=== PATIENT | male | born 1970 | race Caucasian/White ===

== ENCOUNTER 2016-09-09 19:06 | Emergency (ER) | payer MEDICARE, OTHER ==
[2016-09-09 19:24] VITALS: PULSE 84
[2016-09-09 20:18] VITALS: BP 147/76; RESP 16; TEMP 97.7
--- NOTE | 2016-09-09 20:39 | ED ---
General Adult HPI - General Chief complaint: Extremity Injury, Upper Stated complaint: Fall/lt elbow pain Time Seen by Provider: 09/09/16 20:11 Source: patient, RN notes reviewed Mode of arrival: EMS Limitations: no limitations - History of Present Illness Initial comments: This is a 46-year-old male presents with left elbow pain after a fall that happened today. Patient states he slipped on the ice and fell directly onto the left elbow. Patient denies any head injury, loss of consciousness, neck pain or back pain. Patient states the pain is worse with flexion and extension of the left arm. Patient denies any numbness/tingling or weakness to the left upper extremity. Patient denies any hand or wrist pain. Patient denies any recent fever, chills, shortness breath, chest pain, abdominal pain, nausea/ vomiting/diarrhea, back pain, hematuria, headache, or visual changes, or any other complaints. - Related Data Home Medications Medication Instructions Recorded Confirmed Cholecalciferol [Vitamin D3] 1,000 unit PO DAILY 09/09/16 09/09/16 Ranitidine HCl [Zantac] 150 mg PO HS 09/09/16 09/09/16 Previous Rx's Medication Instructions Recorded Mirtazapine [Remeron] 45 mg PO HS #60 tab 03/31/16 clonazePAM [KlonoPIN] 0.5 mg PO TID #20 tab 03/31/16 HYDROcodone/APAP 5-325MG [[place] 1 tab PO Q6HR #12 tab 09/09/16 5-325] Allergies Allergy/AdvReac Type Severity Reaction Status Date / Time diphenhydramine HCl AdvReac Hallucinati Verified 09/09/16 19:23 [From Benadryl] ons Review of Systems ROS Statement: Those systems with pertinent positive or pertinent negative responses have been documented in the HPI. ROS Other: All systems not noted in ROS Statement are negative. Past Medical History Past Medical History: GERD/Reflux, Seizure Disorder Additional Past Medical History / Comment(s): anxiety, mitral valve prolapse last seizure 1999 previous suicide attempts, anxiety and depression History of Any Multi-Drug Resistant Organisms: MRSA Date of last positivie culture/infection: 11/18/15 MDRO Source:: HEAD Past Surgical History: Orthopedic Surgery Additional Past Surgical History / Comment(s): left humerus ORIF, lanced lymph nodes Past Anesthesia/Blood Transfusion Reactions: No Reported Reaction Past Psychological History: ADD/ADHD, Anxiety, Depression, Panic Disorder Smoking Status: Current every day smoker Past Alcohol Use History: None Reported Additional Past Alcohol Use History / Comment(s): He smokes 1 ppd (rolls his own ). He uses marijuana regularly. He denies alcohol use. He does not drive. Past Drug Use History: None Reported - Past Family History Father Family Medical History: Cancer Additional Family Medical History / Comment(s): from Hodgkins lymphoma Mother Family Medical History: Cancer Additional Family Medical History / Comment(s): at age 57 from lung cancer. Sister(s) History Unknown: Yes Additional Family Medical History / Comment(s): One sister with no major medical problems. General Exam - General Exam Comments Initial Comments: General: The patient is awake and alert, in no distress, and does not appear acutely ill. Neck: The neck is supple, there is no tenderness or JVD. Cardiovascular: There is a regular rate and rhythm. No murmur, rub or gallop is appreciated. Respiratory: Lungs are clear to auscultation, respirations are non-labored, breath sounds are equal. No wheezes, stridor, rales, or rhonchi. Musculoskeletal: Patient is tender to palpation along the medial and lateral aspects of the left elbow and to the proximal left forearm and distal left humerus. There is mild swelling to the medial aspect of the left elbow. There is no tenderness to palpation of the left hand, wrist or shoulder. Limited range of motion of the left upper extremity due to pain and left elbow, but patient is able to abduct and flex and extend at the left shoulder joint and patient is able to flex and extend his left wrist. All range of motion to the left digits. Strength 5/5 and Sensation intact. Radial pulses 2+ bilaterally. Capillary refill is normal at less than 2 seconds. Neurological: A&O x 3. CN II-XII intact, There are no obvious motor or sensory deficits. Coordination appears grossly intact. Speech is normal. Skin: Skin is warm and dry and no rashes or lesions are noted. Psychiatric: Normal mood and affect. Limitations: no limitations Course Vital Signs 09/09/16 09/09/16 19:21 20:16 Temperature 98.3 F 97.7 F Pulse Rate 84 84 Respiratory 20 16 Rate Blood Pressure 126/72 147/76 O2 Sat by Pulse 98 100 Oximetry Medical Decision Making - Medical Decision Making This is a 46-year-old male who presents with left elbow pain 1 day. On physical exam Patient is tender to palpation along the medial and lateral aspects of the left elbow and to the proximal left forearm and distal left humerus. There is mild swelling to the medial aspect of the left elbow. There is no tenderness to palpation of the left hand, wrist or shoulder. Limited range of motion of the left upper extremity due to pain and left elbow, but patient is able to abduct and flex and extend at the left shoulder joint and patient is able to flex and extend his left wrist. All range of motion to the left digits. Strength 5/5 and Sensation intact. Radial pulses 2+ bilaterally. Capillary refill is normal at less than 2 seconds. Left elbow x-ray was done and reviewed showing: Small chip fracture of the coronoid process of the ulna. Old healed distal humerus fracture. Patient will be a prescription for [place]. Patient was given a sling in the EC today. A long arm posterior OCL splint to the left upper extremity was placed. Neurovascular was rechecked and is intact. Patient was instructed to stay non- weightbearing to the and upper extremity. Patient was instructed to rest, ice, elevate and splint on until follow-up with orthopedics. Discussed with patient to follow-up with orthopedics in the next 1-2 days. Please return to the EC if symptoms worsen or for any other concerns. Patient was receptive to this plan and patient will be discharged home. I discussed his case with attending physician Dr. Fatima who agrees the plan as stated above. Disposition Clinical Impression: Fracture of coronoid process of left ulna Disposition: HOME SELF-CARE Condition: Good Instructions: Elbow Fracture in Adults (ED) Additional Instructions: Please rest, ice, elevate, and use splint for support. Please stay nonweightbearing to the left upper extremity. Please use medication as prescribed Please follow up with orthopedics tomorrow or as soon as possible. Please return to the EC for any worsening symptoms or for any further concerns. Prescriptions: HYDROcodone/APAP 5-325MG [Wilton 5-325] 1 tab PO Q6HR #12 tab Referrals: None,Stated [Primary Care Provider] - 1-2 days Eric Huff DO [Doctor of Osteopathic Medicine] - 1-2 days Time of Disposition: 21:33
--- NOTE | 2016-09-09 20:51 | XR ---
EXAMINATION TYPE: XR elbow complete LT DATE OF EXAM: 09/09/2016 8:41 PM COMPARISON: NONE HISTORY: Pain and swelling TECHNIQUE: 4 views FINDINGS: There is no dislocation. There is evidence of a nondisplaced chip fracture of the coronoid process of the ulna. I see no evidence of a joint effusion. Joint spaces are fairly normal. Radial he ad is intact. There is some deformity of the distal humerus suggestive of old healed fracture. IMPRESSION: Small chip fracture of the coronoid process of the ulna. Old healed distal humerus fractu re.
[2016-09-09] MEDS ORDERED: IBUPROFEN 600 MG TAB PO STA (21:49)
== END 2016-09-09 21:56 | disposition home or self-care (01) ==
LOC: EC 19:06
DX: S42.132A Displaced fracture of coracoid process, left shoulder, initial encounter for closed fracture (principal); K21.9 Gastro-esophageal reflux disease without esophagitis; F41.0 Panic disorder [episodic paroxysmal anxiety]; F32.9 Major depressive disorder, single episode, unspecified; G40.909 Epilepsy, unspecified, not intractable, without status epilepticus; F17.200 Nicotine dependence, unspecified, uncomplicated; Z88.8 Allergy status to other drugs, medicaments and biological substances; Z79.899 Other long term (current) drug therapy; W00.0XXA Fall on same level due to ice and snow, initial encounter
CPT/HCPCS: 29105; 99283

== ENCOUNTER 2017-01-06 09:47 | Observation (INO) | payer MEDICARE, OTHER ==
[2017-01-06] MEDS ORDERED: SODIUM CHLORIDE 0.9% 1,000 ML IV ONE (10:10)
[2017-01-06] MEDS ORDERED: METOCLOPRAMIDE 5 MG/ML 2 ML VIAL IVP STA (10:10)
[2017-01-06] MEDS ORDERED: FAMOTIDINE 20 MG/2 ML VIAL IV STA (10:10)
--- NOTE | 2017-01-06 10:14 | ED ---
Nausea/Vomiting/Diarrhea HPI - General Chief complaint: Nausea/Vomiting/Diarrhea Stated complaint: Abd Pain Time Seen by Provider: 01/06/17 09:57 Source: patient, EMS Mode of arrival: EMS Limitations: no limitations - History of Present Illness Initial comments: This is a 46-year-old male with a history of GERD and platelet history presents emergency department for epigastric abdominal pain, nausea, and vomiting. He states that he has a history of heartburn and sometimes it progresses into this. He states he has not been able to keep anything down for the last couple of days. He denies any diarrhea or dark or bloody stools. He denies any chest pain or shortness of breath. No lightheadedness or syncope. He states that nothing seems to make the discomfort better or worse. He is consistently vomiting. He does not have a history of gallstones. Denies alcohol abuse. He does state that he smokes marijuana daily. No other complaints. - Related Data Home Medications Medication Instructions Recorded Confirmed Ranitidine HCl [Zantac] 150 mg PO HS 09/09/16 01/06/17 ARIPiprazole [Abilify] 2 mg PO DAILY 01/06/17 01/06/17 DULoxetine HCL [Cymbalta] 30 mg PO DAILY 01/06/17 01/06/17 DULoxetine HCL [Cymbalta] 60 mg PO DAILY 01/06/17 01/06/17 Previous Rx's Medication Instructions Recorded Mirtazapine [Remeron] 45 mg PO HS #60 tab 03/31/16 clonazePAM [KlonoPIN] 0.5 mg PO TID #20 tab 03/31/16 Allergies Allergy/AdvReac Type Severity Reaction Status Date / Time diphenhydramine HCl AdvReac Hallucinati Verified 01/06/17 10:01 [From Benadryl] ons Review of Systems ROS Statement: Those systems with pertinent positive or pertinent negative responses have been documented in the HPI. ROS Other: All systems not noted in ROS Statement are negative. Past Medical History Past Medical History: GERD/Reflux, Seizure Disorder Additional Past Medical History / Comment(s): anxiety, mitral valve prolapse last seizure 1999 previous suicide attempts, anxiety and depression History of Any Multi-Drug Resistant Organisms: MRSA Date of last positivie culture/infection: 11/18/15 MDRO Source:: HEAD Past Surgical History: Orthopedic Surgery Additional Past Surgical History / Comment(s): left humerus ORIF, lanced lymph nodes Past Anesthesia/Blood Transfusion Reactions: No Reported Reaction Past Psychological History: ADD/ADHD, Anxiety, Depression, Panic Disorder Smoking Status: Current every day smoker Past Alcohol Use History: None Reported Additional Past Alcohol Use History / Comment(s): He smokes 1 ppd (rolls his own ). He uses marijuana regularly. He denies alcohol use. He does not drive. Past Drug Use History: None Reported - Past Family History Father Family Medical History: Cancer Additional Family Medical History / Comment(s): from Hodgkins lymphoma Mother Family Medical History: Cancer Additional Family Medical History / Comment(s): at age 57 from lung cancer. Sister(s) History Unknown: Yes Additional Family Medical History / Comment(s): One sister with no major medical problems. General Exam - General Exam Comments Initial Comments: Constitutional: Awake alert . Mildly distressed and uncomfortable vomiting at bedside Head: Normocephalic atraumatic Eyes: no conjunctival injection No scleral icterus EOMI Neck: No JVD Supple Heart: Regular rate rhythm normal S1-S2 no murmurs Lungs: Clear to auscultation bilaterally No wheezing No rales Abdomen: Soft nondistended to palpation in the epigastric region without rebound or guarding Extremities: Non edematous DP pulses intact Radial pulses intact Neuro: A&Ox3 No focal neurologic deficits Psych: Appropriate mood and affect Limitations: no limitations Course Vital Signs 01/06/17 01/06/17 09:50 12:30 Temperature 96.8 F L Pulse Rate 55 L 79 Respiratory 18 18 Rate Blood Pressure 164/79 111/59 O2 Sat by Pulse 100 995 H Oximetry - Reevaluation(s) Reevaluation #1: 01/06/17 10:43 EKG showing sinus bradycardia with a rate of 53. No ST segment changes or T- wave inversions. QTC is 373. Other intervals normal. No ectopy. Medical Decision Making - Medical Decision Making This is a 46-year-old male presents emergency department for nausea vomiting and epigastric discomfort. Labwork showed mild elevation of lipase and amylase. Ultrasound did not appear to show any bile duct dilation or gallbladder pathology. After multiple doses of antiemetics and GI medications he did not have any improvement in his symptoms. Morphine did improve it slightly. Started on fluids and will keep nothing by mouth would like to keep an eye for mild pancreatitis. Dr. Ramirez accepts the admission. - Lab Data Result diagrams: 01/06/17 10:48 01/06/17 11:35 Lab Results 01/06/17 01/06/17 01/06/17 Range/Units 10:13 10:48 11:35 WBC 16.3 H (3.8-10.6) k/uL RBC 4.22 L (4.30-5.90) m/uL Hgb 13.8 (13.0-17.5) gm/dL Hct 40.6 (39.0-53.0) % MCV 96.2 (80.0-100.0) fL MCH 32.7 (25.0-35.0) pg MCHC 34.0 (31.0-37.0) g/dL RDW 12.9 (11.5-15.5) % Plt Count 241 (150-450) k/uL Neutrophils % 90 % Lymphocytes % 6 % Monocytes % 2 % Eosinophils % 1 % Basophils % 0 % Neutrophils # 14.7 H (1.3-7.7) k/uL Lymphocytes # 1.0 (1.0-4.8) k/uL Monocytes # 0.4 (0-1.0) k/uL Eosinophils # 0.1 (0-0.7) k/uL Basophils # 0.1 (0-0.2) k/uL Sodium 144 (137-145) mmol/L Potassium 4.6 (3.5-5.1) mmol/L Chloride 112 H (98-107) mmol/L Carbon Dioxide 24 (22-30) mmol/L Anion Gap 8 mmol/L BUN 12 (9-20) mg/dL Creatinine 0.70 (0.66-1.25) mg/dL Est GFR (MDRD) Af Amer >60 (>60 ml/min/1.73 sqM) Est GFR (MDRD) Non-Af >60 (>60 ml/min/1.73 sqM) Glucose 116 H (74-99) mg/dL Calcium 8.8 (8.4-10.2) mg/dL Magnesium 1.6 (1.6-2.3) mg/dL Total Bilirubin 0.7 (0.2-1.3) mg/dL AST 23 (17-59) U/L ALT 31 (21-72) U/L Alkaline Phosphatase 50 (38-126) U/L Total Protein 6.9 (6.3-8.2) g/dL Albumin 4.0 (3.5-5.0) g/dL Amylase 125 H (30-110) U/L Lipase 527 H (23-300) U/L Urine Opiates Screen Not Detected (NotDetected) Ur Oxycodone Screen Not Detected (NotDetected) Urine Methadone Screen Not Detected (NotDetected) Ur Propoxyphene Screen Not Detected (NotDetected) Ur Barbiturates Screen Not Detected (NotDetected) U Tricyclic Antidepress Not Detected (NotDetected) Ur Phencyclidine Scrn Not Detected (NotDetected) Ur Amphetamines Screen Not Detected (NotDetected) U Methamphetamines Scrn Not Detected (NotDetected) U Benzodiazepines Scrn Not Detected (NotDetected) Urine Cocaine Screen Not Detected (NotDetected) U Marijuana (THC) Screen Detected H (NotDetected) Serum Alcohol <10 mg/dL Disposition Clinical Impression: Pancreatitis Disposition: ADMITTED IP TO THIS [facility] Condition: Stable
[2017-01-06] MEDS ORDERED: ONDANSETRON 4 MG/2 ML VIAL IVP STA (11:08)
[2017-01-06] MEDS ORDERED: LORazepam 2 MG/ML SYRINGE IV STA (11:08)
[2017-01-06 11:14] LABS: Basophils # (A) 0.1 k/uL (0-0.2); Basophils % (A) 0 %; CH 32.8; CHCM 34.3; Eosinophils # (A) 0.1 k/uL (0-0.7); Eosinophils % (A) 1 %; HCT 40.6 % (39.0-53.0); HDW 2.45; HGB 13.8 gm/dL (13.0-17.5); Luc # (Auto) 0.06; Luc % (Auto) 0; Lymphocytes % (A) 6 %; MCH 32.7 pg (25.0-35.0); MCV 96.2 fL (80.0-100.0); Mean Platelet Volume 6.7; Monocytes # (A) 0.4 k/uL (0-1.0); Monocytes % (A) 2 %; Neutrophils # (A) 14.7 k/uL (1.3-7.7); Neutrophils % (A) 90 %; RBC 4.22 m/uL (4.30-5.90); RDW 12.9 % (11.5-15.5); WBC 16.3 k/uL (3.8-10.6); WBC (Perox) 16.73
[2017-01-06] MEDS ORDERED: MAG HYDROX/AL HYDROX/SIMETH 30 ML, HYOSCYAMINE ELIXIR 10 ML, CIMETIDINE HCL 300 MG, LID... PO STA ×4 (11:48)
[2017-01-06 12:05] LABS: ALT 31 U/L (21-72); AST 23 U/L (17-59); Alcohol <10 mg/dL; Alkaline Phosphatase 50 U/L (38-126); Amylase 125 U/L (30-110); Anion Gap 8 mmol/L; Blood Urea Nitrogen 12 mg/dL (9-20); Calcium 8.8 mg/dL (8.4-10.2); Carbon Dioxide 24 mmol/L (22-30); Chloride 112 mmol/L (98-107); Glucose 116 mg/dL (74-99); Magnesium 1.6 mg/dL (1.6-2.3); Non-African American GFR(MDRD) >60 (>60 ml/min/1.73 sqM); Sodium 144 mmol/L (137-145); Total Bilirubin 0.7 mg/dL (0.2-1.3); Total Protein 6.9 g/dL (6.3-8.2)
[2017-01-06 12:06] LABS: Potassium 4.6 mmol/L (3.5-5.1)
[2017-01-06] MEDS ORDERED: MORPHINE SULFATE 4 MG/ML SYRINGE IVP STA (12:17)
[2017-01-06] MEDS: SODIUM CHLORIDE 0.9% 1,000 ML IV SCH ×3 (12:30→22:22)
[2017-01-06] MEDS ORDERED: NALOXONE 0.4 MG/ML 1 ML VIAL IV PRN (13:31)
[2017-01-06] MEDS ORDERED: MORPHINE SULFATE 4 MG/ML SYRINGE IV PRN (13:31)
--- NOTE | 2017-01-06 13:35 | US ---
EXAMINATION TYPE: US abdomen limited DATE OF EXAM: 01/06/2017 12:57 PM COMPARISON: NONE CLINICAL HISTORY: 46-year-old male with pain, pancreatitis TECHNIQUE: Multiple sonographic images of the right upper quadrant are obtained. FINDINGS: Liver Length: 12.3 cm Gallbladder Wall: 0.2 cm CBD: 0.5 cm Right Kidney: 10.6 x 3.6 x 4.5 cm Pancreas: Only a small portion of the pancreatic neck is seen. Most of the pancreas is obscured by b owel gas shadowing and not assessed. Liver: Homogeneous echotexture without focal lesion. Gallbladder: No abnormal gallbladder distention, wall thickening, pericholecystic fluid, or shadowin g calculi. Evidence for sonographic Gibbs's sign: no CBD: Within normal limits Right Kidney: No hydronephrosis. IMPRESSION: 1. Most of the pancreas is obscured and not assessed. Note, low sensitivity of ultrasound for pancrea titis. 2. No evidence for cholelithiasis or biliary ductal dilatation.
[2017-01-06 14:10] VITALS: BMI 20.7
[2017-01-06] MEDS ORDERED: LORazepam 0.5 MG TAB PO PRN (15:27)
--- NOTE | 2017-01-06 16:01 | XR ---
EXAMINATION TYPE: XR chest 1V portable DATE OF EXAM: 01/06/2017 3:46 PM COMPARISON: Prior chest x-ray 24 April 2010 HISTORY: TECHNIQUE: Single frontal view of the chest is obtained. FINDINGS: There is no focal air space opacity, pleural effusion, or pneumothorax seen. The cardiac silhouette size is stable. Prominent lung volume could be indicative of underlying COPD. The osseou s structures are intact. IMPRESSION: No acute process.
[2017-01-06] MEDS: ONDANSETRON 4 MG/2 ML VIAL IVP PRN (17:04)
[2017-01-06] MEDS: clonazePAM 0.5 MG TAB PO SCH (19:07)
--- NOTE | 2017-01-06 20:58 | HP ---
DATE OF ADMISSION: 01/06/2017 CHIEF COMPLAINT: Abdominal pain. HISTORY OF PRESENT ILLNESS: This 46-year-old gentleman with a past medical history of GERD, history of seizure disorder, history of mitral valve prolapse, history of MRSA, history of ADD/ADHD, history of anxiety, depression, panic disorder, being followed by no primary physician in the outpatient setting, apparently was having abdominal pain for the last 2 days. The pain was situated in the upper abdomen, epigastric. Associated with nausea and vomiting; patient unable to keep anything down. Patient also had heartburn. Patient denies any alcohol, any substance abuse except THC. The patient came to [facility]. Amylase and lipase are elevated. Ultrasound of the abdomen did not show any acute abnormality. Patient admitted for further evaluation and treatment. There is no history of any fever, rigor, or chills. No history of any headache, loss of consciousness. PAST MEDICAL HISTORY: 1. History of seizure disorder. 2. History of GERD. 3. Mitral valve prolapse. 4. History of pancreatitis in 2011. 5. ADD/ADHD. 6. History of anxiety, depression, panic disorder. Medications prior to admission include: 1. Cymbalta 30 mg p.o. daily. 2. Abilify 2 mg p.o. daily. 3. Klonopin 0.5 mg t.i.d. 4. Zantac 150 mg at bedtime. 5. Remeron 45 mg at bedtime. ALLERGIES: BENADRYL. FAMILY HISTORY: History of cancer in the family, non-Hodgkin's lymphoma. SOCIAL HISTORY: History of smoking on a daily basis. No history of alcohol. THC present. REVIEW OF SYSTEMS: ENT: No diminishing hearing. No diminished vision. CARDIOVASCULAR SYSTEM: No angina, palpitations. RESPIRATORY SYSTEM: No cough, hemoptysis. GI: As mentioned earlier. : No dysuria, retention. NERVOUS SYSTEM: No numbness or weakness. ALLERGY/IMMUNOLOGY: No asthma or hayfever. MUSCULOSKELETAL: No history of arthritis. CONSTITUTIONAL: As mentioned earlier. DERMATOLOGY: Negative. RHEUMATOLOGY: Negative. PSYCHIATRY: As mentioned earlier. PHYSICAL EXAMINATION: Alert and oriented x3. Pulse 65, blood pressure 126/88, respiration 20, temperature 97.7, pulse ox 99% on room air. HEENT: Conjunctivae normal. Oral mucosa moist. NECK: No jugular venous distention. No carotid bruit. No lymph node enlargement. CARDIOVASCULAR SYSTEM: S1, S2 muffled. No S3. No S4. RESPIRATORY SYSTEM: Breath sounds diminished at the bases. No rhonchi. No crackles. ABDOMEN: Soft, scaphoid. Mild diffuse discomfort. No guarding. No rigidity. No tenderness present. Bowel sounds present. No ascites. LEGS: No edema. No swelling. NERVOUS SYSTEM: Higher functions as mentioned earlier. Cranial nerves 2-12 grossly intact. No focal motor or sensory deficit. LYMPHATICS: No lymph node palpable in neck, axillae or groin. SKIN: No ulcer, rash, bleeding. JOINTS: No active deforming arthropathy. LABS: WBC 16.3. Sodium 142, potassium 4.6. ASSESSMENT: 1. Abdominal pain, nausea, vomiting; possible acute pancreatitis with systemic inflammatory response syndrome. 2. Increased random blood sugar. 3. Increased chloride. 4. Tetrahydrocannabinol positive. 5. History of nicotine dependence. 6. Increased white count, possibly reactive. 7. History of seizure disorder. 8. History of gastroesophageal reflux disease. 9. Mitral valve prolapse. 10. History of pancreatitis. 11. History of methicillin-resistant Staphylococcus aureus. 12. History of left humerus open reduction internal fixation. 13. History of attention deficit disorder/attention deficit hyperactivity disorder. 14. History of anxiety, depression not otherwise specified. 15. History of panic disorder. 16. History of tetrahydrocannabinol. 17. FULL CODE. RECOMMENDATIONS AND DISCUSSION: In this 46-year-old gentleman who presented with multiple complex medical issues, we will monitor the patient closely, continue the current medication, continue with symptomatic treatment. Otherwise, at this time I recommend starting clear liquids and advance as tolerated. A CT scan of the abdomen and pelvis done previously showed no evidence of any pancreatic abnormalities previously. Otherwise, we will continue to monitor. I would also recommend the patient to follow closely with a primary physician in the outpatient setting as well as Psychiatry. Patient understands and agrees. See orders for further details. Pain management. Further recommendations to follow.
[2017-01-06] MEDS ORDERED: TEMAZEPAM 15 MG CAP PO PRN (21:00)
[2017-01-06] MEDS: PANTOPRAZOLE 40 MG/10 ML VIAL IVP SCH (21:23)
[2017-01-06] MEDS: MIRTAZAPINE 45 MG TABLET PO SCH (21:23)
[2017-01-07] MEDS: clonazePAM 0.5 MG TAB PO SCH ×4 (00:54→21:36)
[2017-01-07] MEDS: SODIUM CHLORIDE 0.9% 1,000 ML IV SCH ×4 (04:00→17:28)
[2017-01-07] MEDS: ARIPiprazole 2 MG TAB PO SCH (07:31)
[2017-01-07] MEDS: HYDROcodone/APAP 5-325MG 1 EACH TAB PO PRN ×3 (07:32→18:22)
[2017-01-07] MEDS: PANTOPRAZOLE 40 MG/10 ML VIAL IVP SCH ×2 (07:32→21:29)
[2017-01-07] MEDS: DULoxetine HCL 30 MG CAPSULE.DR PO SCH (07:32)
[2017-01-07 08:18] LABS: Basophils % (A) 1 %; CH 32.7; CHCM 33.4; Eosinophils # (A) 0.1 k/uL (0-0.7); Eosinophils % (A) 1 %; HCT 38.8 % (39.0-53.0); HGB 12.8 gm/dL (13.0-17.5); Luc # (Auto) 0.17; Luc % (Auto) 2; Lymphocytes # (A) 2.4 k/uL (1.0-4.8); Lymphocytes % (A) 33 %; MCH 32.6 pg (25.0-35.0); MCHC 33.1 g/dL (31.0-37.0); MCV 98.4 fL (80.0-100.0); Mean Platelet Volume 6.4; Monocytes # (A) 0.4 k/uL (0-1.0); Monocytes % (A) 6 %; Neutrophils # (A) 4.1 k/uL (1.3-7.7); Neutrophils % (A) 56 %; RBC 3.94 m/uL (4.30-5.90); WBC 7.3 k/uL (3.8-10.6); WBC (Perox) 7.86
[2017-01-07 08:57] LABS: ALT 24 U/L (21-72); AST 14 U/L (17-59); Alkaline Phosphatase 44 U/L (38-126); Amylase 44 U/L (30-110); Anion Gap 5 mmol/L; Blood Urea Nitrogen 8 mg/dL (9-20); Carbon Dioxide 22 mmol/L (22-30); Chloride 116 mmol/L (98-107); Cholesterol 161 mg/dL (<200); Glucose 87 mg/dL (74-99); HDL Cholesterol 29 mg/dL (40-60); Non-African American GFR(MDRD) >60 (>60 ml/min/1.73 sqM); Potassium 3.5 mmol/L (3.5-5.1); Sodium 143 mmol/L (137-145); Total Bilirubin 0.6 mg/dL (0.2-1.3); Total Protein 5.2 g/dL (6.3-8.2); Triglycerides 107 mg/dL (<150)
[2017-01-07] MEDS ORDERED: DULoxetine HCL 60 MG CAPSULE.DR PO SCH (09:00)
[2017-01-07] MEDS: MULTIVITAMINS, THERA 1 EACH TAB PO SCH (13:26)
[2017-01-07 18:01] LABS: Appearance,Urine Clear (Clear); Bilirubin,Urine Negative (Negative); Glucose,Urine (UA) Negative (Negative); Ketones,Urine Negative (Negative); Leukocyte Esterase,Urine Negative (Negative); Nitrite,Urine Negative (Negative); Protein,Urine Negative (Negative); Specific Gravity,Urine 1.007 (1.001-1.035); UA Billing (MACRO vs. MICRO) CHEM; Urobilinogen,Urine <2.0 mg/dL (<2.0)
--- NOTE | 2017-01-07 19:24 | PN ---
DATE OF SERVICE: 01/07/2017 This 46-year-old gentleman admitted with abdominal pain, features of acute pancreatitis is improved significantly. The patient did have some vomiting and abdominal discomfort yesterday. No chest pain. No palpitations. No fever. The patient is unable to keep anything down. On exam, alert and oriented x3. Pulse 69, blood pressure 111/59, respirations 18, temperature 97.2, pulse ox 97% on room air. HEENT: Conjunctivae normal. NECK: No jugular venous distention. CARDIOVASCULAR: S1 and S2, muffled. RESPIRATORY: Breath sounds diminished at the bases. No rhonchi, no crackles. ABDOMEN: Soft, mild diffuse discomfort in the upper abdomen present. LEGS: No edema, no swelling. NERVOUS SYSTEM: No focal deficits. LABS: WBC 7.3, hemoglobin is 12.8 and LDL is 111, HDL is 29, total cholesterol is 161. Amylase and lipase are 44 and 91. Urine is positive. ASSESSMENT: 1. Abdominal pain, nausea, vomiting, possible acute pancreatitis with systemic inflammatory response syndrome, present on admission, improving. 2. Increased random blood sugar. 3. Increased chloride. 4. THC positive. 5. History of nicotine dependence. 6. Increased LDL and hypercholesterolemia. 7. Increased WBC, possibly reactive. 8. History of seizure disorder. 9. History of gastroesophageal reflux disease. 10. History of mitral valve prolapse. 11. History of pancreatitis. 12. History of methicillin-resistant Staphylococcus aureus. 13. History of left humerus open reduction and internal fixation. 14. History of attention deficit hyperactivity disorder and attention deficit disorder. 15. History of anxiety, depression, not otherwise specified. 16. History of panic disorder. 17. History of tetrahydrocannabinol. 18. FULL CODE. RECOMMENDATIONS AND DISCUSSION: I recommend to continue the current medications, continue monitoring and symptomatic treatment. Otherwise at this time I would recommend continue with current medications. Advance diet. The patient is still symptomatic even though enzymes are normalized. Will continue to monitor. Further recommendations to follow. MTDD
[2017-01-07] MEDS: MIRTAZAPINE 45 MG TABLET PO SCH (21:29)
[2017-01-07] MEDS: NICOTINE 14MG/24HR PATCH TRANSDERM SCH (21:30)
[2017-01-08] MEDS: SODIUM CHLORIDE 0.9% 1,000 ML IV SCH ×5 (06:00→21:37)
[2017-01-08 08:30] LABS: ALT 26 U/L (21-72); AST 14 U/L (17-59); Alkaline Phosphatase 43 U/L (38-126); Amylase 35 U/L (30-110); Anion Gap 7 mmol/L; Blood Urea Nitrogen 9 mg/dL (9-20); Calcium 8.1 mg/dL (8.4-10.2); Carbon Dioxide 22 mmol/L (22-30); Chloride 112 mmol/L (98-107); Glucose 88 mg/dL (74-99); Non-African American GFR(MDRD) >60 (>60 ml/min/1.73 sqM); Potassium 3.6 mmol/L (3.5-5.1); Sodium 141 mmol/L (137-145); Total Bilirubin 0.5 mg/dL (0.2-1.3); Total Protein 5.3 g/dL (6.3-8.2)
[2017-01-08 08:31] LABS: Basophils # (A) 0.1 k/uL (0-0.2); Basophils % (A) 1 %; CH 33.3; Eosinophils # (A) 0.1 k/uL (0-0.7); Eosinophils % (A) 2 %; HCT 38.1 % (39.0-53.0); HDW 2.58; HGB 13.3 gm/dL (13.0-17.5); Luc # (Auto) 0.13; Luc % (Auto) 3; Lymphocytes % (A) 39 %; MCH 33.3 pg (25.0-35.0); MCHC 34.9 g/dL (31.0-37.0); MCV 95.3 fL (80.0-100.0); Mean Platelet Volume 6.6; Monocytes # (A) 0.4 k/uL (0-1.0); Monocytes % (A) 7 %; Neutrophils # (A) 2.5 k/uL (1.3-7.7); Neutrophils % (A) 48 %; RDW 12.6 % (11.5-15.5); WBC 5.1 k/uL (3.8-10.6); WBC (Perox) 4.54
[2017-01-08] MEDS: NICOTINE 14MG/24HR PATCH TRANSDERM SCH (08:41)
[2017-01-08] MEDS: PANTOPRAZOLE 40 MG/10 ML VIAL IVP SCH ×2 (08:42→21:34)
[2017-01-08] MEDS: ARIPiprazole 2 MG TAB PO SCH (08:42)
[2017-01-08] MEDS: DULoxetine HCL 30 MG CAPSULE.DR PO SCH (08:42)
[2017-01-08] MEDS: clonazePAM 0.5 MG TAB PO SCH ×3 (08:48→21:33)
[2017-01-08] MEDS: ONDANSETRON 4 MG/2 ML VIAL IVP PRN ×3 (09:15→19:00)
[2017-01-08] MEDS: MULTIVITAMINS, THERA 1 EACH TAB PO SCH (12:04)
[2017-01-08] MEDS: HYDROmorphone 1 MG/ML 1 ML SYRINGE IVP PRN ×2 (14:12→20:02)
[2017-01-08] MEDS: IOHEXOL 350 MG/ML 25 ML BOTTLE (ORAL USE) PO PRN ×2 (16:17→17:20)
--- NOTE | 2017-01-08 18:19 | CT ---
EXAMINATION TYPE: CT abdomen pelvis wo con DATE OF EXAM: 01/08/2017 6:03 PM COMPARISON: 01/06/2015 HISTORY: Nausea and Upper Abd pain CT DLP: 255.2 mGycm Automated exposure control for dose reduction was used. TECHNIQUE: Helical acquisition of images was performed from the lung bases through the pelvis. FINDINGS: Lung bases are clear. There is no pleural effusion. There is a small hiatal hernia. Liver spleen pancreas gallbladder appear normal. Bile ducts are not dilated. There is no adrenal mass . Kidneys have normal size and contour. There is no hydronephrosis. There is no retroperitoneal adeno diony. Abdominal aorta is atheromatous. There is no sign of a bowel obstruction. There is no ascites. Appendix appears normal. Bladder distends smoothly. There is no pelvic mass. I s ee no bony destructive process. IMPRESSION: SMALL HIATAL HERNIA. NO SIGN OF ACUTE ABDOMEN AND PELVIS. MILD ATHEROSCLEROTIC VASCULAR DISEASE. NORM AL APPENDIX. NO ADVERSE CHANGE COMPARED TO OLD EXAM.
--- NOTE | 2017-01-08 18:28 | PN ---
DATE OF SERVICE: 01/08/2017 This 46-year-old gentleman admitted with abdominal pain, nausea, vomiting, possibly acute pancreatitis also, is complaining of incessant vomiting. Amylase and lipase improved significantly. The patient is complaining of repeat episodes of vomiting and severe abdominal pain also. PAST MEDICAL HISTORY: Reviewed. REVIEW OF SYSTEMS: CARDIOVASCULAR: No angina. RESPIRATORY: As mentioned earlier. GI: As mentioned earlier. GENITOURINARY: No dysuria. NERVOUS SYSTEM: No numbness or weakness. Current medications are reviewed and include: 1. Guys 5 mg q.6 p.r.n. 2. Abilify 2 mg daily. 3. Klonopin 0.5 mg t.i.d. 4. Cymbalta 30 mg daily. 5. Dilaudid p.r.n. 6. Ativan 0.5 mg q.p.m. p.r.n. 7. Remeron 40 mg q.h.s. 8. Morphine sulfate. 9. Multivitamins. 10. Narcan. 11. Habitrol 14. 12. Zofran. 13. Protonix. 14. Restoril. The patient is alert and oriented x3. Pulse is 61, blood pressure 130/64, respirations 18, temperature 97.8, pulse ox 97% on room air. HEENT: Conjunctivae normal. Oral mucosa moist. NECK: No jugular venous distention. No carotid bruit. No lymph node enlargement. CARDIOVASCULAR: S1 and S2, muffled. No S3, no S4. RESPIRATORY: Breath sounds diminished at the bases. No rhonchi, no crackles. ABDOMEN: Soft, mild diffuse discomfort present. No guarding, no rigidity. No mass palpable. LEGS: No edema, no swelling. NERVOUS SYSTEM: No focal deficits. LABS: WBC 5, hemoglobin 13.3, albumin is 2.9. Troponin is 5.3, LDL is 111, HDL is 29. Amylase and lipase are normal. Alcohol is less than 10. ASSESSMENT: 1. Abdominal pain, nausea, vomiting possibly acute pancreatitis with systemic inflammatory response syndrome, present on admission. 2. Continued vomiting, unable to keep anything down. 3. Increased random blood sugar. 4. History of chloride. 5. Abdominal pain. 6. Tetrahydrocannabinol positive. 7. History of nicotine dependence. 8. Increased LDL and hypercholesterolemia. 9. Increased WBC, possibly reactive, present on admission. 10. History of seizure disorder. 11. History of gastroesophageal reflux disease. 12. History of mitral valve prolapse. 13. History of pancreatitis. 14. History of methicillin-resistant Staphylococcus aureus. 15. History of left humerus open reduction and internal fixation. 16. History of attention deficit hyperactivity disorder and attention deficit disorder 17. History of anxiety and depression, not otherwise specified. 18. History of panic disorder. 19. History of tetrahydrocannabinol. 20. FULL CODE. RECOMMENDATIONS AND DISCUSSION: In this 47-year-old gentleman who presented with multiple complex medical issues, will monitor the patient closely. Continue with the current medications and symptomatic treatment. Otherwise I would obtain a Gastroenterology consultation. I would also recommend a CT scan of the abdomen and pelvis for further evaluation. Otherwise consider possible EGD. Continue symptomatic treatment. The Protonix has been increased to twice daily. Otherwise, continue to monitor. Further recommendations to follow.
[2017-01-08] MEDS: MIRTAZAPINE 45 MG TABLET PO SCH (21:33)
[2017-01-08 23:26] VITALS: RESP 16
[2017-01-09] MEDS: SODIUM CHLORIDE 0.9% 1,000 ML IV SCH ×3 (06:21→11:32)
[2017-01-09 07:50] VITALS: BP 122/63; PULSE 51; TEMP 98.2
[2017-01-09 08:18] LABS: Basophils % (A) 1 %; CH 32.8; CHCM 34.3; Eosinophils # (A) 0.1 k/uL (0-0.7); Eosinophils % (A) 3 %; HCT 37.6 % (39.0-53.0); HDW 2.51; HGB 12.4 gm/dL (13.0-17.5); Luc # (Auto) 0.14; Luc % (Auto) 3; Lymphocytes # (A) 1.9 k/uL (1.0-4.8); Lymphocytes % (A) 38 %; MCH 31.6 pg (25.0-35.0); Mean Platelet Volume 6.3; Monocytes # (A) 0.4 k/uL (0-1.0); Monocytes % (A) 8 %; Neutrophils # (A) 2.3 k/uL (1.3-7.7); Neutrophils % (A) 47 %; RBC 3.92 m/uL (4.30-5.90); RDW 12.7 % (11.5-15.5); WBC 4.8 k/uL (3.8-10.6); WBC (Perox) 5.02
[2017-01-09 08:25] LABS: ALT 25 U/L (21-72); AST 14 U/L (17-59); Alkaline Phosphatase 39 U/L (38-126); Amylase 39 U/L (30-110); Anion Gap 8 mmol/L; Blood Urea Nitrogen 7 mg/dL (9-20); Calcium 8.2 mg/dL (8.4-10.2); Carbon Dioxide 21 mmol/L (22-30); Chloride 110 mmol/L (98-107); Glucose 78 mg/dL (74-99); Non-African American GFR(MDRD) >60 (>60 ml/min/1.73 sqM); Potassium 3.5 mmol/L (3.5-5.1); Sodium 139 mmol/L (137-145); Total Bilirubin 0.7 mg/dL (0.2-1.3); Total Protein 5.4 g/dL (6.3-8.2)
[2017-01-09] MEDS: ARIPiprazole 2 MG TAB PO SCH (08:32)
[2017-01-09] MEDS: MULTIVITAMINS, THERA 1 EACH TAB PO SCH (08:32)
[2017-01-09] MEDS: DULoxetine HCL 30 MG CAPSULE.DR PO SCH (08:32)
[2017-01-09] MEDS: clonazePAM 0.5 MG TAB PO SCH (08:32)
[2017-01-09] MEDS: PANTOPRAZOLE 40 MG/10 ML VIAL IVP SCH (08:32)
[2017-01-09] MEDS: NICOTINE 14MG/24HR PATCH TRANSDERM SCH (08:32)
--- NOTE | 2017-01-09 09:25 | P.CONS ---
History of Present Illness - Reason for Consult Consult date: 01/09/17 Nausea vomiting Requesting physician: Js Ramirez - History of Present Illness 46-year-old male admitted with intractable nausea vomiting and elevated lipase with history of pancreatitis, suicidal ideations, depression, ADHD, seizure disorder, GERD, MRSA, marijuana and nicotine cigarette dependency, history of methamphetamine usage. Presently reports improvement in nausea vomiting. The GI symptoms of been going on for years. Patient had a documented episode of acute pancreatitis back in 2014 with a lipase 1100 with normal liver function tests. No history of autoimmune disorders or EtOH abuse. No changes in medications. Symptoms of nausea vomiting sometimes midabdominal pain has no pattern sometimes associated male sometimes not. Denies weight loss, fever, chills, hematemesis, hematochezia, or melena. Triglycerides 107. Admission white count 16.3 currently 4.8. Hemoglobin is 12.4. Lipase 527 currently 83. Amylase 125 currently 39. LFTs total bilirubin within normal limits. Serum alcohol less than 10. CT abdomen and pelvis reported normal appearance of appendix. No ascites. Liver spleen pancreas gallbladder appeared normal. Bile duct was not dilated. Ultrasound abdomen liver homogenous without focal lesion. Gallbladder no calculi distention thickening or pericholecystic fluid. CBD 0.5 cm. Pancreas mostly obscured by gas. Review of Systems Constitutional: Denies fever, chills, sweats, weight gain, or loss. HEENT: Negative for migraines, blurred vision or loss, earaches, drainage, tinnitus, oral mucosal lesions, dysphagia, or odynophagia. Cardiac: Negative for chest pain, arrhythmias, or palpitation. Respiratory: [place] 1 and cigarette usage. Negative for shortness of breath, hemoptysis, cough, or sputum production. Gastrointestinal: See HPI for pertinent findings. Genitourinary: Negative for hematuria, urgency, frequency, polyuria, dysuria, or penile discharge. Musculoskeletal: Negative for muscle aches, swelling, arthritis, and arthralgias. Neurologic: Negative for stroke or TIA. Endocrine: Negative for thyroid problems. Skin: Negative for rash or itching. Psychiatric: Suicidal ideations. Depression. History of methamphetamine usage. All systems: negative (See HPI) Past Medical History Past Medical History: GERD/Reflux, Seizure Disorder Additional Past Medical History / Comment(s): mitral valve prolapse, last seizure 1999, L inguinal hernia, pancreatitis in 2011, generalized pain unknown cause but pt believes due to arthritis and fibromyalgia-not yet diagnosed. History of Any Multi-Drug Resistant Organisms: MRSA Year Discovered:: 11/18/15 MDRO Source:: HEAD Past Surgical History: Orthopedic Surgery Additional Past Surgical History / Comment(s): left humerus ORIF with pinning since removed, lanced lymph nodes Past Anesthesia/Blood Transfusion Reactions: No Reported Reaction Past Psychological History: ADD/ADHD, Anxiety, Depression, Panic Disorder Additional Psychological History / Comment(s): ADHD. Pt resides alone. He does not drive. He gets rides thru [facility]. He sees Kezia Hernandez. Pt has had previous suicide attempts but states his depression is stable at this time. He denies any thoughts of suicide or wishing he were . Smoking Status: Current every day smoker Past Alcohol Use History: None Reported Additional Past Alcohol Use History / Comment(s): He smokes over 1 ppd (rolls his own). He uses marijuana occasionally. He denies alcohol Past Drug Use History: None Reported - Past Family History Father Family Medical History: Cancer Additional Family Medical History / Comment(s): from Hodgkins lymphoma. He also had prostate cancer. He at 60yrs. Mother Family Medical History: Cancer Additional Family Medical History / Comment(s): at age 57 from lung cancer. She was a smoker. Sister(s) History Unknown: Yes Additional Family Medical History / Comment(s): One sister with no major medical problems. Medications and Allergies Home Medications Medication Instructions Recorded Confirmed Type Ranitidine HCl [Zantac] 150 mg PO HS 09/09/16 01/06/17 History ARIPiprazole [Abilify] 2 mg PO DAILY 01/06/17 01/06/17 History DULoxetine HCL [Cymbalta] 30 mg PO DAILY 01/06/17 01/06/17 History Allergies Allergy/AdvReac Type Severity Reaction Status Date / Time diphenhydramine HCl AdvReac Hallucinati Verified 01/06/17 10:01 [From Benadryl] ons Physical Exam Vitals: Vital Signs Temp Pulse Resp BP Pulse Ox 01/09/17 08:00 51 L 16 01/09/17 07:00 98.2 F 51 L 16 122/63 97 01/08/17 23:00 97 F L 54 L 16 114/55 97 01/08/17 15:59 61 18 Intake and Output 01/08/17 01/09/17 01/09/17 22:59 06:59 14:59 Intake Total 375 1000 Balance 375 1000 Intake: Intake, IV Titration 375 1000 Amount Sodium Chloride 0.9% 1, 375 1000 000 ml @ 200 mls/hr IV . Q5H [facility] Rx#:[id number] Other: Voiding Method Toilet Toilet Toilet # Voids 1 Weight 65.77 kg 65.77 kg 65.77 kg Patient Weight 01/10/17 06:59 Weight 65.77 kg General appearance: The patient is alert, oriented, in no acute distress. HET: Head is normocephalic and atraumatic. Pupils are equal and reactive. Oropharynx is clear without lesions. Neck: Supple without lymphadenopathy. Trachea midline. Heart: S1 S2. Regular rate and rhythm. Lungs: No crackles or wheezes are heard. Abdomen: Soft, nontender, nondistended with bowel sounds. No peritoneal signs. No palpable organomegaly or masses. Extremities: Normal skin color and turgor. No cyanosis, rash, ulceration, clubbing, or edema. Radial and pedal pulses are 2/4 bilaterally. Neurological: No focal deficits. Strength and sensation are grossly intact. Results CBC & Chem 7: 01/09/17 07:52 01/09/17 07:52 Labs: Abnormal Lab Results - Last 24 Hours (Table) 01/09/17 01/09/17 Range/Units 07:52 07:52 RBC 3.92 L (4.30-5.90) m/uL Hgb 12.4 L (13.0-17.5) gm/dL Hct 37.6 L (39.0-53.0) % Chloride 110 H (98-107) mmol/L Carbon Dioxide 21 L (22-30) mmol/L BUN 7 L (9-20) mg/dL Calcium 8.2 L (8.4-10.2) mg/dL AST 14 L (17-59) U/L Total Protein 5.4 L (6.3-8.2) g/dL Albumin 3.0 L (3.5-5.0) g/dL Microbiology - Last 24 Hours (Table) 01/06/17 17:45 Urine Culture - Final Urine,Clean Catch 01/06/17 16:04 Blood Culture - Preliminary Blood No Growth after [address] scan - abdomen: report reviewed (Reviewed by Dr. Mendoza) US - abdomen: report reviewed (Reviewed by Dr. Mendoza) Assessment and Plan (1) Acute pancreatitis Narrative/Plan: Etiology unclear history of pancreatitis in 2014. Possible autoimmune. Status: Acute Plan: 1. Scopolamine patch for nausea. [place] with antinausea medications. Will allow light diet as tolerated today. Discharge per medicine. 2. JULIA. Subclass IgG 1-4. 3. Return to GI office in 10-14 days for reevaluation possible outpatient MRCP possible EUS. Thank you for this kind referral and the opportunity to participate in the care of your patient. This consultation was discussed with Dr. Mendoza. The impression and plan of care have been directed as dictated.
[2017-01-09] MEDS ORDERED: Potassium Replacement Protocol 1 EACH MISC MISCELLANE PRN (09:43)
[2017-01-09] MEDS ORDERED: SCOPOLAMINE 1.5MG/72HR PATCH TRANSDERM SCH (11:00)
[2017-01-09] MEDS: ONDANSETRON 4 MG/2 ML VIAL IVP PRN (11:35)
[2017-01-09 19:13] LABS: ANA w/Reflex to Titer NEGATIVE (NEGATIVE)
[2017-01-10 10:01] LABS: IgG Subclass 3 31.1 mg/dL (11.0-85.0); IgG Subclass 4 67.9 mg/dL (3.0-175.0)
--- NOTE | 2017-01-10 16:45 | DS ---
DATE OF ADMISSION: 01/06/2017 DATE OF DISCHARGE: 01/09/2017 DATE OF SERVICE: 01/09/2017 FINAL DIAGNOSES: 1. Abdominal pain, nausea, vomiting, possible acute pancreatitis with SIRS, present on admission, improved. 2. Continued vomiting, possible acute gastritis, rule out peptic ulcer disease. 3. Increased random blood sugar. 4. History of increased chloride. 5. Abdominal pain. 6. THC positive. 7. History of nicotine dependence. 8. Increased LDL and hypercholesterolemia. 9. Increased WBC, possibly reactive, present on admission. 10. History of seizure disorder. 11. Gastroesophageal reflux disease. 12. Mitral valve prolapse. 13. History of pancreatitis. 14. History of methicillin-resistant Staphylococcus aureus. 15. History of left humerus ORIF. 16. History of attention deficit disorder and attention deficit hyperactivity disorder. 17. History of anxiety, depression, not otherwise specified. 18. History of panic disorder. 19. History of THC. 20. FULL CODE. DISCHARGE DISPOSITION: The patient will be discharged in a stable condition with guarded prognosis. HISTORY OF PRESENT ILLNESS: This is a 46-year-old gentleman with a past medical history of multiple medical problems was admitted with abdominal features of acute pancreatitis, treated symptomatically, improved significantly. Patient also vomiting. Recommend Gastroenterology consultation, possible EGD. On exam, vitals are stable. CARDIOVASCULAR SYSTEM: S1, S2, muffled. ABDOMEN: Soft, nontender, no mass palpable. NERVOUS SYSTEM: No focal deficits. Discharge advice: 1. Diet is cardiac. 2. Activity limited until followup. 3. Follow up with Dr. Barrett in 2 to 3 days. 4. Follow up with Dr. Mendoza as advised. Medications are: 1. Abilify 2 mg p.o. daily. 2. Cymbalta 30 mg daily. 3. Remeron 45 mg q.h.s. 4. Multivitamin 1 p.o. daily. 5. Habitrol 14 daily. 6. Zantac 150 mg q.h.s. 7. Scopolamine 1.5 patch. 8. Klonopin 0.5 mg t.i.d. Once again, the patient will be discharged in a stable condition with guarded prognosis.
== END 2017-01-09 13:30 | disposition home or self-care (01) ==
LOC: SUPCPDRO 09:47 → EC 09:47 → 5MS5E 13:33
PROVIDERS: ADMIT Hospitalist; ATTEND Hospitalist
DX: R11.2 Nausea with vomiting, unspecified (principal); R10.13 Epigastric pain; R65.10 Systemic inflammatory response syndrome (SIRS) of non-infectious origin without acute organ dysfunction; R73.9 Hyperglycemia, unspecified; F17.210 Nicotine dependence, cigarettes, uncomplicated; E78.00 Pure hypercholesterolemia, unspecified; D72.829 Elevated white blood cell count, unspecified; G40.909 Epilepsy, unspecified, not intractable, without status epilepticus; K21.9 Gastro-esophageal reflux disease without esophagitis; I34.1 Nonrheumatic mitral (valve) prolapse; Z86.14 Personal history of Methicillin resistant Staphylococcus aureus infection; F90.9 Attention-deficit hyperactivity disorder, unspecified type; F41.0 Panic disorder [episodic paroxysmal anxiety]; F32.9 Major depressive disorder, single episode, unspecified; Z79.899 Other long term (current) drug therapy; Z88.8 Allergy status to other drugs, medicaments and biological substances; Z91.5 Personal history of self-harm; Z80.42 Family history of malignant neoplasm of prostate; Z80.1 Family history of malignant neoplasm of trachea, bronchus and lung; Z80.7 Family history of other malignant neoplasms of lymphoid, hematopoietic and related tissues; Z87.19 Personal history of other diseases of the digestive system
CPT/HCPCS: 96361 ×5; 96375 ×6; 96376 ×4; 96374; 99285; 36415; 93005; 80061; 80053 ×4; 82150 ×4; 83690 ×4; 83735; 85025 ×4; 81003; 87040; 82787; 86038; 80306; 80320; 87086; 71010; 76705; 74176; G0378 ×4; S4990 ×3; J2060; J2270; J2765; J2405 ×3; J1170; C9113 ×4

== ENCOUNTER 2017-03-28 14:08 | Inpatient (IN) | payer MEDICARE, MEDICAID ==
--- NOTE | 2017-03-28 14:43 | ED ---
General Adult HPI - General Chief complaint: Psychiatric Symptoms Stated complaint: Petition Time Seen by Provider: 03/28/17 14:15 Source: police, RN notes reviewed Mode of arrival: ambulatory Limitations: no limitations - History of Present Illness Initial comments: This is a 46-year-old male who presents emergency department with past medical history significant for anxiety and depression. Patient has been petition because it is believed he is not taking care of himself he is becoming more paranoid not answering the door even for the police. According to the petition he is not eating or showering. Patient denies all this. Patient states he is eating and showering and taking his medicines on a regular basis. Patient denies being suicidal or homicidal. Patient states he has no physical complaints today. Patient does not want to be here but his made to come by the police. Patient denies any alcohol or drug use. - Related Data Home Medications Medication Instructions Recorded Confirmed Ranitidine HCl [Zantac] 150 mg PO HS 09/09/16 03/28/17 ARIPiprazole [Abilify] 2 mg PO DAILY 01/06/17 03/28/17 DULoxetine HCL [Cymbalta] 90 mg PO DAILY 01/06/17 03/28/17 Mirtazapine [Remeron] 45 mg PO HS 03/28/17 03/28/17 Multivitamins, Thera [Multivitamin 1 tab PO DAILY 03/28/17 03/28/17 (formulary)] Previous Rx's Medication Instructions Recorded clonazePAM [KlonoPIN] 0.5 mg PO TID #20 tab 03/31/16 Allergies Allergy/AdvReac Type Severity Reaction Status Date / Time diphenhydramine HCl AdvReac Hallucinati Verified 03/28/17 14:18 [From Benadryl] ons Review of Systems ROS Statement: Those systems with pertinent positive or pertinent negative responses have been documented in the HPI. ROS Other: All systems not noted in ROS Statement are negative. Past Medical History Past Medical History: GERD/Reflux, Seizure Disorder Additional Past Medical History / Comment(s): mitral valve prolapse, last seizure 1999, L inguinal hernia, pancreatitis in 2011, generalized pain unknown cause but pt believes due to arthritis and fibromyalgia-not yet diagnosed. History of Any Multi-Drug Resistant Organisms: MRSA Date of last positivie culture/infection: 11/18/15 MDRO Source:: HEAD Past Surgical History: Orthopedic Surgery Additional Past Surgical History / Comment(s): left humerus ORIF with pinning since removed, lanced lymph nodes Past Anesthesia/Blood Transfusion Reactions: No Reported Reaction Past Psychological History: ADD/ADHD, Anxiety, Depression, Panic Disorder Smoking Status: Current every day smoker Past Alcohol Use History: None Reported Past Drug Use History: Marijuana - Past Family History Father Family Medical History: Cancer Additional Family Medical History / Comment(s): from Hodgkins lymphoma. He also had prostate cancer. He at 60yrs. Mother Family Medical History: Cancer Additional Family Medical History / Comment(s): at age 57 from lung cancer. She was a smoker. Sister(s) History Unknown: Yes Additional Family Medical History / Comment(s): One sister with no major medical problems. General Exam - General Exam Comments Initial Comments: GENERAL: Patient is well-developed and well-nourished. Patient is nontoxic and well- hydrated and is in no acute distress. ENT: Neck is soft and supple. No significant lymphadenopathy is noted. Oropharynx is clear. Moist mucous membranes. Neck has full range of motion without eliciting any pain. EYES: The sclera were anicteric and conjunctiva were pink and moist. Extraocular movements were intact and pupils were equal round and reactive to light. Eyelids were unremarkable. PULMONARY: Unlabored respirations. Good breath sounds bilaterally. No audible rales rhonchi or wheezing was noted. CARDIOVASCULAR: There is a regular rate and rhythm without any murmurs gallops or rubs. ABDOMEN: Soft and nontender with normal bowel sounds. No palpable organomegaly was noted. There is no palpable pulsatile mass. SKIN: Skin is clear with no lesions or rashes and otherwise unremarkable. NEUROLOGIC: Patient is alert and oriented x3. Cranial nerves II through XII are grossly intact. Motor and sensory are also intact. Normal speech, volume and content. Symmetrical smile. MUSCULOSKELETAL: Normal extremities with adequate strength and full range of motion. LYMPHATICS: No significant lymphadenopathy is noted PSYCHIATRIC: Normal psychiatric evaluation. Normal interpersonal interactions appears functionally intact in deals appropriately with others. No signs of depression. Patient is mildly anxious Limitations: no limitations Course Vital Signs 03/28/17 14:15 Temperature 97.8 F Pulse Rate 65 Respiratory 18 Rate Blood Pressure 134/77 O2 Sat by Pulse 98 Oximetry Medical Decision Making - Medical Decision Making I filled out a clinical certification on the patient. - Lab Data Lab Results 03/28/17 Range/Units 15:44 Urine Opiates Screen Not Detected (NotDetected) Ur Oxycodone Screen Not Detected (NotDetected) Urine Methadone Screen Not Detected (NotDetected) Ur Propoxyphene Screen Not Detected (NotDetected) Ur Barbiturates Screen Not Detected (NotDetected) U Tricyclic Antidepress Not Detected (NotDetected) Ur Phencyclidine Scrn Not Detected (NotDetected) Ur Amphetamines Screen Not Detected (NotDetected) U Methamphetamines Scrn Not Detected (NotDetected) U Benzodiazepines Scrn Not Detected (NotDetected) Urine Cocaine Screen Not Detected (NotDetected) U Marijuana (THC) Screen Detected H (NotDetected) Disposition Clinical Impression: Psychosis Disposition: ADMITTED IP TO THIS HOSP Referrals: Maryan Mcfarland MD [Primary Care Provider] - 1-2 days Time of Disposition: 17:16
[2017-03-28] MEDS ORDERED: MAGNESIUM HYDROXIDE 2,400 MG/10 ML CUP PO PRN (18:27)
[2017-03-28] MEDS ORDERED: ZIPRASIDONE 20 MG VIAL IM PRN (18:27)
[2017-03-28] MEDS: MAG HYDROX/AL HYDROX/SIMETH 30 ML CUP PO PRN (18:44)
[2017-03-28] MEDS: ACETAMINOPHEN TAB 325 MG TAB PO PRN (18:44)
[2017-03-28 18:45] LABS: Appearance,Urine Clear (Clear); Bilirubin,Urine Negative (Negative); Glucose,Urine (UA) Negative (Negative); Ketones,Urine Negative (Negative); Leukocyte Esterase,Urine Negative (Negative); Nitrite,Urine Negative (Negative); Protein,Urine Negative (Negative); Specific Gravity,Urine 1.008 (1.001-1.035); UA Billing (MACRO vs. MICRO) CHEM; Urobilinogen,Urine <2.0 mg/dL (<2.0)
[2017-03-28] MEDS ORDERED: FAMOTIDINE 20 MG TAB PO SCH (21:00)
[2017-03-28] MEDS: MIRTAZAPINE 45 MG TABLET PO SCH (21:26)
[2017-03-28] MEDS: clonazePAM 0.5 MG TAB PO SCH (21:26)
[2017-03-29 08:46] LABS: Basophils # (A) 0.1 k/uL (0-0.2); Basophils % (A) 1 %; CH 33.3; CHCM 34.8; Eosinophils # (A) 0.2 k/uL (0-0.7); Eosinophils % (A) 3 %; HCT 45.6 % (39.0-53.0); HDW 2.58; HGB 15.5 gm/dL (13.0-17.5); Luc # (Auto) 0.21; Luc % (Auto) 3; Lymphocytes % (A) 41 %; MCH 32.5 pg (25.0-35.0); MCHC 33.9 g/dL (31.0-37.0); Mean Platelet Volume 6.9; Monocytes # (A) 0.6 k/uL (0-1.0); Monocytes % (A) 8 %; Neutrophils # (A) 3.3 k/uL (1.3-7.7); Neutrophils % (A) 44 %; RBC 4.75 m/uL (4.30-5.90); RDW 14.3 % (11.5-15.5); WBC 7.3 k/uL (3.8-10.6); WBC (Perox) 7.41
[2017-03-29] MEDS ORDERED: DULoxetine HCL 30 MG CAPSULE.DR PO SCH (09:00)
[2017-03-29] MEDS ORDERED: ARIPiprazole 2 MG TAB PO SCH (09:00)
[2017-03-29] MEDS: clonazePAM 0.5 MG TAB PO SCH ×3 (10:09→21:39)
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
[2017-03-29 10:17] LABS: Anion Gap 9 mmol/L; Calcium 9.9 mg/dL (8.4-10.2); Carbon Dioxide 21 mmol/L (22-30); Chloride 112 mmol/L (98-107); Glucose 88 mg/dL (74-99); Non-African American GFR(MDRD) >60 (>60 ml/min/1.73 sqM); Sodium 142 mmol/L (137-145); Total Bilirubin 0.7 mg/dL (0.2-1.3); Total Protein 6.9 g/dL (6.3-8.2)
[2017-03-29 10:21] LABS: ALT 55 U/L (21-72); AST 38 U/L (17-59); Alkaline Phosphatase 51 U/L (38-126); Blood Urea Nitrogen 16 mg/dL (9-20)
[2017-03-29 11:51] VITALS: BMI 18.3
[2017-03-29] MEDS: MULTIVITAMINS, THERA 1 EACH TAB PO SCH ×2 (13:00→13:36)
--- NOTE | 2017-03-29 15:49 | P.CONS ---
History of Present Illness - Reason for Consult Consult date: 03/29/17 Advice regarding seizure disorder and other medical issues - History of Present Illness This 46-year-old gentleman with a past medical history of anxiety depression panic disorder history seizure disorder history of MRSA being followed by Dr. Mcnair in the preceding also had a recent history of pancreatitis. The patient was admitted to psych floor for inpatient psych evaluation. The patient's BMI is only 17.8. No chest pain, palptiations shortness of breath, nausea vomiting diarrhea, hematochezia or michael. No headaches, loss of consciousness or seizures. No fever rigors or weightloss. No dysuria or urinary retention. Review of Systems REVIEW OF SYSTEMS: ENT: No diminished vision or hearing. CARDIOVASCULAR: Mentioned earlier. RESPIRATORY: As mentioned earlier. GI: No nauscea, vomiting or diarrhea. : No dysuria or retention. NERVOUS SYSTEM: No numbness or weakness. ALLERGY/IMMUNOLOGY: No asthma or hay fever. MUSCULOSKELETAL: As mentioned earlier. HEMATOLOGY/ONCOLOGY: No history of anemia. ENDOCRINE: No history of diabetes or hypothyroidism. CONSTITUTIONAL: As mentioned earlier. DERMATOLOGY: Negative. PSYCHIATRY: Mentioned earlier. RHEUMATOLOGY: Negative. Past Medical History Past Medical History: GERD/Reflux, Seizure Disorder Additional Past Medical History / Comment(s): mitral valve prolapse, last seizure 1999, L inguinal hernia, pancreatitis in 2011, generalized pain unknown cause but pt believes due to arthritis and fibromyalgia-not yet diagnosed. History of Any Multi-Drug Resistant Organisms: MRSA Year Discovered:: 11/18/15 MDRO Source:: HEAD Past Surgical History: Orthopedic Surgery Additional Past Surgical History / Comment(s): left humerus ORIF with pinning since removed, lanced lymph nodes Past Anesthesia/Blood Transfusion Reactions: No Reported Reaction Smoking Status: Current some day smoker - Past Family History Father Family Medical History: Cancer Additional Family Medical History / Comment(s): from Hodgkins lymphoma. He also had prostate cancer. He at 60yrs. Mother Family Medical History: Cancer Additional Family Medical History / Comment(s): at age 57 from lung cancer. She was a smoker. Sister(s) History Unknown: Yes Additional Family Medical History / Comment(s): One sister with no major medical problems. Sister is payee for patient Medications and Allergies Home Medications Medication Instructions Recorded Confirmed Type Ranitidine HCl [Zantac] 150 mg PO HS 09/09/16 03/28/17 History ARIPiprazole [Abilify] 2 mg PO DAILY 01/06/17 03/28/17 History DULoxetine HCL [Cymbalta] 90 mg PO DAILY 01/06/17 03/28/17 History Mirtazapine [Remeron] 45 mg PO HS 03/28/17 03/28/17 History Multivitamins, Thera [Multivitamin 1 tab PO DAILY 03/28/17 03/28/17 History (formulary)] Allergies Allergy/AdvReac Type Severity Reaction Status Date / Time diphenhydramine HCl AdvReac Hallucinati Verified 03/29/17 11:12 [From Benadryl] ons Physical Exam Vitals: Vital Signs Temp Pulse Pulse Resp BP BP Pulse Ox 03/29/17 11:45 97.3 F L 62 15 121/68 99 03/29/17 06:48 97.6 F 50 L 16 92/53 03/28/17 21:28 75 110/62 03/28/17 18:34 97.3 F L 62 14 121/68 99 03/28/17 17:29 97.8 F 62 18 154/70 97 Intake and Output 03/29/17 03/29/17 03/29/17 06:59 14:59 22:59 Other: Weight 56.3 kg Patient Weight 03/30/17 06:59 Weight 56.3 kg On exam, alert and oriented x3. Slightly emaciated body mass index 17.8 HEENT: Conjunctivae normal. eyes normal. NECK: No JVD. No thyroid enlargement. No LNs CARDIOVASCULAR: S1, S2 muffled. No murmur RESPIRATION: Breath sounds diminished in the bases. No rhonchi or crackles. No bronchial breathing. ABDOMEN: Soft, nontender . No guarding. no masses palpable. No ascites, No hepatosplenomegaly.Bowel sounds heard. LEGS: No edema. no swelling NERVOUS SYSTEM: Cranial N 2-12 grossly normal. Moves all 4 limbs. No focal deficits. No sensory deficit. No signs of cerebellar dysfucntion. Skin: no ulcer no rash Joints: No active swelling. No inflammation. Lymphatic system. No LN neck axilla or groin. Results CBC & Chem 7: 03/29/17 08:27 03/29/17 08:27 Labs: Abnormal Lab Results - Last 24 Hours (Table) 03/28/17 03/29/17 Range/Units 15:44 08:27 Chloride 112 H (98-107) mmol/L Carbon Dioxide 21 L (22-30) mmol/L U Marijuana (THC) Screen Detected H (NotDetected) Assessment and Plan Plan: Assessment 1. Anxiety depression for psych evaluation 2. Seizure disorder 3. GERD 5. History of pancreatitis 6. Mild to moderate protein calorie malnutrition with a BMI of 17.8 Plan I would recommend to continue the current medications. The baseline labs are acceptable. I also recommend supplemental ensure or boost. Recommended close outpatient follow-up with primary physician outpatient setting. Thank you for letting us participate in the care of this patient. We will be happy to review if any other abnormality.
[2017-03-29] MEDS: MIRTAZAPINE 45 MG TABLET PO SCH (21:39)
[2017-03-29] MEDS: FAMOTIDINE 20 MG TAB PO SCH (21:39)
[2017-03-30] MEDS: MULTIVITAMINS, THERA 1 EACH TAB PO SCH (09:00)
[2017-03-30] MEDS: clonazePAM 0.5 MG TAB PO SCH ×2 (09:01→20:23)
[2017-03-30] MEDS: DULoxetine HCL 30 MG CAPSULE.DR PO SCH (09:01)
[2017-03-30] MEDS: ARIPiprazole 5 MG TAB PO SCH (09:01)
[2017-03-30] MEDS: FAMOTIDINE 20 MG TAB PO SCH ×2 (09:01→20:24)
[2017-03-30] MEDS: ACETAMINOPHEN TAB 325 MG TAB PO PRN (09:02)
[2017-03-30] MEDS: OLANZapine 5 MG TAB PO PRN (11:55)
--- NOTE | 2017-03-30 12:02 | P.PN ---
Progress Note - Text INTERVERAL HISTORY: Patient discussed at treatment team meeting, review of record, met with patient Staff reports that patient was treated for bedbugs due to the report that his apartment has them. Patient has had 11 admissions here since 2013 Patient was lying in bed he followed me to the library. Patient reports that he was brought here on a petition, states he doesn't know why they did this to him. Asked him about the number of admissions that he has had 7 within the last 2 years and he identifies that ADHD is his primary problem. He also states that bedbugs are a problem. Patient states that people always wanted try to say he psychotic but he is not. Asked him if people will tell him that he has different ideas or odd beliefs, says that he doesn't have a normal way of conversing that he has to think about what he is going to say and then people roll their eyes, that they are frustrated with his poor conversation style. Patient states that he spends his time playing video games and listening to music. 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 No friends, poor relationship with his sister who lives in the area. Parents are . Patient has never and has no children. Patient became irritable when asked about his weight/appetite, patient also says that he has a voice that bothers people so that if he gets too loud they think he's angry. He raised his voice to show how it would be. Patient became quite irritable when I informed him that I would be reducing the Klonopin to a twice a day dosing rather than a 3 times a day dosing and that I would also reduce it tomorrow. Patient's states that I mean because he is going to sweat it out. We discussed the problems with medications that are addicting he states he wished she had never been put on it when he was 34. MENTAL STATUS EXAM:Patient alert and oriented 3, good eye contact, poorly groomed in hospital attire. Speech normal volume, rate and production. Coherent, logical and goal directed thought process. No ALEX, no FOI. No TB/TW/ TI Denied auditory and visual hallucinations. Denied paranoid ideation, delusions or IOR. Memory grossly intact Cognition average Mood irritable , affect constricted, congruent with mood. Denies suicidal ideation, denies homicidal ideation. Insight limited; Judgment grossly intact for treatment purposes Assessment: Unspecified mood disorder Cannabis use disorder severe R/O Schizoid vs Schizophrenia PLAN: Continue inpatient psychiatric care for diagnostic clarification/treatment. Agree with Dr. Carvajal his assessment that he has enough insight and understanding to change from involuntary to voluntary admission. Use clonazepam to 0.5 mg twice a day, reduce 0.25 mg twice a day tomorrow Vistaril 25 mg every 6 hours when necessary anxiety Increase Abilify 5 mg daily for mood/irritability Continue Cymbalta and Remeron Milieu therapy
[2017-03-30] MEDS: MAG HYDROX/AL HYDROX/SIMETH 30 ML CUP PO PRN (13:15)
[2017-03-30] MEDS: DULoxetine HCL 60 MG CAPSULE.DR PO SCH (20:23)
[2017-03-30] MEDS: MIRTAZAPINE 45 MG TABLET PO SCH (20:24)
[2017-03-31] MEDS: ACETAMINOPHEN TAB 325 MG TAB PO PRN ×2 (04:56→12:28)
[2017-03-31] MEDS: OLANZapine 5 MG TAB PO PRN ×3 (04:56→21:31)
[2017-03-31] MEDS: ARIPiprazole 5 MG TAB PO SCH (08:29)
[2017-03-31] MEDS: FAMOTIDINE 20 MG TAB PO SCH ×2 (08:29→21:22)
[2017-03-31] MEDS: MULTIVITAMINS, THERA 1 EACH TAB PO SCH (08:29)
[2017-03-31] MEDS: DULoxetine HCL 30 MG CAPSULE.DR PO SCH (08:30)
[2017-03-31] MEDS: clonazePAM 0.5 MG TAB PO SCH ×2 (08:37→21:28)
--- NOTE | 2017-03-31 12:51 | P.PN ---
Progress Note - Text INTERVERAL HISTORY: Patient discussed at treatment team meeting, review of record, met with patient Staff reports that patient does not attend groups. Patient told me that these groups were Ntractive and he didn't need to go. Today patient was in the hallway greeted me and came to my office. Patient reports that he is doing okay no problems with taking Abilify he is also asking for Zyprexa as a when necessary which we have for him. He has no complaints about the reduction in the Klonopin. He did tell nursing staff that he was unhappy with his doctor for reducing it and stopping it. He asked if I was going to try to keep him here, I told him that I could not legally keep him here past to 72 hours, he then asked if I was going to force an injection on him and I told him that I could not but that I recommended it. He declines. He states that he will take the Abilify in a pill form. Patient denies suicidal ideation. MENTAL STATUS EXAM:Patient alert and oriented 3, good eye contact, thin bearded long hair in a ponytail, fair groomed in hospital attire. Speech normal volume, rate and production. Coherent, logical and goal directed thought process. No ALEX, no FOI. No TB/TW/ TI Denied auditory and visual hallucinations. Denied paranoid ideation, delusions or IOR. Memory grossly intact Cognition average Mood neutral , affect full range, decreased intensity congruent with mood. Denies suicidal ideation, denies homicidal ideation. Insight limited; Judgment grossly intact for treatment purposes Assessment: Unspecified mood disorder Cannabis use disorder severe R/O Schizoid vs Schizophrenia PLAN: Continue inpatient psychiatric care for diagnostic clarification/treatment. Agree with Dr. Carvajal his assessment that he has enough insight and understanding to change from involuntary to voluntary admission. Use clonazepam 0.25 mg twice a day today reduce to .25 tomorrow Zyprexa PRN Increase Abilify 10 mg daily for mood/irritability Continue Cymbalta and Remeron Milieu therapy
[2017-03-31] MEDS: MIRTAZAPINE 45 MG TABLET PO SCH (21:21)
[2017-03-31] MEDS: DULoxetine HCL 60 MG CAPSULE.DR PO SCH (21:45)
[2017-04-01] MEDS: MAG HYDROX/AL HYDROX/SIMETH 30 ML CUP PO PRN ×2 (00:41→16:36)
[2017-04-01] MEDS ORDERED: WATER FOR INJECTION, STERILE 10 ML IV ONE (01:51)
[2017-04-01] MEDS ORDERED: ZIPRASIDONE 20 MG VIAL IM ONE (01:51)
[2017-04-01 05:57] VITALS: TEMP 98.1
[2017-04-01] MEDS: DULoxetine HCL 30 MG CAPSULE.DR PO SCH (08:50)
[2017-04-01] MEDS: FAMOTIDINE 20 MG TAB PO SCH ×2 (08:50→21:16)
[2017-04-01] MEDS: clonazePAM 0.5 MG TAB PO SCH ×2 (08:50→08:52)
[2017-04-01] MEDS ORDERED: ARIPiprazole 10 MG TAB PO SCH (09:00)
--- NOTE | 2017-04-01 09:31 | P.PN ---
Progress Note - Text INTERVERAL HISTORY: Patient discussed at treatment team meeting, review of record, met with patient Staff reports that patient does not attend groups. Patient was not at the 9:30 group this morning so we met after I paged him. Patient states "you remember that I said these groups were [facility] didn't you" Patient reports that he did have some difficulty in sleep last night he was given a Geodon IM that he says helped a little bit about 2 hours later. We discussed the fact that in tapering him off of the benzodiazepines that because he signed AMA he forced the reduction to be a bit faster than I would've liked but that it was still safe. We discussed the possibility of him revoking the AMA and staying longer but he states that he has an appointment with his landlord for them to spray his apartment and he needs to remove some of his belongings. Otherwise patient states he's doing fine we discussed the medication we are using, that both Abilify Zyprexa and Geodon are all from the same class. He is much less irritable more pleasant and appears less paranoid than when he first came in. Patient still agrees that he will take the oral Abilify when he is discharged. Patient denies suicidal ideation. MENTAL STATUS EXAM:Patient alert and oriented 3, good eye contact, thin bearded long hair in a ponytail, fair groomed in hospital attire. Speech normal volume, rate and production. Coherent, logical and goal directed thought process. No ALEX, no FOI. No TB/TW/ TI Denied auditory and visual hallucinations. Denied paranoid ideation, delusions or IOR. Memory grossly intact Cognition average Mood euthymic , affect full range, normal intensity congruent with mood. Denies suicidal ideation, denies homicidal ideation. Insight limited; Judgment grossly intact for treatment purposes Assessment: Unspecified mood disorder Cannabis use disorder severe R/O Schizoid vs Schizophrenia PLAN: Continue inpatient psychiatric care for diagnostic clarification/treatment. Agree with Dr. Carvajal his assessment that he has enough insight and understanding to change from involuntary to voluntary admission. Reduce clonazepam 0.25 mg today and tomorrow. Monitor blood pressure and pulse Zyprexa PRN Increase Abilify 15 mg daily for mood/irritability tomorrow morning Increase Cymbalta 60 mg twice a day Continue Remeron Add Benadryl 50 mg at bedtime when necessary insomnia Milieu therapy
[2017-04-01] MEDS ORDERED: diphenhydrAMINE 25 MG CAP PO PRN (09:48)
[2017-04-01] MEDS ORDERED: DULoxetine HCL 30 MG CAPSULE.DR PO ONE (10:00)
[2017-04-01] MEDS: MULTIVITAMINS, THERA 1 EACH TAB PO SCH (12:25)
[2017-04-01] MEDS: ACETAMINOPHEN TAB 325 MG TAB PO PRN (17:41)
[2017-04-01] MEDS ORDERED: clonazePAM 0.5 MG TAB PO SCH (21:00)
[2017-04-01] MEDS: MIRTAZAPINE 45 MG TABLET PO SCH (21:16)
[2017-04-01] MEDS: DULoxetine HCL 60 MG CAPSULE.DR PO SCH (21:16)
[2017-04-02 06:30] VITALS: BP 136/77; PULSE 67; RESP 14
--- NOTE | 2017-04-02 08:41 | P.DS ---
Providers Date of admission: 03/28/17 17:22 Expected date of discharge: 04/02/17 Attending physician: Zoila Guzman MD Consults: 03/28/17 18:27 Consult Physician Routine Consulting Provider: Js Ramirez Consult Reason/Comments: Follow up H & P Do you want consulting provider notified?: Yes Primary care physician: [facility] Course: BRIEF ADMISSION HISTORY: "I am here because of wrong assumption from [facility] worker " The patient has been admitted to psychiatric floor after he was brought to ED based on a petition by [facility] and brick picker order to bring the patient to ED. According to report from admission team that [facility] reported patient has not been showing for his follow up appointments and he was not taking his medications. Also, it was reported that patient refused to open his door to police after [facility] obtained a brick picker order on 03/16. According to report that they found the patient not showering and he was extremely paranoid. The patient has been found at his house with bed bugs allover the house. Nurses at the unit report that they have seen bed bugs at the patient properties. Protocol for bed bugs has been implemented, and patient has been showered. Patient continued to have itching and scratching his body. Patient denies poor compliance with medication and treatment and minimizes not showing up for follow up appointment with [facility]. He reports that he only missed up one follow up appointment. Patient admitted for not opening his door to the police because he doesn't want to come to the hospital and he is refusing the [facility] suggested treatment plan to be placed on IM anti-psychotic medications. According to the records, patient has started oral Abilify for past 2 months and he is currently 2mg daily dose which has been started by [facility] provider. Today , the patient presented calm, quite, and cooperative. He didn't show any disorganized thoughts or behavior, and he expressed willingness to take oral medication and he continued to refuse plan to start any long acting injectable anti-psychotic. Patient denies depressed mood, feeling hopeless, worthless, or helpless. Patient admitted to feel annoyed and frustrated about having bed bugs at his house and he couldn't manage the problem. He reports has some appetite problems due to nausea and acid reflux and he had sleep disturbances related to bed bugs. But he denies sleep, appetite, or concentration disturbances related to depression. Patient also denies lack of interest, or poor energy. Patient reported no suicidal thoughts, plans or intentions. Patient admitted to have history of anxiety, and reports current symptoms or bouts of severe anxiety, and infrequent panic attacks. He denies any history of compulsions, obsessions, nightmares, flashbacks, hyper vigilance, avoidance behavior, or any specific phobias. Patient denied any current symptoms of manic symptoms, including episodes of: erratic uninhibited behavior, feeling grandiose or inflated self-esteem, flight of ideas, elated mood, or absence need to sleep due to increased goal directed activities. Patient denies any auditory/ visual / olfactory hallucinations. Patient denies paranoid ideation. No bizarre disorganized thoughts or behavior noticed, and no delusions could be elicited. Patient explained that he get annoyed by people telling him that he is "skinny" and he reports has been told by other physicians that he has muscle loss for which he has to follow up with further testing. HOSPITAL COURSE: Patient was irritable, paranoid,disheveled refused groups, remaining in his room. When job specification writer took over care patient continued to be irritable, paranoid and refused Abilify long-acting Depo. When patient was informed that his clonazepam would be reduced and discontinued he became angry and argumentative and signed AMA. He was provided with Zyprexa Zydis PRN to deal with anxiety with taper of clonazepam. His Abilify was increased daily. After 2 days of Zyprexa approximately 10 mg a day his mood was significantly improved pleasant and cooperative. He was again offered Abilify long-acting he refused. He insists that he will take his medicine that he is never been noncompliant. At 72 hours he was improved and there was no clinical indication to keep him longer, he was not a threat to himself or to others. He did not appear to have the same paranoid ideation as when he was first admitted. He had slept well w/o additional medications. He stated he was now glad to be getting off of clonazepam. He was asked to revoke his AMA to continue the benzo taper, he refused due to having an appt to have his apartment fumigated. ADMISSION DIAGNOSES: Unspecified mood disorder Cannabis use disorder severe Unspecified anxiety Acid Reflux R/O Schizophrenia DISCHARGE DIAGNOSES: Mood disorder, unspecified Psychosis by history R/O Schizoaffective DO, Bipolar type. R/O Schizoid Cannabis use disorder, severe Plan AMA discharge today Continue Abilify 15mg QAM Continue Cymbalta 60mg BID Continue Remeron 45mg QHS Taper Klonopin 0.25mg QD for 3 days then stop. Benzo class is not indicated. CM to follow. Pertinent Studies: none Procedures: none Patient Condition at Discharge: Stable Plan - Discharge Summary New Discharge Prescriptions: New ARIPiprazole [Abilify] 15 mg PO DAILY #30 tab clonazePAM [KlonoPIN] 0.25 mg PO HS #3 tab DULoxetine HCL [Cymbalta] 60 mg PO DAILY #30 cap DULoxetine HCL [Cymbalta] 60 mg PO HS #30 cap Continue Ranitidine HCl [Zantac] 150 mg PO HS Multivitamins, Thera [Multivitamin (formulary)] 1 tab PO DAILY Mirtazapine [Remeron] 45 mg PO HS #30 Discontinued clonazePAM [KlonoPIN] 0.5 mg PO TID #20 tab DULoxetine HCL [Cymbalta] 90 mg PO DAILY ARIPiprazole [Abilify] 2 mg PO DAILY Discharge Medication List Ranitidine HCl [Zantac] 150 mg PO HS 09/09/16 [History] Multivitamins, Thera [Multivitamin (formulary)] 1 tab PO DAILY 03/28/17 [History ] ARIPiprazole [Abilify] 15 mg PO DAILY #30 tab 04/02/17 [Rx] DULoxetine HCL [Cymbalta] 60 mg PO DAILY #30 cap 04/02/17 [Rx] DULoxetine HCL [Cymbalta] 60 mg PO HS #30 cap 04/02/17 [Rx] Mirtazapine [Remeron] 45 mg PO HS #30 04/02/17 [Rx] clonazePAM [KlonoPIN] 0.25 mg PO HS #3 tab 04/02/17 [Rx] Follow up Appointment(s)/Referral(s): [facility] [Outside] - 04/03/17 1:00 pm (Brandon ) Maryan Mcfarland MD [Primary Care Provider] - 1-2 days Patient Instructions/Handouts: How to Stop Smoking (DC), Suicide Prevention for Adults (DC) Activity/Diet/Wound Care/Special Instructions: No alcohol or street drugs, activity as tolerated, and diet as tolerated. Remove all firearms from the home. Follow up with outpatient provider as set up at time of discharge, follow up with your primary care doctor in 1-2 days. Call the crisis line or [phone] if having thoughts of hurting yourself or others Discharge Disposition: Left Against Medical Advice
[2017-04-02] MEDS ORDERED: ARIPiprazole 15 MG TAB PO SCH (09:00)
[2017-04-02] MEDS ORDERED: DULoxetine HCL 60 MG CAPSULE.DR PO SCH (09:00)
[2017-04-02] MEDS: FAMOTIDINE 20 MG TAB PO SCH (09:05)
[2017-04-02] MEDS: ACETAMINOPHEN TAB 325 MG TAB PO PRN (09:28)
[2017-04-02] MEDS: MULTIVITAMINS, THERA 1 EACH TAB PO SCH (12:08)
[2017-04-02] MEDS: MAG HYDROX/AL HYDROX/SIMETH 30 ML CUP PO PRN (13:08)
== END 2017-04-02 13:45 | disposition left against medical advice (07) | DRG 885 ==
LOC: EC 14:08 → 3MHU 17:22
PROVIDERS: ADMIT Psychiatry & Neurology Addiction Medicine; ATTEND Psychiatry & Neurology Addiction Medicine
DX: F39 Unspecified mood [affective] disorder (principal); E44.0 Moderate protein-calorie malnutrition; Z68.1 Body mass index [BMI] 19.9 or less, adult; F12.90 Cannabis use, unspecified, uncomplicated; F17.200 Nicotine dependence, unspecified, uncomplicated; F41.0 Panic disorder [episodic paroxysmal anxiety]; F60.9 Personality disorder, unspecified; F90.9 Attention-deficit hyperactivity disorder, unspecified type; G40.909 Epilepsy, unspecified, not intractable, without status epilepticus; I34.1 Nonrheumatic mitral (valve) prolapse; K21.9 Gastro-esophageal reflux disease without esophagitis; F41.8 Other specified anxiety disorders; G89.29 Other chronic pain; G47.9 Sleep disorder, unspecified; R11.0 Nausea; Z79.899 Other long term (current) drug therapy; Z88.8 Allergy status to other drugs, medicaments and biological substances; Z86.14 Personal history of Methicillin resistant Staphylococcus aureus infection
CPT/HCPCS: 80053; 80306; 81003; 82075; 84443; 85025; 99285

== ENCOUNTER 2019-02-13 21:58 | Emergency (ER) | payer MEDICARE, OTHER ==
[2019-02-13 22:04] VITALS: RESP 18; TEMP 98.3
--- NOTE | 2019-02-13 22:39 | XR ---
EXAM: XR Chest, 2 Views CLINICAL HISTORY: Pain TECHNIQUE: Frontal and lateral views of the chest. COMPARISON: Chest x-ray dated 01/06/2017 FINDINGS: Lungs: Unremarkable. No consolidation. Pleural space: Unremarkable. No pneumothorax. Heart: Unremarkable. No cardiomegaly. Mediastinum: Unremarkable. Bones/joints: Unremarkable. IMPRESSION: Normal chest x-rays.
[2019-02-13 22:40] LABS: Appearance,Urine Clear (Clear); Bilirubin,Urine Negative (Negative); Blood,Urine Negative (Negative); Color,Urine Light Yellow; Glucose,Urine (UA) Negative (Negative); Ketones,Urine Negative (Negative); Leukocyte Esterase,Urine Negative (Negative); Nitrite,Urine Negative (Negative); PH, Urine 6.5 (5.0-8.0); Protein,Urine Negative (Negative); Specific Gravity,Urine 1.006 (1.001-1.035); Urobilinogen,Urine <2.0 mg/dL (<2.0)
[2019-02-13 22:45] LABS: Basophils % (A) 1 %; Eosinophils # (A) 0.2 k/uL (0-0.7); Eosinophils % (A) 3 %; HCT 42.9 % (39.0-53.0); HGB 13.9 gm/dL (13.0-17.5); Lymphocytes % (A) 27 %; MCHC 32.3 g/dL (31.0-37.0); MCV 95.9 fL (80.0-100.0); Mean Platelet Volume 6.4; Monocytes # (A) 0.3 k/uL (0-1.0); Monocytes % (A) 5 %; Neutrophils # (A) 4.7 k/uL (1.3-7.7); Neutrophils % (A) 63 %; Platelet Count 305 k/uL (150-450); RBC 4.47 m/uL (4.30-5.90); RDW 13.2 % (11.5-15.5); WBC 7.5 k/uL (3.8-10.6)
--- NOTE | 2019-02-13 22:52 | ED ---
General Adult HPI - General Chief complaint: Seizure Stated complaint: Seizure Time Seen by Provider: 02/13/19 22:02 Source: patient, EMS Mode of arrival: EMS Limitations: no limitations - History of Present Illness Initial comments: Dictation was produced using [employer] dictation software. please excuse any grammatical, word or spelling errors. Chief Complaint: 48-year-old male with past medical history of seizures presents with concern for seizure. History of Present Illness: he is a 48-year-old male past with past medical history of seizures. He states he woke up at home and felt confused. Patient believes he had a seizure. He lives by himself. This event was unwitnessed. He states his last seizure was 10 years ago. Patient otherwise has no complaints at this time. He called his sister and told her about it. He was then brought to the emergency department for concerns of seizure. The ROS documented in this emergency department record has been reviewed and confirmed by me. Those systems with pertinent positive or negative responses have been documented in the HPI. All other systems are other negative and/or noncontributory. PHYSICAL EXAM: General Impression: Alert and oriented x3, not in acute distress HEENT: Normocephalic atraumatic, extra-ocular movements intact, pupils equal and reactive to light bilaterally, mucous membranes moist. Cardiovascular: Heart regular rate and rhythm, S1&S2 audible, no murmurs, rubs or gallops Chest: Lungs clear to auscultation bilaterally, no rhonchi, no wheeze, no rales Abdomen: Bowel sounds present, abdomen soft, non-tender, non-distended, no organomegaly Musculoskeletal: Pulses present and equal in all extremities, no peripheral edema Motor: no focal deficits noted Neurological: CN II-XII grossly intact, no focal motor or sensory deficits noted, no rigidity, no hyperreflexia Skin: Intact with no visualized rashes Psych: Normal affect and mood ED course: 48-year-old male with past medical history of seizures presents with concern of having a seizure. He states he woke up on the floor at home confused. Patient has no place at this time. Signs upon arrival shows no acute processes. There is concern that patient had episode of syncope. EKG is benign. Patient does not have any physical exam findings to suggest generalized tonic-clonic seizure. No lateral tongue biting.Laboratory evaluation obtained. CBC, coag panel, metabolic panel, lactic acid level was obtained. No findings to suggest generalized tonic-clonic seizure. Urinalysis is unremarkable. Serum alcohol is negative. Computed tomography scan of the head chest x-ray shows no acute processes. This point highly unlikely that patient's of her tonic-clonic seizure. There is no findings to suggest syncope. Patient does not have any medical problems. Patient is observed in emergency department for several hours with no comp dictating issues. Nonetheless, there is some suspicion that the patient might of had a petit mall seizure or even a seizure as well. This point I would not recommend starting seizure medications. He wouldn't however benefit from outpatient evaluation by neurology. Be discharged. Return Prevacid discussed. Patient understandable agreeable to disposition. EKG interpretation: Ventricular rate 57, sinus bradycardia,. 134, QS 92, QTC 367. No OH prolongation, no QTC prolongation, no ST or T-wave changes noted. Overall, this EKG is unremarkable - Related Data Home Medications Medication Instructions Recorded Confirmed No Known Home Medications 02/13/19 02/13/19 Allergies Allergy/AdvReac Type Severity Reaction Status Date / Time aspirin AdvReac EARS RING Verified 02/13/19 22:30 diphenhydramine HCl AdvReac Hallucinati Verified 02/13/19 22:30 [From Benadryl] ons Review of Systems ROS Statement: Those systems with pertinent positive or pertinent negative responses have been documented in the HPI. ROS Other: All systems not noted in ROS Statement are negative. Past Medical History Past Medical History: GERD/Reflux, Seizure Disorder Additional Past Medical History / Comment(s): mitral valve prolapse, last seizure 1999, L inguinal hernia, pancreatitis in 2011, generalized pain unknown cause but pt believes due to arthritis and fibromyalgia-not yet diagnosed. History of Any Multi-Drug Resistant Organisms: MRSA Date of last positivie culture/infection: 11/18/15 MDRO Source:: HEAD Past Surgical History: Orthopedic Surgery Additional Past Surgical History / Comment(s): left humerus ORIF with pinning since removed, lanced lymph nodes Past Anesthesia/Blood Transfusion Reactions: No Reported Reaction Past Psychological History: ADD/ADHD, Anxiety, Depression, Panic Disorder Smoking Status: Current some day smoker Past Alcohol Use History: None Reported - Past Family History Father Family Medical History: Cancer Additional Family Medical History / Comment(s): from Hodgkins lymphoma. He also had prostate cancer. He at 60yrs. Mother Family Medical History: Cancer Additional Family Medical History / Comment(s): at age 57 from lung cancer. She was a smoker. Sister(s) History Unknown: Yes Additional Family Medical History / Comment(s): One sister with no major medical problems. Sister is payee for patient General Exam Limitations: no limitations Course Vital Signs 02/13/19 02/13/19 22:00 23:43 Temperature 98.3 F Pulse Rate 79 62 Respiratory 18 18 Rate Blood Pressure 145/80 110/63 O2 Sat by Pulse 97 98 Oximetry Medical Decision Making - Lab Data Result diagrams: 02/13/19 22:08 02/13/19 22:08 Lab Results 02/13/19 02/13/19 02/13/19 Range/Units 22:08 22:08 22:08 WBC 7.5 (3.8-10.6) k/uL RBC 4.47 (4.30-5.90) m/uL Hgb 13.9 (13.0-17.5) gm/dL Hct 42.9 (39.0-53.0) % MCV 95.9 (80.0-100.0) fL MCH 31.0 (25.0-35.0) pg MCHC 32.3 (31.0-37.0) g/dL RDW 13.2 (11.5-15.5) % Plt Count 305 (150-450) k/uL Neutrophils % 63 % Lymphocytes % 27 % Monocytes % 5 % Eosinophils % 3 % Basophils % 1 % Neutrophils # 4.7 (1.3-7.7) k/uL Lymphocytes # 2.0 (1.0-4.8) k/uL Monocytes # 0.3 (0-1.0) k/uL Eosinophils # 0.2 (0-0.7) k/uL Basophils # 0.0 (0-0.2) k/uL PT (9.0-12.0) sec INR (<1.2) Sodium 139 (137-145) mmol/L Potassium 4.1 (3.5-5.1) mmol/L Chloride 104 (98-107) mmol/L Carbon Dioxide 26 (22-30) mmol/L Anion Gap 9 mmol/L BUN 13 (9-20) mg/dL Creatinine 0.84 (0.66-1.25) mg/dL Est GFR (CKD-EPI)AfAm >90 (>60 ml/min/1.73 sqM) Est GFR (CKD-EPI)NonAf >90 (>60 ml/min/1.73 sqM) Glucose 133 H (74-99) mg/dL Plasma Lactic Acid Satya 1.5 (0.7-2.0) mmol/L Calcium 9.4 (8.4-10.2) mg/dL Magnesium 2.1 (1.6-2.3) mg/dL Total Bilirubin 0.4 (0.2-1.3) mg/dL AST 21 (17-59) U/L ALT 25 (21-72) U/L Alkaline Phosphatase 62 (38-126) U/L Creatine Kinase 67 (55-170) U/L Troponin I (0.000-0.034) ng/mL Total Protein 6.8 (6.3-8.2) g/dL Albumin 4.2 (3.5-5.0) g/dL Urine Color Urine Appearance (Clear) Urine pH (5.0-8.0) Ur Specific Lebeau (1.001-1.035) Urine Protein (Negative) Urine Glucose (UA) (Negative) Urine Ketones (Negative) Urine Blood (Negative) Urine Nitrite (Negative) Urine Bilirubin (Negative) Urine Urobilinogen (<2.0) mg/dL Ur Leukocyte Esterase (Negative) Serum Alcohol <10 mg/dL 02/13/19 02/13/19 02/13/19 Range/Units 22:08 22:08 22:26 WBC (3.8-10.6) k/uL RBC (4.30-5.90) m/uL Hgb (13.0-17.5) gm/dL Hct (39.0-53.0) % MCV (80.0-100.0) fL MCH (25.0-35.0) pg MCHC (31.0-37.0) g/dL RDW (11.5-15.5) % Plt Count (150-450) k/uL Neutrophils % % Lymphocytes % % Monocytes % % Eosinophils % % Basophils % % Neutrophils # (1.3-7.7) k/uL Lymphocytes # (1.0-4.8) k/uL Monocytes # (0-1.0) k/uL Eosinophils # (0-0.7) k/uL Basophils # (0-0.2) k/uL PT 10.2 (9.0-12.0) sec INR 0.9 (<1.2) Sodium (137-145) mmol/L Potassium (3.5-5.1) mmol/L Chloride (98-107) mmol/L Carbon Dioxide (22-30) mmol/L Anion Gap mmol/L BUN (9-20) mg/dL Creatinine (0.66-1.25) mg/dL Est GFR (CKD-EPI)AfAm (>60 ml/min/1.73 sqM) Est GFR (CKD-EPI)NonAf (>60 ml/min/1.73 sqM) Glucose (74-99) mg/dL Plasma Lactic Acid Satya (0.7-2.0) mmol/L Calcium (8.4-10.2) mg/dL Magnesium (1.6-2.3) mg/dL Total Bilirubin (0.2-1.3) mg/dL AST (17-59) U/L ALT (21-72) U/L Alkaline Phosphatase (38-126) U/L Creatine Kinase (55-170) U/L Troponin I <0.012 (0.000-0.034) ng/mL Total Protein (6.3-8.2) g/dL Albumin (3.5-5.0) g/dL Urine Color Light Yellow Urine Appearance Clear (Clear) Urine pH 6.5 (5.0-8.0) Ur Specific Lebeau 1.006 (1.001-1.035) Urine Protein Negative (Negative) Urine Glucose (UA) Negative (Negative) Urine Ketones Negative (Negative) Urine Blood Negative (Negative) Urine Nitrite Negative (Negative) Urine Bilirubin Negative (Negative) Urine Urobilinogen <2.0 (<2.0) mg/dL Ur Leukocyte Esterase Negative (Negative) Serum Alcohol mg/dL Disposition Clinical Impression: Well adult health check Disposition: HOME SELF-CARE Condition: Good Instructions (If sedation given, give patient instructions): Recurrent Seizures in Adults (ED) Is patient prescribed a controlled substance at d/c from ED?: No Referrals: Gage Penn MD [Medical Doctor] - 1-2 days Time of Disposition: 00:06
[2019-02-13 22:53] LABS: INR 0.9 (<1.2); Prothrombin Time 10.2 sec (9.0-12.0)
[2019-02-13 22:56] LABS: ALT 25 U/L (21-72); AST 21 U/L (17-59); African American GFR (CKD) >90 (>60 ml/min/1.73 sqM); Albumin 4.2 g/dL (3.5-5.0); Alcohol <10 mg/dL; Alkaline Phosphatase 62 U/L (38-126); Anion Gap 9 mmol/L; Blood Urea Nitrogen 13 mg/dL (9-20); Calcium 9.4 mg/dL (8.4-10.2); Carbon Dioxide 26 mmol/L (22-30); Chloride 104 mmol/L (98-107); Creatine Kinase 67 U/L (55-170); Glucose 133 mg/dL (74-99); Magnesium 2.1 mg/dL (1.6-2.3); Potassium 4.1 mmol/L (3.5-5.1); Sodium 139 mmol/L (137-145); Total Bilirubin 0.4 mg/dL (0.2-1.3); Total Protein 6.8 g/dL (6.3-8.2)
--- NOTE | 2019-02-13 23:17 | CT ---
EXAM: CT Head Without Intravenous Contrast CLINICAL HISTORY: Trauma TECHNIQUE: Axial computed tomography images of the head/brain without intravenous contrast. CTDI is 0.085, 0.085, 49.1 mGy and DLP is 1082.4 mGy-cm. This CT exam was performed using one or more of the following dose reduction techniques: automated exposure control, adjustment of the mA and/or kV according to patient size, and/or use of iterative reconstruction technique. COMPARISON: No relevant prior studies available. FINDINGS: Brain: No acute infarct, hemorrhage, mass or edema. No significant white matter disease. Ventricles: Unremarkable. No ventriculomegaly. Bones/joints: No acute osseous abnormality. Soft tissues: Unremarkable. Sinuses: Mild mucosal thickening in the paranasal sinuses. Mastoid air cells: Unremarkable as visualized. No mastoid effusion. IMPRESSION: No acute findings.
[2019-02-13 23:43] VITALS: BP 110/63; PULSE 62
== END 2019-02-14 00:19 | disposition home or self-care (01) ==
LOC: EC 21:58
DX: Z00.00 Encounter for general adult medical examination without abnormal findings (principal); F17.200 Nicotine dependence, unspecified, uncomplicated; Z88.6 Allergy status to analgesic agent; Z88.8 Allergy status to other drugs, medicaments and biological substances
CPT/HCPCS: 36415; 93005; 80053; 82550; 83605; 83735; 84484; 85025; 85610; 81003; 71046; 70450; 99285; G0480; 80320

== ENCOUNTER 2019-07-16 20:05 | Inpatient (IN) | payer MEDICARE, OTHER ==
[2019-07-16] MEDS ORDERED: SODIUM CHLORIDE 0.9% 1,000 ML IV STA (20:18)
[2019-07-16] MEDS ORDERED: KETOROLAC 30 MG/ML 1 ML VIAL IVP STA (20:18)
[2019-07-16 20:31] LABS: Basophils % (A) 0 %; Eosinophils # (A) 0.1 k/uL (0-0.7); Eosinophils % (A) 1 %; HCT 39.1 % (39.0-53.0); HGB 13.8 gm/dL (13.0-17.5); Lymphocytes # (A) 0.7 k/uL (1.0-4.8); Lymphocytes % (A) 7 %; MCH 32.9 pg (25.0-35.0); MCHC 35.2 g/dL (31.0-37.0); MCV 93.5 fL (80.0-100.0); Mean Platelet Volume 5.5; Monocytes # (A) 0.2 k/uL (0-1.0); Monocytes % (A) 2 %; Neutrophils # (A) 9.1 k/uL (1.3-7.7); Neutrophils % (A) 89 %; Platelet Count 310 k/uL (150-450); RBC 4.18 m/uL (4.30-5.90); RDW 12.5 % (11.5-15.5); WBC 10.2 k/uL (3.8-10.6)
[2019-07-16 20:41] LABS: ALT 43 U/L (21-72); AST 27 U/L (17-59); African American GFR (CKD) >90 (>60 ml/min/1.73 sqM); Albumin 4.5 g/dL (3.5-5.0); Alkaline Phosphatase 71 U/L (38-126); Amylase 145 U/L (30-110); Anion Gap 10 mmol/L; Blood Urea Nitrogen 12 mg/dL (9-20); Calcium 9.4 mg/dL (8.4-10.2); Carbon Dioxide 23 mmol/L (22-30); Chloride 106 mmol/L (98-107); Glucose 115 mg/dL (74-99); Non-African American GFR(CKD) >90 (>60 ml/min/1.73 sqM); Potassium 4.1 mmol/L (3.5-5.1); Sodium 139 mmol/L (137-145); Total Bilirubin 0.4 mg/dL (0.2-1.3); Total Protein 7.3 g/dL (6.3-8.2)
--- NOTE | 2019-07-16 20:58 | ED ---
General Adult HPI - General Chief complaint: Abdominal Pain Stated complaint: Abd pain Time Seen by Provider: 07/16/19 20:08 Source: patient, RN notes reviewed Mode of arrival: ambulatory Limitations: no limitations - History of Present Illness Initial comments: 49-year-old male presents to the emergency department for a chief complaint of nausea. Patient states he has had nausea and vomiting all day today. States he has vomited about once every hour. Patient has a history of pancreatitis. States that he believes he is experiencing pancreatitis again. Patient denies any significant abdominal pain. Patient states he is not sure why he gets pa ncreatitis. Denies drinking alcohol. He is unaware of any gallbladder dysfunction. Denies fevers or chills.Patient has no other complaints at this time including shortness of breath, chest pain, abdominal pain, nausea or vomiting, headache, or visual changes. - Related Data Home Medications Medication Instructions Recorded Confirmed Gabapentin [Neurontin] 300 mg PO TID 07/16/19 07/16/19 Ibuprofen [Motrin] 800 mg PO 07/16/19 Allergies Allergy/AdvReac Type Severity Reaction Status Date / Time aspirin AdvReac EARS RING Verified 07/16/19 20:17 diphenhydramine HCl AdvReac Hallucinati Verified 07/16/19 20:17 [From Benadryl] ons Review of Systems ROS Statement: Those systems with pertinent positive or pertinent negative responses have been documented in the HPI. ROS Other: All systems not noted in ROS Statement are negative. Past Medical History Past Medical History: GERD/Reflux, Seizure Disorder Additional Past Medical History / Comment(s): mitral valve prolapse, last sei zure 1999, L inguinal hernia, pancreatitis in 2011, generalized pain unknown cause but pt believes due to arthritis and fibromyalgia-not yet diagnosed. History of Any Multi-Drug Resistant Organisms: MRSA Date of last positivie culture/infection: 11/18/15 MDRO Source:: HEAD Past Surgical History: Orthopedic Surgery Additional Past Surgical History / Comment(s): left humerus ORIF with pinning since removed, lanced lymph nodes Past Anesthesia/Blood Transfusion Reactions: No Reported Reaction Past Psychological History: ADD/ADHD, Anxiety, Depression, Panic Disorder Smoking Status: Former smoker Past Alcohol Use History: None Reported Past Drug Use History: None Reported - Past Family History Father Family Medical History: Cancer Additional Family Medical History / Comment(s): from Hodgkins lymphoma. He also had prostate cancer. He at 60yrs. Mother Family Medical History: Cancer Additional Family Medical History / Comment(s): at age 57 from lung cancer. She was a smoker. Sister(s) History Unknown: Yes Additional Family Medical History / Comment(s): One sister with no major medical problems. Sister is payee for patient General Exam Limitations: no limitations General appearance: alert, in no apparent distress Head exam: Present: atraumatic, normocephalic, normal inspection Eye exam: Present: normal appearance, PERRL, EOMI. Absent: scleral icterus, conjunctival injection, periorbital swelling ENT exam: Present: normal exam, mucous membranes moist Neck exam: Present: normal inspection, full ROM. Absent: tenderness, meningismus, lymphadenopathy Respiratory exam: Present: normal lung sounds bilaterally. Absent: respiratory distress, wheezes, rales, rhonchi, stridor Cardiovascular Exam: Present: regular rate, normal rhythm, normal heart sounds. Absent: systolic murmur, diastolic murmur, rubs, gallop, clicks GI/Abdominal exam: Present: soft, normal bowel sounds. Absent: distended, tenderness (No significant tenderness noted of the abdomen), guarding, rebound, rigid Neurological exam: Present: alert Course Vital Signs 07/16/19 20:14 Temperature 99.0 F Pulse Rate 88 Respiratory 16 Rate Blood Pressure 121/73 O2 Sat by Pulse 97 Oximetry Medical Decision Making - Medical Decision Making 49-year-old male with a past medical history of MVP, pancreatitis presents to the emergency department for nausea vomiting. Patient has been vomiting through the day. Pain is minimal and currently rated at a 2 upon arrival. Vitals are stable. Patient is afebrile. CBC CMP are unremarkable. However lipase is elevated at 1939. Ultrasound was obtained which shows a normal exam, no gallstones or dilated ducts noted. However ultrasound did elicit increased pain and vomiting in patient. He was given additional antiemetics and pain me dication. Patient has had pain radiates in the past, denies excessive alcohol use. Denies gallbladder dysfunction. Patient will be admitted for IV hydration, pain control, and antiemetics. GI will be consulted. - Lab Data Result diagrams: 07/16/19 20:20 07/16/19 20:20 Lab Results 07/16/19 07/16/19 Range/Units 20:20 20:20 WBC 10.2 (3.8-10.6) k/uL RBC 4.18 L (4.30-5.90) m/uL Hgb 13.8 (13.0-17.5) gm/dL Hct 39.1 (39.0-53.0) % MCV 93.5 (80.0-100.0) fL MCH 32.9 (25.0-35.0) pg MCHC 35.2 (31.0-37.0) g/dL RDW 12.5 (11.5-15.5) % Plt Count 310 (150-450) k/uL Neutrophils % 89 % Lymphocytes % 7 % Monocytes % 2 % Eosinophils % 1 % Basophils % 0 % Neutrophils # 9.1 H (1.3-7.7) k/uL Lymphocytes # 0.7 L (1.0-4.8) k/uL Monocytes # 0.2 (0-1.0) k/uL Eosinophils # 0.1 (0-0.7) k/uL Basophils # 0.0 (0-0.2) k/uL Sodium 139 (137-145) mmol/L Potassium 4.1 (3.5-5.1) mmol/L Chloride 106 (98-107) mmol/L Carbon Dioxide 23 (22-30) mmol/L Anion Gap 10 mmol/L BUN 12 (9-20) mg/dL Creatinine 0.67 (0.66-1.25) mg/dL Est GFR (CKD-EPI)AfAm >90 (>60 ml/min/1.73 sqM) Est GFR (CKD-EPI)NonAf >90 (>60 ml/min/1.73 sqM) Glucose 115 H (74-99) mg/dL Calcium 9.4 (8.4-10.2) mg/dL Total Bilirubin 0.4 (0.2-1.3) mg/dL AST 27 (17-59) U/L ALT 43 (21-72) U/L Alkaline Phosphatase 71 (38-126) U/L Total Protein 7.3 (6.3-8.2) g/dL Albumin 4.5 (3.5-5.0) g/dL Amylase 145 H (30-110) U/L Lipase 1939 H (23-300) U/L Disposition Clinical Impression: Pancreatitis Disposition: ADMITTED IP TO THIS HOSP Condition: Fair Is patient prescribed a controlled substance at d/c from ED?: No Referrals: Alexandra Morris MD [Primary Care Provider] - 1-2 days Time of Disposition: 21:59
[2019-07-16] MEDS ORDERED: HYDROmorphone 0.5 MG/0.5 ML SYRINGE IVP STA (21:37)
[2019-07-16] MEDS ORDERED: METOCLOPRAMIDE 5 MG/ML 2 ML VIAL IVP STA (21:37)
--- NOTE | 2019-07-16 21:50 | US ---
EXAMINATION TYPE: US abdomen limited DATE OF EXAM: 07/16/2019 COMPARISON: NONE CLINICAL HISTORY: RUQ. RUQ pain. EXAM MEASUREMENTS: Liver Length: 11.8 cm Gallbladder Wall: .2 cm CBD: .6 cm Right Kidney: 9.3 x 3.7 x 4.0 cm Pancreas: Heterogenous with duct visualized measuring 3 mm. Liver: wnl Gallbladder: wnl Evidence for sonographic Gibbs's sign: No CBD: wnl Right Kidney: wnl IMPRESSION: Normal exam. No gallstones or dilated ducts. No free fluid.
[2019-07-16] MEDS ORDERED: NALOXONE 0.4 MG/ML 1 ML VIAL IV PRN (22:00)
[2019-07-16 22:03] LABS: Appearance,Urine Clear (Clear); Bilirubin,Urine Negative (Negative); Blood,Urine Negative (Negative); Color,Urine Light Yellow; Glucose,Urine (UA) Negative (Negative); Ketones,Urine 2+ (Negative); Leukocyte Esterase,Urine Negative (Negative); Nitrite,Urine Negative (Negative); Protein,Urine Negative (Negative); Specific Gravity,Urine 1.012 (1.001-1.035); Urobilinogen,Urine <2.0 mg/dL (<2.0)
[2019-07-16] MEDS: SODIUM CHLORIDE 0.9% 1,000 ML IV SCH (22:28)
[2019-07-17] MEDS: HYDROmorphone 0.5 MG/0.5 ML SYRINGE IVP PRN ×4 (02:21→21:17)
[2019-07-17] MEDS: ONDANSETRON 4 MG/2 ML VIAL IVP PRN ×2 (02:21→14:04)
[2019-07-17] MEDS: SODIUM CHLORIDE 0.9% 1,000 ML IV SCH ×3 (08:30→21:19)
[2019-07-17 09:52] LABS: HCT 35.6 % (39.0-53.0); HGB 11.9 gm/dL (13.0-17.5); MCH 32.4 pg (25.0-35.0); MCHC 33.6 g/dL (31.0-37.0); MCV 96.7 fL (80.0-100.0); Mean Platelet Volume 6.1; Platelet Count 276 k/uL (150-450); RBC 3.68 m/uL (4.30-5.90); RDW 12.7 % (11.5-15.5)
[2019-07-17 10:18] LABS: African American GFR (CKD) >90 (>60 ml/min/1.73 sqM); Amylase 97 U/L (30-110); Anion Gap 7 mmol/L; Blood Urea Nitrogen 13 mg/dL (9-20); Calcium 8.5 mg/dL (8.4-10.2); Carbon Dioxide 25 mmol/L (22-30); Chloride 108 mmol/L (98-107); Glucose 94 mg/dL (74-99); Non-African American GFR(CKD) >90 (>60 ml/min/1.73 sqM); Potassium 3.6 mmol/L (3.5-5.1); Sodium 140 mmol/L (137-145)
--- NOTE | 2019-07-17 12:57 | CONS ---
CONSULTATION DATE OF SERVICE: July 17, 2019 REQUESTING PHYSICIAN: Dr. Renae Morris. REASON FOR CONSULTATION: Acute pancreatitis. HISTORY OF PRESENT ILLNESS: The patient is a 49 -year-old male with history of anxiety and depression as well as seizure disorder, who was admitted to the hospital with acute onset of abdominal pain associated with nausea, vomiting that started 2 days ago. The pain continued to progressively get worse and came into the emergency room and subsequently noted to have elevated amylase and lipase consistent with acute pancreatitis. The patient states that he had a similar episode about 2 years ago. He denies any alcohol use. He did have ultrasound of the abdomen done that showed no evidence of gallstones. This morning he is feeling better. Abdominal pain has improved. No further episodes of nausea, vomiting. Requesting for diet. PAST MEDICAL HISTORY: Significant for seizure disorder, GERD, Mitral valve prolapse, anxiety, depression, fibromyalgia. PAST SURGICAL HISTORY: Left humerus fracture for which she had surgery done. MEDICATIONS: At home include Prilosec, verapamil, Motrin, Neurontin. ALLERGIES: TO ASPIRIN . SOCIAL HISTORY: No smoking. No alcohol use. FAMILY HISTORY: Unremarkable. REVIEW OF SYSTEMS: Cardiopulmonary: No chest pain, shortness of breath. GENITOURINARY: No dysuria or hematuria. MUSCULOSKELETAL unremarkable. SKIN unremarkable. ENDOCRINE unremarkable. PSYCHIATRIC unremarkable. NEUROLOGY unremarkable. ENT/vision unremarkable. CONSTITUTIONAL: No recent weight loss. No fever, chills, night sweats. PHYSICAL EXAMINATION: Blood pressure 110/66, pulse 59, temperature 98.3. HEENT examination unremarkable Conjunctivae pink. Sclerae anicteric. Oral cavity no lesions. NECK: No JVD or lymph node enlargement. CHEST: Clear to auscultation. HEART: Regular rate and rhythm. ABDOMEN: Soft. Bowel sounds are positive. No organomegaly. EXTREMITIES: No pedal edema. NEUROLOGIC: Alert and oriented x3. No focal deficits. LABS: From the time of admission to the hospital: WBC 8, hemoglobin 11.9, platelets 276, ALT, AST, T-bilirubin and alkaline phosphatase are normal. Amylase is 145, lipase is 1939. Repeat labs: Amylase is 97, the lipase is 348 today. IMPRESSION: The patient was admitted to hospital with acute onset of severe epigastric pain associated with nausea, vomiting of 2 days duration. He notes elevated amylase and lipase consistent with acute pancreatitis, had a similar episode about 2 years ago. Denies any alcohol use. He did have an ultrasound of the gallbladder done that did not show evidence of gallstones or biliary ductal dilation. At this time, etiology of pancreatitis remains unknown and this will be further investigated. RECOMMENDATIONS: 1. Start him on a clear liquid diet. 2. Repeat labs in the morning. 3. We will obtain fasting serum triglycerides and antinuclear antibody. Thank you for this consultation. MMODL / IJN: [id number] /
--- NOTE | 2019-07-17 13:58 | P.HPIM ---
History of Present Illness H&P Date: 07/17/19 Chief Complaint: Abdominal pain nausea and vomiting Mr. Gotti is a 49-year-old male with a past medical history of GERD, seizure disorder, recurrent pancreatitis, osteoarthritis questionable and fibromyalgia, anxiety, depression coming in to the hospital with a chief com plaint of abdominal pain nausea and vomiting. Patient has been throwing up all day yesterday, every hour, so came to the emergency department for further evaluation. He states that whenever he has pancreatitis he feels the same and he thinks it is one of these episodes. Patient denies throwing up any blood. He denies having any constipation or diarrhea. Patient had similar complaints in the past few times. He denies alcohol consumption. He is not sure of having any gallbladder issues. He denies having any other active complaints. Patient denies having any fevers chills or rigors. No chest pain or palpitations. No shortness of breath or cough. No dysuria or hematuria. No headaches, blurring of vision or slurring of speech. No weakness of his extremities. Patient has been complaint with his medications. He follows up with a neurologist on a regular basis. In the ER patient had blood work done showing elevated lipase and amylase. So he has been admitted for further evaluation. Repeat labs from this morning show a lipase of 348 and the patient was asymptomatic when Dr. Mendoza has evaluated him. So patient was started on clear liquids. But in the afternoon patient threw up what he had for lunch. As per the nursing staff report, patient has a guardian, who called us this morning stating that he has psych issues, and wants psychiatric to evaluate him. And having a conversation with the patient about this issue,he states he has a guardian but not sure why he has one. Patient is oriented 4. He states that he lives all by himself and takes care of himself. He cooks and cleans for himself. On reviewing his previous histories patient had couple of admissions in the past for mood disorders. Review of Systems REVIEW OF SYSTEMS: PSYCH: History of anxiety, PTSD, ADHD NEURO:No c/o weakness of the extremties, No facial droop, No speech abnormalities. VASCULAR: no edema HEMATOLOGIC: No history of easy bleeding and bruising . No recent infections . RESPIRATORY: No cough, No SOB, No chest discomfort. IMMUNE: No infections INTEGUMENT: no rashes OPHTHALMOLOGIC: No blurry vision and no eye discharge : No dysuria or hematuria CARDIAC: No chest pain , shortness of breath , paroxysmal nocturnal dyspnea MUSCULOSKELETAL : No Aches or pains in the joints or muscles. GI: As per HPI All 13 review of systems are negative except for ones mentioned above Past Medical History Past Medical History: GERD/Reflux, Osteoarthritis (OA), Seizure Disorder Additional Past Medical History / Comment(s): mitral valve prolapse, last seizure 1999, L inguinal hernia, pancreatitis in 2011 History of Any Multi-Drug Resistant Organisms: MRSA Date of last positivie culture/infection: 11/18/15 MDRO Source:: HEAD Past Surgical History: Orthopedic Surgery Additional Past Surgical History / Comment(s): left humerus ORIF with pins since removed, lanced lymph nodes from left arm Past Anesthesia/Blood Transfusion Reactions: No Reported Reaction Past Psychological History: ADD/ADHD, Anxiety, Depression, Panic Disorder Additional Psychological History / Comment(s): ADHD. Pt resides alone. He does not drive. Pt just started going to [facility] in [place] to see p sychiatrist (one time so far). Pt has had previous suicide attempts but states his depression is stable at this time. He denies any thoughts of suicide or wishing he were . Smoking Status: Former smoker Past Alcohol Use History: None Reported Additional Past Alcohol Use History / Comment(s): Patient stated he quit smoking may 2019. He uses marijuana multiple times per day. He denies alcohol. Past Drug Use History: None Reported - Past Family History Father Family Medical History: Cancer Additional Family Medical History / Comment(s): from Hodgkins lymphoma. He also had prostate cancer. He at 60yrs. Mother Family Medical History: Cancer Additional Family Medical History / Comment(s): at age 57 from lung cancer. She was a smoker. Sister(s) History Unknown: Yes Additional Family Medical History / Comment(s): One sister with no major medical problems. Sister is payee for patient Medications and Allergies Home Medications Medication Instructions Recorded Confirmed Type Gabapentin [Neurontin] 300 mg PO TID 07/16/19 07/16/19 History Ibuprofen [Motrin] 800 mg PO TID PRN 07/16/19 07/16/19 History Omeprazole [PriLOSEC] 20 mg PO DAILY 07/16/19 07/16/19 History Verapamil HCl [Verapamil ER] 120 mg PO DAILY 07/16/19 07/16/19 History Allergies Allergy/AdvReac Type Severity Reaction Status Date / Time aspirin AdvReac EARS RING Verified 07/16/19 22:09 diphenhydramine HCl AdvReac Hallucinati Verified 07/16/19 22:09 [From Benadl] ons Physical Exam Vitals: Vital Signs Temp Pulse Pulse Resp BP BP Pulse Ox 07/17/19 05:37 98.3 F 69 14 110/66 98 07/16/19 23:55 16 07/16/19 23:48 98.4 F 93 16 113/56 97 07/16/19 22:29 155/77 07/16/19 22:18 98.8 F 63 15 142/73 96 07/16/19 20:14 99.0 F 88 16 121/73 97 Intake and Output 07/16/19 07/17/19 07/17/19 22:59 06:59 14:59 Intake Total 200 Balance 200 Intake: Oral 200 Other: Voiding Method Toilet # Voids 2 Weight 63.503 kg GEN. APPEARANCE: alert, in no apparent distress: Patient just threw up, liquidy vomitus seen in the bowl HEAD EXAM: atraumatic, normocephalic, normal inspection EYE EXAM: No pallor. No icterus. PERRLA ENT EXAM: normal exam, mucous membranes moist NECK EXAM: normal inspection. Absent: tenderness, meningismus, full ROM, lymphadenopathy RESPIRATORY EXAM: normal lung sounds bilaterally. No wheezing or crackles. CARDIOVASCULAR EXAM: regular rate, normal rhythm, normal heart sounds. GI/ABDOMINAL EXAM: soft, normal bowel sounds. Mild tenderness in all quadrants. No guarding or rigidity. EXTREMITIES EXAM: No pedal edema. NEUROLOGICAL EXAM: alert, oriented X3, no focal neurological deficits. PSYCHIATRIC EXAM: normal affect, normal mood SKIN EXAM: warm, dry, intact, normal color. Absent: rash Results CBC & Chem 7: 07/17/19 09:08 07/17/19 09:08 Labs: Abnormal Lab Results - Last 24 Hours (Table) 07/16/19 07/16/19 07/16/19 Range/Units 20:20 20:20 21:45 RBC 4.18 L (4.30-5.90) m/uL Hgb (13.0-17.5) gm/dL Hct (39.0-53.0) % Neutrophils # 9.1 H (1.3-7.7) k/uL Lymphocytes # 0.7 L (1.0-4.8) k/uL Chloride (98-107) mmol/L Glucose 115 H (74-99) mg/dL Amylase 145 H (30-110) U/L Lipase 1939 H (23-300) U/L Urine Ketones 2+ H (Negative) 07/17/19 07/17/19 Range/Units 09:08 09:08 RBC 3.68 L (4.30-5.90) m/uL Hgb 11.9 L (13.0-17.5) gm/dL Hct 35.6 L (39.0-53.0) % Neutrophils # (1.3-7.7) k/uL Lymphocytes # (1.0-4.8) k/uL Chloride 108 H (98-107) mmol/L Glucose (74-99) mg/dL Amylase (30-110) U/L Lipase 348 H (23-300) U/L Urine Ketones (Negative) Thrombosis Risk Factor Assmnt - Choose All That Apply Each Factor Represents 1 point: Age 41-60 years Thrombosis Risk Factor Assessment Total Risk Factor Score: 1 Thrombosis Risk Factor Assessment Level: Low Risk Assessment and Plan Assessment: ASSESSMENT Acute pancreatitis- unclear etiology Osteoarthritis multiple joints Seizure disorder Mitral wall prolapse History of recurrent pancreatitis Anxiety with depression ADHD Panic disorder PLAN: Patient will be kept nothing by mouth as he is still throwing up. His lipase levels are trending down, we'll continue to monitor. In regards to the conversation brought up by his caregiver, patient does have a psychiatric history, but currently he is alert awake oriented 4. He does not have any active suicidal or homicidal ideation. Will continue to monitor him. Will continue with the current medication regimen. Further recommendations to follow depending on the progress the patient.
[2019-07-17] MEDS: VERAPAMIL SR 120 MG TABLET.ER PO SCH ×2 (14:03→15:18)
[2019-07-17] MEDS: KETOROLAC 30 MG/ML 1 ML VIAL IVP PRN (14:04)
[2019-07-17] MEDS: GABAPENTIN 300 MG CAP PO SCH ×2 (15:21→21:19)
[2019-07-17] MEDS: PANTOPRAZOLE 40 MG TABLET PO SCH ×2 (17:23→17:37)
[2019-07-18] MEDS: GABAPENTIN 300 MG CAP PO SCH ×3 (03:59→21:04)
[2019-07-18 07:53] LABS: Basophils # (A) 0.1 k/uL (0-0.2); Basophils % (A) 1 %; Eosinophils # (A) 0.1 k/uL (0-0.7); Eosinophils % (A) 2 %; HCT 34.5 % (39.0-53.0); HGB 11.8 gm/dL (13.0-17.5); Lymphocytes # (A) 1.6 k/uL (1.0-4.8); Lymphocytes % (A) 36 %; MCH 32.7 pg (25.0-35.0); MCHC 34.3 g/dL (31.0-37.0); MCV 95.5 fL (80.0-100.0); Mean Platelet Volume 5.9; Monocytes # (A) 0.4 k/uL (0-1.0); Monocytes % (A) 8 %; Neutrophils # (A) 2.2 k/uL (1.3-7.7); Neutrophils % (A) 50 %; Platelet Count 253 k/uL (150-450); RBC 3.62 m/uL (4.30-5.90); RDW 12.4 % (11.5-15.5); WBC 4.4 k/uL (3.8-10.6)
[2019-07-18] MEDS: PANTOPRAZOLE 40 MG TABLET PO SCH (07:53)
[2019-07-18] MEDS: VERAPAMIL SR 120 MG TABLET.ER PO SCH (07:53)
[2019-07-18] MEDS: SODIUM CHLORIDE 0.9% 1,000 ML IV SCH ×3 (07:54→21:04)
[2019-07-18 08:08] LABS: ALT 36 U/L (21-72); AST 19 U/L (17-59); African American GFR (CKD) >90 (>60 ml/min/1.73 sqM); Albumin 3.1 g/dL (3.5-5.0); Alkaline Phosphatase 50 U/L (38-126); Amylase 35 U/L (30-110); Anion Gap 5 mmol/L; Blood Urea Nitrogen 8 mg/dL (9-20); Calcium 8.3 mg/dL (8.4-10.2); Carbon Dioxide 24 mmol/L (22-30); Chloride 109 mmol/L (98-107); Glucose 81 mg/dL (74-99); Non-African American GFR(CKD) >90 (>60 ml/min/1.73 sqM); Potassium 3.8 mmol/L (3.5-5.1); Sodium 138 mmol/L (137-145); Total Bilirubin 0.6 mg/dL (0.2-1.3); Total Protein 5.4 g/dL (6.3-8.2); Triglycerides 83 mg/dL (<150)
[2019-07-18] MEDS: KETOROLAC 30 MG/ML 1 ML VIAL IVP PRN ×2 (08:40→14:51)
[2019-07-18] MEDS: ONDANSETRON 4 MG/2 ML VIAL IVP PRN (14:52)
[2019-07-18] MEDS: HYDROmorphone 0.5 MG/0.5 ML SYRINGE IVP PRN ×2 (15:34→18:14)
--- NOTE | 2019-07-18 16:06 | P.CN ---
Psychiatric Consult - . Consult date: 07/18/19 Consult:: Reason for consultation: "Patient has psychiatric history" Identifying data: Patient is a 9-year-old male who has psychiatric history of unspecified mood disorder and substance use disorder. The patient was seen while he was at medical floor. As per chart review the patient has previous multiple psychiatric hospitalization and last time was at psych unit in this hospital in 2017 diagnosed was unspecified psychosis and unspecified mood disorder, and cannabis use disorder. Chief complaint and history of present illness: The patient was admitted to medical floor because of here abdominal pain, nausea, and vomiting. Patient reports he came to the hospital because of severe nausea and vomiting and he was diagnosed with acute pancreatitis. The patient denies any current psychiatric symptoms and was surprised why the medical team was consulted psychiatry. Patient denies any current depression symptoms, feeling hopeless, or suicidal. He denies any current manic or psychotic symptoms. He denies any severe anxiety or panic attacks. Patient reports he was frustrated when he came to the hospital because of the severe pain and his medical symptoms and that might be misunderstood by the primary team as severe agitation or mood problems. Patient reports that he is currently receiving outpatient psychiatric service and only diagnosis he has is attention problem. He reports not taking any psychiatric medications at this time and he is waiting for further assessment and diagnostic testing by his outpatient psychiatrist before start any treatment. Past psychiatric history: Previous psychiatric hospitalization: Reports multiple previous psychiatric hospitalizations with the last time was 2016 Previous suicidal attempts: Denies any previous suicidal attempt. Previous psychiatric treatment: Reports currently connected with outpatient psychiatric treatment as in [facility]. Substance use history: Nicotine: Quitting smoking 1 month ago. Alcohol: Denies any use of alcohol. Cannabis: Admitted for infrequent use of marijuana. Denies any history of using cocaine, street opiates, or methamphetamine. Family history of psychiatric illness: Denies any family history of mental illness, suicide, or addiction problem Mental status examination; Appearance: The patient appears stated age, adequately groomed and dressed, no specific features. Gait/posture: The patient was lying in bed Attitude and behavior: engaged, cooperative, eye contact. Motor activity: Normal psychomotor activity Speech: Normal rate, tone. Mood: Anxious Affect: Constricted Thought form: goal-directed, linear, coherent. Thought content: Non-delusional, denies suicidal thoughts, denies homicidal thoughts, denies intentions or plans. Perception: Denies any auditory or visual hallucinations Attention: No impairment. Patient was able to repeat serial 5. Orientation: Patient patient was fully oriented to time place person and situation. Insight: Patient has fair insight about his psychiatric disorder. Judgment: Patient has fair judgment about his psychiatric treatment. Assessment: ADHD by history. Unspecified mood disorder by history. Cannabis use disorder by history. Recommendations: Addressed and ensured patient's safety, patient is not actively suicidal, and he denies any thoughts to hurt self or others. Patient is psychiatrically stable to continue treatment as an outpatient, and does not meet the criteria for psychiatric hospitalization. At this time there is no need for further follow-up by psychiatric team . Medication management: No medications indicated at this time. Patient to follow up with his outpatient psychiatric treatment Discussed the treatment plan with the requesting physician/service. Psycho-education was provided to the patient. Thank you for permitting me to assist in this patient's treatment. Please call psychiatry department if you have any question or need further help with this case. 07/18/19 16:05
--- NOTE | 2019-07-18 16:28 | P.PN ---
Subjective Progress Note Date: 07/18/19 Principal diagnosis: Acute pancreatitis Mr. Gotti is a 49-year-old male with a past medical history of GERD, seizure disorder, recurrent pancreatitis, osteoarthritis questionable and fibromyalgia, anxiety, depression coming in to the hospital with a chief complaint of abdominal pain nausea and vomiting. Patient has been throwing up all day yesterday, every hour, so came to the emergency department for further evaluation. He states that whenever he has pancreatitis he feels the same and he thinks it is one of these episodes. Patient denies throwing up any blood. He denies having any constipation or diarrhea. Patient had similar complaints in the past few times. He denies alcohol consumption. He is not sure of having any gallbladder issues. He denies having any other active complaints. In the ER patient had blood work done showing elevated lipase and amylase. So he has been admitted for further evaluation. On 07/18/2019 - patient was lying in the bed comfortably appears to be no acute distress. Patient tolerated his chicken broth this morning. But later in the afternoon the nurse called me and said the patient threw up. Patient was having mild abdominal discomfort. No chest pain or palpitations. No cough or difficulty in breathing. No dysuria or hematuria. Patient's vitals have been stable and his labs this morning showed decreased amylase and lipase levels. Active Medications Gabapentin (Neurontin) 300 mg PO TID [facility] Last Admin: 07/18/19 03:59 Dose: 300 mg Documented by: Hydromorphone HCl (Dilaudid) 0.5 mg IVP Q3HR PRN PRN Reason: Moderate Pain Last Admin: 07/18/19 15:34 Dose: 0.5 mg Documented by: Sodium Chloride (Saline 0.9%) 1,000 mls @ 120 mls/hr IV .Q8H20M [facility] Last Admin: 07/18/19 07:54 Dose: 120 mls/hr Documented by: Ketorolac Tromethamine (Toradol) 30 mg IVP Q6HR PRN PRN Reason: Moderate Pain Stop: 07/21/19 22:01 Last Admin: 07/18/19 14:51 Dose: 30 mg Documented by: Naloxone HCl (Narcan) 0.2 mg IV Q2M PRN PRN Reason: Opioid Reversal Ondansetron HCl (Zofran) 4 mg IVP Q8HR PRN PRN Reason: Nausea And Vomiting Last Admin: 07/18/19 14:52 Dose: 4 mg Documented by: Pantoprazole Sodium (Protonix) 40 mg PO AC-BRKFST [facility] Last Admin: 07/18/19 07:53 Dose: 40 mg Documented by: Verapamil HCl (Isoptin Sr) 120 mg PO DAILY [facility] Last Admin: 07/18/19 07:53 Dose: 120 mg Documented by: Objective - Vital Signs Vital signs: Vital Signs Temp 98.0 F 07/18/19 14:39 Pulse 59 L 07/18/19 14:39 Resp 16 07/18/19 14:39 BP 134/77 07/18/19 14:39 Pulse Ox 99 07/18/19 14:39 Intake & Output 07/17/19 07/18/19 07/18/19 18:59 06:59 18:59 Intake Total 200 960 Output Total 1 Balance 199 960 Intake: Intake, IV Titration 960 Amount Sodium Chloride 0.9% 1, 960 000 ml @ 120 mls/hr IV . Q8H20M [facility] Rx#:[id number] Oral 200 Output: Emesis 1 Other: Voiding Method Toilet # Voids 1 1 2 - Exam GEN. APPEARANCE: alert, in no apparent distress: Patient just threw up, liquidy vomitus seen in the bowl HEENT : No pallor. No icterus. No JVD. RESPIRATORY EXAM: normal lung sounds bilaterally. No wheezing or crackles. CARDIOVASCULAR EXAM: regular rate, normal rhythm, normal heart sounds. GI/ABDOMINAL EXAM: soft, normal bowel sounds. Mild tenderness in all quadrants. No guarding or rigidity. EXTREMITIES EXAM: No pedal edema. NEUROLOGICAL EXAM: alert, oriented X3, no focal neurological deficits. PSYCHIATRIC EXAM: normal affect, normal mood SKIN EXAM: warm, dry, intact, normal color. Absent: rash - Labs CBC & Chem 7: 07/18/19 07:26 07/18/19 07:26 Labs: Abnormal Lab Results - Last 24 Hours (Table) 07/18/19 07/18/19 Range/Units 07:26 07:26 RBC 3.62 L (4.30-5.90) m/uL Hgb 11.8 L (13.0-17.5) gm/dL Hct 34.5 L (39.0-53.0) % Chloride 109 H (98-107) mmol/L BUN 8 L (9-20) mg/dL Calcium 8.3 L (8.4-10.2) mg/dL Total Protein 5.4 L (6.3-8.2) g/dL Albumin 3.1 L (3.5-5.0) g/dL Assessment and Plan Assessment: ASSESSMENT Acute pancreatitis- unclear etiology Osteoarthritis multiple joints Seizure disorder Mitral wall prolapse History of recurrent pancreatitis Anxiety with depression ADHD Panic disorder PLAN: Patient will be kept nothing by mouth as he is still throwing up. His lipase levels are trending down, we'll continue to monitor. Patient has been evaluated by psychiatric services and advised outpatient psychiatric follow-up. GI Dr. Mendoza on board and following. Will continue with the current medication regimen. Further recommendations to follow depending on the progress the patient.
--- NOTE | 2019-07-18 17:55 | PN ---
PROGRESS NOTE DATE OF DICTATION: 07/18/2019 Patient is a 49-year-old pleasant white male admitted to the hospital with acute pancreatitis. He is feeling much better. His diet was advanced to a full liquid diet, but this afternoon he had several episodes of nausea and vomiting and he is back on a clear liquid diet. At present he is feeling better. No further episodes of nausea and vomiting. PHYSICAL EXAMINATION: He appears comfortable. No apparent distress. VITAL SIGNS: Stable. Blood pressure 134/77, pulse rate 59, temperature 98. HEENT examination unremarkable. Conjunctivae pink. Sclerae anicteric. Oral cavity no lesions. NECK: No JVD or lymph node enlargement. CHEST: Clear to auscultation. HEART: Regular rate and rhythm. ABDOMEN: Soft. Bowel sounds are positive. No organomegaly. EXTREMITIES: No pedal edema. SKIN: No rashes. NEUROLOGIC: Alert and oriented x3. No focal deficits. LABS: WBC 4.4, hemoglobin 11.8, platelets normal. Basic metabolic panel is normal. ALT, AST, T-bilirubin, alkaline phosphatase are normal. Lipase is down to 80. Amylase is 35. IMPRESSION: Acute pancreatitis, first episode, resolving. Patient on a clear liquid diet today. He had an episode of nausea and vomiting this afternoon but now doing much better. Fasting triglyceride levels are within normal limits. JULIA is negative. RECOMMENDATIONS: He was advised to continue on a clear liquid diet for dinner today, and tomorrow morning if he is doing fine, diet can be advanced to a low-fat diet. He can be discharged home tomorrow with outpatient followup in 2 to 3 weeks. Thank you for this consultation. MMSOURAVL / JESUS: [id number] /
[2019-07-19] MEDS: HYDROmorphone 0.5 MG/0.5 ML SYRINGE IVP PRN (01:05)
[2019-07-19] MEDS: PANTOPRAZOLE 40 MG TABLET PO SCH (08:53)
[2019-07-19] MEDS: GABAPENTIN 300 MG CAP PO SCH (08:53)
[2019-07-19] MEDS: VERAPAMIL SR 120 MG TABLET.ER PO SCH (08:53)
[2019-07-19 09:14] LABS: African American GFR (CKD) >90 (>60 ml/min/1.73 sqM); Anion Gap 6 mmol/L; Blood Urea Nitrogen 5 mg/dL (9-20); Calcium 8.9 mg/dL (8.4-10.2); Carbon Dioxide 26 mmol/L (22-30); Chloride 105 mmol/L (98-107); Glucose 102 mg/dL (74-99); Non-African American GFR(CKD) >90 (>60 ml/min/1.73 sqM); Sodium 137 mmol/L (137-145)
[2019-07-19] MEDS: ONDANSETRON 4 MG/2 ML VIAL IVP PRN (12:35)
[2019-07-19] MEDS: SODIUM CHLORIDE 0.9% 1,000 ML IV SCH (12:37)
--- NOTE | 2019-07-19 13:55 | P.PN ---
Subjective Progress Note Date: 07/19/19 Shortness of pleasant 29-year-old white male admitted to the hospital with acute pancreatitis. He is feeling better today without complaints of abdominal pain, nausea, or vomiting. Patient attempted a full liquid diet yesterday and had an episode of emesis, and was put back on clear liquid diet. Patient had a clear liquid diet this morning which he tolerated well. Patient will advance to a low-fat diet this afternoon for lunch. Repeat labs yesterday with improved amylase 35 and lipase 80, and normal basic metabolic panel. Objective - Vital Signs Vital signs: Vital Signs Temp 97.6 F 07/19/19 05:30 Pulse 56 L 07/19/19 05:30 Resp 20 07/19/19 05:30 BP 149/77 07/19/19 05:30 Pulse Ox 99 07/19/19 05:30 Intake & Output 07/18/19 07/19/19 07/19/19 18:59 06:59 18:59 Other: # Voids 2 2 - Exam General appearance: The patient is alert, oriented, in no acute distress. HET: Head is normocephalic and atraumatic. Pupils are equal and reactive. Oropharynx is clear without lesions. Neck: Supple without lymphadenopathy. Trachea midline. Heart: S1 S2. Regular rate and rhythm. Lungs: No crackles or wheezes are heard. Abdomen: Soft, nontender, nondistended with bowel sounds. No peritoneal signs. No palpable organomegaly or masses. Extremities: Normal skin color and turgor. No cyanosis, rash, ulceration, clubbing, or edema. Radial and pedal pulses are 2/4 bilaterally. Neurological: No focal deficits. Strength and sensation are grossly intact. - Labs CBC & Chem 7: 07/18/19 07:26 07/19/19 08:18 Labs: Abnormal Lab Results - Last 24 Hours (Table) 07/19/19 Range/Units 08:18 BUN 5 L (9-20) mg/dL Glucose 102 H (74-99) mg/dL Assessment and Plan Assessment: 1. Acute pancreatitis, resolving. Fasting triglyceride level within normal limits. JULIA negative. Plan: Advanced to low-fat diet for lunch. Patient may be discharged home today with outpatient follow-up in 2-3 weeks. The above dictated assessment and findings were discussed with Dr. Mendoza. The impression and plan of care have been directed as dictated.
[2019-07-19 13:57] VITALS: BP 125/73; PULSE 54; RESP 14; TEMP 98.2
--- NOTE | 2019-07-19 16:12 | P.DS ---
Providers Date of admission: 07/17/19 13:20 Expected date of discharge: 07/19/19 Attending physician: Js Ramirez Consults: 07/16/19 22:01 Consult Physician Routine Consulting Provider: Blanquita Mendoza Consult Reason/Comments: pancreatitis Do you want consulting provider notified?: Yes 07/18/19 10:49 Consult Physician Routine Consulting Provider: Lito Carvajal Consult Reason/Comments: psych history Do you want consulting provider notified?: Yes Primary care physician: Alexandra Morris Hospital Course: Final diagnosis Acute pancreatitis- unclear etiology Osteoarthritis multiple joints Seizure disorder Mitral valve prolapse History of recurrent pancreatitis Anxiety with depression ADHD Panic disorder Discharge disposition Patient is being discharged in a stable condition with guarded prognosis to home and will follow-up with GI Dr. Mendoza in the outpatient setting in 1-2 weeks. Patient is also to follow-up with primary care provider upon discharge. Total time taken is 35 minutes. History of present illness This is a 49-year-old male with a past medical history of GERD, seizure disorder, recurrent pancreatitis, osteoarthritis questionable and fibromyalgia, anxiety, depression coming in to the hospital with a chief complaint of abdominal pain nausea and vomiting. Patient has been throwing up all day yesterday, every hour, so came to the emergency department for further evaluation. He states that whenever he has pancreatitis he feels the same and he thinks it is one of these episodes. Patient denies throwing up any blood. He denies having any constipation or diarrhea. Patient had similar complaints in the past few times. He denies alcohol consumption. He is not sure of having any gallbladder issues. He denies having any other active complaints. In the ER patient had blood work done showing elevated lipase and amylase. So he has been admitted for further evaluation. Currently patient tolerated clear liquid diet and was advanced to low-fat diet for lunch and tolerated. She denies any vomiting with intermittent periods of nausea. Patient denies any chest pain, shortness of breath, or palpitations at this time. Patient has been afebrile. Patient's amylase and lipase levels have normalized. Discussed with the patient at length about continuing a soft diet and advancing slowly as tolerated to minimize the risk of abdominal discomfort and vomiting. Patient stated he "doesn't have a lot of money coming out of his ears to pay for groceries and his shopping is done for the month and will continue with eating pizza and tacos as that is what he is used to." Currently patient was drinking coffee and this was his second cup of the day and tolerating with no difficulties, no abdominal pain, or discomfort. Again, stressed the importance of diet modification to help minimize the symptoms of pancreatitis and encouraged a soft diet and advance slowly for the next 24-48 hours. Currently patient's condition is stable with much improvement and will be discharged today. Patient will follow-up with GI in the outpatient setting in 1-2 weeks as discussed previously. Guarded prognosis. On exam vital signs are stable. Temp is 98.2F, pulse is 54, respirations are 14, blood pressure is 125/73, oxygen saturation is 95% on room air. Cardio S1, S2 are present. Respiratory system shows clear to auscultation. Abdomen is soft, thin, and non-tender. Nervous system shows no focal deficits and gait is steady. Please refer to medication reconciliation sheet for a list of medications. Patient Condition at Discharge: Fair Plan - Discharge Summary Discharge Rx Participant: No New Discharge Prescriptions: New Ondansetron HCl [Zofran] 4 mg PO TID PRN #12 tablet PRN Reason: Nausea Continue Gabapentin [Neurontin] 300 mg PO TID Omeprazole [PriLOSEC] 20 mg PO DAILY Verapamil HCl [Verapamil ER] 120 mg PO DAILY Discontinued Ibuprofen [Motrin] 800 mg PO TID PRN PRN Reason: Pain Discharge Medication List Gabapentin [Neurontin] 300 mg PO TID 07/16/19 [History] Omeprazole [PriLOSEC] 20 mg PO DAILY 07/16/19 [History] Verapamil HCl [Verapamil ER] 120 mg PO DAILY 07/16/19 [History] Ondansetron HCl [Zofran] 4 mg PO TID PRN #12 tablet 07/19/19 [Rx] Follow up Appointment(s)/Referral(s): Blanquita Mendoza MD [STAFF PHYSICIAN] - 08/05/19 1:20 pm Alexandra Morris MD [Primary Care Provider] - 07/20/19 2:15 pm (Kasie Sotelo) Patient Instructions/Handouts: Pancreatitis (DC), Soft Diet (DC) Activity/Diet/Wound Care/Special Instructions: Activity limited until follow up follow up with primary care provider upon discharge follow up with GI in 2-3 weeks continue soft diet for the next 24-48 hours and advance slowly as tolerated Discharge Disposition: HOME SELF-CARE
== END 2019-07-19 15:26 | disposition home or self-care (01) | DRG 440 ==
LOC: EC 20:05 → 4MS4W 21:57 → EEVIPCON 07-17 13:20 → OBSVTOIN 07-17 13:20
PROVIDERS: ADMIT Hospitalist; ATTEND Hospitalist
DX: K85.90 Acute pancreatitis without necrosis or infection, unspecified (principal); K86.1 Other chronic pancreatitis; F41.0 Panic disorder [episodic paroxysmal anxiety]; F90.9 Attention-deficit hyperactivity disorder, unspecified type; G40.909 Epilepsy, unspecified, not intractable, without status epilepticus; I34.1 Nonrheumatic mitral (valve) prolapse; M15.9 Polyosteoarthritis, unspecified; M79.7 Fibromyalgia; K21.9 Gastro-esophageal reflux disease without esophagitis; K40.90 Unilateral inguinal hernia, without obstruction or gangrene, not specified as recurrent; F32.9 Major depressive disorder, single episode, unspecified; F43.10 Post-traumatic stress disorder, unspecified; Z79.899 Other long term (current) drug therapy; Z91.5 Personal history of self-harm; Z87.891 Personal history of nicotine dependence; Z88.6 Allergy status to analgesic agent; Z88.8 Allergy status to other drugs, medicaments and biological substances; Z86.14 Personal history of Methicillin resistant Staphylococcus aureus infection; Z80.1 Family history of malignant neoplasm of trachea, bronchus and lung; Z80.42 Family history of malignant neoplasm of prostate; Z80.7 Family history of other malignant neoplasms of lymphoid, hematopoietic and related tissues
CPT/HCPCS: 36415; 76705; 80048; 80053; 81003; 82150; 83690; 84478; 85025; 85027; 96361; 96374; 96375; 99285

== ENCOUNTER 2019-08-08 06:01 | Emergency (ER) | payer MEDICARE, OTHER ==
[2019-08-08] MEDS ORDERED: SODIUM CHLORIDE 0.9% 1,000 ML IV STA (06:09)
[2019-08-08] MEDS ORDERED: ONDANSETRON 4 MG/2 ML VIAL IVP STA ×2 (06:09→06:37)
[2019-08-08] MEDS ORDERED: SODIUM CHLORIDE 0.9% 500 ML 500 ML IV STA (06:09)
[2019-08-08] MEDS ORDERED: KETOROLAC 30 MG/ML 1 ML VIAL IVP STA (06:09)
--- NOTE | 2019-08-08 06:18 | ED ---
Abdominal Pain HPI - General Stated Complaint: Pancreatitis Time Seen by Provider: 08/08/19 06:05 Source: patient, EMS, RN notes reviewed Mode of arrival: EMS Limitations: no limitations - History of Present Illness Initial Comments: 49-year-old male presents emergency Department with chief complaint of abdominal pain. Patient's pain started last couple days with associated nausea vomiting. He has had no fevers chills denies any diarrhea, constipation, dysuria or hematuria. Patient has no complaints of chest pain or shortness of breath. Patient had recurrent pancreatitis he states that they do not know cause for he denies any alcohol intake. Patient states symptoms seem very similar. Patient denies any recent abdominal surgeries. Patient denies flank pain no history kidney stones. - Related Data Home Medications Medication Instructions Recorded Confirmed Gabapentin [Neurontin] 300 mg PO TID 07/16/19 07/16/19 Omeprazole [PriLOSEC] 20 mg PO DAILY 07/16/19 07/16/19 Verapamil HCl [Verapamil ER] 120 mg PO DAILY 07/16/19 07/16/19 Previous Rx's Medication Instructions Recorded Ondansetron HCl [Zofran] 4 mg PO TID PRN #12 tablet 07/19/19 Ondansetron Odt [Zofran Odt] 4 mg PO Q8HR PRN #14 tab 08/08/19 Allergies Allergy/AdvReac Type Severity Reaction Status Date / Time aspirin AdvReac EARS RING Verified 08/08/19 06:13 diphenhydramine HCl AdvReac Hallucinati Verified 08/08/19 06:13 [From Benadryl] ons Review of Systems ROS Statement: Those systems with pertinent positive or pertinent negative responses have been documented in the HPI. ROS Other: All systems not noted in ROS Statement are negative. Past Medical History Past Medical History: GERD/Reflux, Osteoarthritis (OA), Seizure Disorder Additional Past Medical History / Comment(s): mitral valve prolapse, last seizure 1999, L inguinal hernia, pancreatitis in 2011 History of Any Multi-Drug Resistant Organisms: MRSA Date of last positivie culture/infection: 11/18/15 MDRO Source:: HEAD Past Surgical History: Orthopedic Surgery Additional Past Surgical History / Comment(s): left humerus ORIF with pins since removed, lanced lymph nodes from left arm Past Anesthesia/Blood Transfusion Reactions: No Reported Reaction Past Psychological History: ADD/ADHD, Anxiety, Depression, Panic Disorder Smoking Status: Current some day smoker Past Alcohol Use History: None Reported Past Drug Use History: Marijuana - Past Family History Father Family Medical History: Cancer Additional Family Medical History / Comment(s): from Hodgkins lymphoma. He also had prostate cancer. He at 60yrs. Mother Family Medical History: Cancer Additional Family Medical History / Comment(s): at age 57 from lung cancer. She was a smoker. Sister(s) History Unknown: Yes Additional Family Medical History / Comment(s): One sister with no major medical problems. Sister is payee for patient General Exam Limitations: no limitations General appearance: alert, in no apparent distress Head exam: Present: atraumatic, normocephalic, normal inspection Eye exam: Present: normal appearance, PERRL, EOMI. Absent: scleral icterus, conjunctival injection, periorbital swelling Respiratory exam: Present: normal lung sounds bilaterally. Absent: respiratory distress, wheezes, rales, rhonchi, stridor Cardiovascular Exam: Present: regular rate, normal rhythm, normal heart sounds. Absent: systolic murmur, diastolic murmur, rubs, gallop, clicks GI/Abdominal exam: Present: soft, tenderness (Moderate mid abdominal tenderness), normal bowel sounds. Absent: distended, guarding, rebound, rigid Back exam: Absent: CVA tenderness (R), CVA tenderness (L) Neurological exam: Present: alert, oriented X3 Skin exam: Present: warm, dry, intact, normal color. Absent: rash Course Vital Signs 08/08/19 08/08/19 06:09 07:16 Temperature 97.4 F L Pulse Rate 85 65 Respiratory 17 18 Rate Blood Pressure 155/81 140/62 O2 Sat by Pulse 98 98 Oximetry Medical Decision Making - Medical Decision Making Labs are unremarkable at this time patient does feel improved after antiemetics, Toradol. Patient may have viral GI bug, or early pancreatitis as he has chronic issues. Patient will be discharged with antiemetics, pain control advised to 6 a clear liquid diet and return for any worsening symptoms. - Lab Data Result diagrams: 08/08/19 06:17 08/08/19 06:17 Lab Results 08/08/19 08/08/19 Range/Units 06:17 06:17 WBC 11.6 H (3.8-10.6) k/uL RBC 4.53 (4.30-5.90) m/uL Hgb 14.7 (13.0-17.5) gm/dL Hct 43.0 (39.0-53.0) % MCV 94.9 (80.0-100.0) fL MCH 32.5 (25.0-35.0) pg MCHC 34.3 (31.0-37.0) g/dL RDW 12.4 (11.5-15.5) % Plt Count 297 (150-450) k/uL Neutrophils % 78 % Lymphocytes % 15 % Monocytes % 4 % Eosinophils % 2 % Basophils % 0 % Neutrophils # 9.0 H (1.3-7.7) k/uL Lymphocytes # 1.8 (1.0-4.8) k/uL Monocytes # 0.4 (0-1.0) k/uL Eosinophils # 0.2 (0-0.7) k/uL Basophils # 0.0 (0-0.2) k/uL Sodium 141 (137-145) mmol/L Potassium 3.6 (3.5-5.1) mmol/L Chloride 105 (98-107) mmol/L Carbon Dioxide 23 (22-30) mmol/L Anion Gap 13 mmol/L BUN 18 (9-20) mg/dL Creatinine 0.88 (0.66-1.25) mg/dL Est GFR (CKD-EPI)AfAm >90 (>60 ml/min/1.73 sqM) Est GFR (CKD-EPI)NonAf >90 (>60 ml/min/1.73 sqM) Glucose 125 H (74-99) mg/dL Calcium 10.0 (8.4-10.2) mg/dL Total Bilirubin 0.5 (0.2-1.3) mg/dL AST 29 (17-59) U/L ALT 40 (21-72) U/L Alkaline Phosphatase 62 (38-126) U/L Total Protein 7.3 (6.3-8.2) g/dL Albumin 4.4 (3.5-5.0) g/dL Lipase 152 (23-300) U/L Serum Alcohol <10 mg/dL Disposition Clinical Impression: Abdominal pain, Nausea & vomiting Disposition: HOME SELF-CARE Condition: Stable Instructions (If sedation given, give patient instructions): Abdominal Pain (ED) Additional Instructions: Please return to the Emergency Department if symptoms worsen or any other concerns. Prescriptions: Ondansetron Odt [Zofran Odt] 4 mg PO Q8HR PRN #14 tab PRN Reason: Nausea Is patient prescribed a controlled substance at d/c from ED?: No Referrals: Alexandra Morris MD [Primary Care Provider] - 1-2 days Time of Disposition: 07:46
[2019-08-08 06:24] LABS: Basophils % (A) 0 %; Eosinophils # (A) 0.2 k/uL (0-0.7); Eosinophils % (A) 2 %; HGB 14.7 gm/dL (13.0-17.5); Lymphocytes # (A) 1.8 k/uL (1.0-4.8); Lymphocytes % (A) 15 %; MCH 32.5 pg (25.0-35.0); MCHC 34.3 g/dL (31.0-37.0); MCV 94.9 fL (80.0-100.0); Monocytes # (A) 0.4 k/uL (0-1.0); Monocytes % (A) 4 %; Neutrophils % (A) 78 %; Platelet Count 297 k/uL (150-450); RBC 4.53 m/uL (4.30-5.90); RDW 12.4 % (11.5-15.5); WBC 11.6 k/uL (3.8-10.6)
[2019-08-08 06:34] LABS: ALT 40 U/L (21-72); AST 29 U/L (17-59); African American GFR (CKD) >90 (>60 ml/min/1.73 sqM); Albumin 4.4 g/dL (3.5-5.0); Alcohol <10 mg/dL; Alkaline Phosphatase 62 U/L (38-126); Anion Gap 13 mmol/L; Blood Urea Nitrogen 18 mg/dL (9-20); Carbon Dioxide 23 mmol/L (22-30); Chloride 105 mmol/L (98-107); Glucose 125 mg/dL (74-99); Non-African American GFR(CKD) >90 (>60 ml/min/1.73 sqM); Potassium 3.6 mmol/L (3.5-5.1); Sodium 141 mmol/L (137-145); Total Bilirubin 0.5 mg/dL (0.2-1.3); Total Protein 7.3 g/dL (6.3-8.2)
[2019-08-08] MEDS ORDERED: LORazepam 2 MG/ML INJ IV STA (06:37)
[2019-08-08] MEDS ORDERED: PROMETHAZINE INJ 25 MG in SODIUM CHLORIDE 0.9% 50 ML IVPB STA (06:37)
[2019-08-08 07:18] VITALS: RESP 18
[2019-08-08] MEDS ORDERED: ACET/COD 300 MG/30 MG STARTER PACK 6 TAB BTL PO STA (07:46)
[2019-08-08 07:52] LABS: Appearance,Urine Clear (Clear); Bacteria,Urine Rare /hpf; Bilirubin,Urine Negative (Negative); Blood,Urine Negative (Negative); Color,Urine Yellow; Glucose,Urine (UA) Negative (Negative); Ketones,Urine Trace (Negative); Leukocyte Esterase,Urine Small (Negative); Mucus,Urine Rare /hpf; Nitrite,Urine Negative (Negative); PH, Urine 6.5 (5.0-8.0); Protein,Urine Negative (Negative); RBC,Urine 1 /hpf (0-5); Specific Gravity,Urine 1.016 (1.001-1.035); Squamous Epithelial Cell,Urine 2 /hpf (0-4); Urobilinogen,Urine <2.0 mg/dL (<2.0); WBC,Urine 11 /hpf (0-5)
[2019-08-08 08:18] VITALS: BP 133/63; PULSE 63; TEMP 98.3
== END 2019-08-08 08:17 | disposition home or self-care (01) ==
LOC: EC 06:01
DX: R10.9 Unspecified abdominal pain (principal); R11.2 Nausea with vomiting, unspecified; K21.9 Gastro-esophageal reflux disease without esophagitis; F17.200 Nicotine dependence, unspecified, uncomplicated; Z79.899 Other long term (current) drug therapy; Z88.6 Allergy status to analgesic agent; Z88.8 Allergy status to other drugs, medicaments and biological substances
CPT/HCPCS: 99284 ×2; 96374 ×3; 96375 ×4; 96361 ×3; 36415; 80053; 82150; 83690; 85025; 81003; 81001; 87086; 74177; G0480; J2060; J2550; J2765; J2405; J1885; Q9967; 80320

== ENCOUNTER 2019-08-08 11:20 | Emergency (ER) | payer MEDICARE, OTHER ==
[2019-08-08 11:41] VITALS: TEMP 98.2
[2019-08-08] MEDS ORDERED: SODIUM CHLORIDE 0.9% 1,000 ML IV STA (12:01)
[2019-08-08] MEDS ORDERED: ONDANSETRON 4 MG/2 ML VIAL IVP STA (12:01)
[2019-08-08 12:28] LABS: Basophils % (A) 0 %; Eosinophils # (A) 0.1 k/uL (0-0.7); Eosinophils % (A) 1 %; HCT 43.7 % (39.0-53.0); HGB 14.9 gm/dL (13.0-17.5); Lymphocytes # (A) 0.9 k/uL (1.0-4.8); Lymphocytes % (A) 9 %; MCH 32.7 pg (25.0-35.0); MCHC 34.2 g/dL (31.0-37.0); MCV 95.6 fL (80.0-100.0); Mean Platelet Volume 6.7; Monocytes # (A) 0.3 k/uL (0-1.0); Monocytes % (A) 3 %; Neutrophils # (A) 8.8 k/uL (1.3-7.7); Neutrophils % (A) 86 %; Platelet Count 299 k/uL (150-450); RBC 4.57 m/uL (4.30-5.90); RDW 12.4 % (11.5-15.5); WBC 10.3 k/uL (3.8-10.6)
[2019-08-08 12:44] LABS: ALT 42 U/L (21-72); AST 30 U/L (17-59); African American GFR (CKD) >90 (>60 ml/min/1.73 sqM); Albumin 4.6 g/dL (3.5-5.0); Alkaline Phosphatase 63 U/L (38-126); Amylase 78 U/L (30-110); Anion Gap 10 mmol/L; Blood Urea Nitrogen 13 mg/dL (9-20); Calcium 9.3 mg/dL (8.4-10.2); Carbon Dioxide 27 mmol/L (22-30); Chloride 103 mmol/L (98-107); Glucose 121 mg/dL (74-99); Non-African American GFR(CKD) >90 (>60 ml/min/1.73 sqM); Potassium 4.3 mmol/L (3.5-5.1); Sodium 140 mmol/L (137-145); Total Bilirubin 0.5 mg/dL (0.2-1.3); Total Protein 7.5 g/dL (6.3-8.2)
--- NOTE | 2019-08-08 13:55 | ED ---
Abdominal Pain HPI - General Chief Complaint: Abdominal Pain Stated Complaint: nausea Time Seen by Provider: 08/08/19 12:01 Source: patient, RN notes reviewed Mode of arrival: ambulatory Limitations: no limitations - History of Present Illness Initial Comments: 49-year-old male presents emergency from for recheck of abdominal pain. Patient was seen earlier today chief complaints of abdominal pain nausea vomiting is concerned about possible pancreatitis. Patient had complete workup which is negative for acute findings. Patient was discharged with antiemetics and pain medication patient states he did not fill prescription for antiemetics. Patient states that he tried to eat much of food when he went home and states that he had some increased nausea. Patient has no dysuria no hematuria denies any melena. Patient offers no complaints. Denies chest or shortness of breath - Related Data Home Medications Medication Instructions Recorded Confirmed Gabapentin [Neurontin] 300 mg PO TID 07/16/19 07/16/19 Omeprazole [PriLOSEC] 20 mg PO DAILY 07/16/19 07/16/19 Verapamil HCl [Verapamil ER] 120 mg PO DAILY 07/16/19 07/16/19 Previous Rx's Medication Instructions Recorded Ondansetron HCl [Zofran] 4 mg PO TID PRN #12 tablet 07/19/19 Ondansetron Odt [Zofran Odt] 4 mg PO Q8HR PRN #14 tab 08/08/19 Allergies Allergy/AdvReac Type Severity Reaction Status Date / Time aspirin AdvReac EARS RING Verified 08/08/19 06:13 diphenhydramine HCl AdvReac Hallucinati Verified 08/08/19 06:13 [From Benadryl] ons Review of Systems ROS Statement: Those systems with pertinent positive or pertinent negative responses have been documented in the HPI. ROS Other: All systems not noted in ROS Statement are negative. Past Medical History Past Medical History: GERD/Reflux, Osteoarthritis (OA), Seizure Disorder Additional Past Medical History / Comment(s): mitral valve prolapse, last seizure 1999, L inguinal hernia, pancreatitis in 2011 History of Any Multi-Drug Resistant Organisms: MRSA Date of last positivie culture/infection: 11/18/15 MDRO Source:: HEAD Past Surgical History: Orthopedic Surgery Additional Past Surgical History / Comment(s): left humerus ORIF with pins since removed, lanced lymph nodes from left arm Past Anesthesia/Blood Transfusion Reactions: No Reported Reaction Past Psychological History: ADD/ADHD, Anxiety, Depression, Panic Disorder Smoking Status: Current some day smoker Past Alcohol Use History: None Reported Past Drug Use History: Marijuana - Past Family History Father Family Medical History: Cancer Additional Family Medical History / Comment(s): from Hodgkins lymphoma. He also had prostate cancer. He at 60yrs. Mother Family Medical History: Cancer Additional Family Medical History / Comment(s): at age 57 from lung cancer. She was a smoker. Sister(s) History Unknown: Yes Additional Family Medical History / Comment(s): One sister with no major medical problems. Sister is payee for patient General Exam Limitations: no limitations General appearance: alert, in no apparent distress Head exam: Present: atraumatic, normocephalic, normal inspection Neck exam: Present: normal inspection. Absent: tenderness, meningismus, lymphadenopathy Respiratory exam: Present: normal lung sounds bilaterally. Absent: respiratory distress, wheezes, rales, rhonchi, stridor Cardiovascular Exam: Present: regular rate, normal rhythm, normal heart sounds. Absent: systolic murmur, diastolic murmur, rubs, gallop, clicks GI/Abdominal exam: Present: soft, tenderness (Mild diffuse), normal bowel sounds. Absent: distended, guarding, rebound, rigid Back exam: Absent: CVA tenderness (R), CVA tenderness (L) Neurological exam: Present: alert, oriented X3 Course Vital Signs 08/08/19 11:39 Temperature 98.2 F Pulse Rate 82 Respiratory 19 Rate Blood Pressure 154/70 O2 Sat by Pulse 98 Oximetry - Reevaluation(s) Reevaluation #1: 08/08/19 13:54 When in because patient calling them patient was attempting to gag himself to puke. Patient advised not to this. 08/08/19 13:54 Medical Decision Making - Medical Decision Making Patient had reevaluation for continuation nausea vomiting. He's had no episodes in emergency department. Patient had CT which is unremarkable. Patient advised to stick to a clear liquid diet take his antiemetics and return for any worsening symptoms. - Lab Data Result diagrams: 08/08/19 12:14 08/08/19 12:14 Lab Results 08/08/19 08/08/19 08/08/19 Range/Units 12:14 12:14 13:46 WBC 10.3 (3.8-10.6) k/uL RBC 4.57 (4.30-5.90) m/uL Hgb 14.9 (13.0-17.5) gm/dL Hct 43.7 (39.0-53.0) % MCV 95.6 (80.0-100.0) fL MCH 32.7 (25.0-35.0) pg MCHC 34.2 (31.0-37.0) g/dL RDW 12.4 (11.5-15.5) % Plt Count 299 (150-450) k/uL Neutrophils % 86 % Lymphocytes % 9 % Monocytes % 3 % Eosinophils % 1 % Basophils % 0 % Neutrophils # 8.8 H (1.3-7.7) k/uL Lymphocytes # 0.9 L (1.0-4.8) k/uL Monocytes # 0.3 (0-1.0) k/uL Eosinophils # 0.1 (0-0.7) k/uL Basophils # 0.0 (0-0.2) k/uL Sodium 140 (137-145) mmol/L Potassium 4.3 (3.5-5.1) mmol/L Chloride 103 (98-107) mmol/L Carbon Dioxide 27 (22-30) mmol/L Anion Gap 10 mmol/L BUN 13 (9-20) mg/dL Creatinine 0.84 (0.66-1.25) mg/dL Est GFR (CKD-EPI)AfAm >90 (>60 ml/min/1.73 sqM) Est GFR (CKD-EPI)NonAf >90 (>60 ml/min/1.73 sqM) Glucose 121 H (74-99) mg/dL Calcium 9.3 (8.4-10.2) mg/dL Total Bilirubin 0.5 (0.2-1.3) mg/dL AST 30 (17-59) U/L ALT 42 (21-72) U/L Alkaline Phosphatase 63 (38-126) U/L Total Protein 7.5 (6.3-8.2) g/dL Albumin 4.6 (3.5-5.0) g/dL Amylase 78 (30-110) U/L Lipase 137 (23-300) U/L Urine Color Colorless Urine Appearance Clear (Clear) Urine pH 7.5 (5.0-8.0) Ur Specific [place] 1.010 (1.001-1.035) Urine Protein Negative (Negative) Urine Glucose (UA) Negative (Negative) Urine Ketones Trace H (Negative) Urine Blood Negative (Negative) Urine Nitrite Negative (Negative) Urine Bilirubin Negative (Negative) Urine Urobilinogen <2.0 (<2.0) mg/dL Ur Leukocyte Esterase Negative (Negative) Disposition Clinical Impression: Abdominal pain Disposition: HOME SELF-CARE Condition: Stable Instructions (If sedation given, give patient instructions): Abdominal Pain (ED) Additional Instructions: Please return to the Emergency Department if symptoms worsen or any other concerns. Is patient prescribed a controlled substance at d/c from ED?: No Referrals: Alexandra Morris MD [Primary Care Provider] - 1-2 days Time of Disposition: 14:18
--- NOTE | 2019-08-08 14:00 | CT ---
EXAMINATION TYPE: CT abdomen pelvis w con DATE OF EXAM: 08/08/2019 COMPARISON: Abdominal ultrasound dated 07/16/[address] dated 01/08/2017 HISTORY: Stomach pain CT DLP: 604.9 mGycm Automated exposure control for dose reduction was used. TECHNIQUE: Helical acquisition of images was performed from the lung bases through the pelvis. CONTRAST: Performed without Oral Contrast and with IV Contrast, patient injected with 100 mL of Isovue 300. FINDINGS: LUNG BASES: No significant abnormality is appreciated. LIVER/GB: There are 3 subcentimeter hypoattenuated hepatic lesions within the right hepatic lobe on i mage 29 and 30 that are too small to accurately characterize. Focal fatty infiltration is seen near t he fissure for the falciform ligament. PANCREAS: No significant abnormality is seen. SPLEEN: No significant abnormality is seen. ADRENALS: No significant abnormality is seen. KIDNEYS: 7 mm cortical lesion is seen of the right kidney that is too small to actually characterize but favored to represent a cyst as this measures fluid attenuation on delayed imaging. Additional pun ctate 2 mm right renal lesion of the inferior pole is also too small to accurately characterize. No h ydronephrosis of either kidney. FREE AIR: No free air is visualized. REPRODUCTIVE ORGANS: Prostate gland is heterogenous containing few central zone calcifications. URINARY BLADDER: No significant abnormality is seen. ADENOPATHY: No greater than 1 cm short axis lymph node in the abdomen or pelvis. OSSEOUS STRUCTURES: Indeterminant right iliac sclerotic foci, possible bone islands. BOWEL: There is a small hiatal hernia. Stomach is incompletely distended but demonstrates prominent folds throughout. Appendix is partially air-filled and within normal limits of size measuring 5 mm. M ultiple loops of small bowel clustered in the left mid abdomen are slightly prominent in size and con tain small bowel feces sign. Somewhat paucity of small bowel in the right upper quadrant. IMPRESSION: 1. SMALL HERNIA. INCOMPLETE DISTENTION OF THE STOMACH WITH PROMINENT RUGAL FOLDS, GASTRECTASIS POSSIB LE. 2. SMALL BOWEL FECES SIGN OF MULTIPLE LOOPS OF SMALL BOWEL INDICATING OVERALL ILEUS. NO DILATED BOWEL TO SUGGEST OBSTRUCTION. NO EVIDENCE OF ACUTE APPENDICITIS.
[2019-08-08 14:11] LABS: Appearance,Urine Clear (Clear); Bilirubin,Urine Negative (Negative); Blood,Urine Negative (Negative); Color,Urine Colorless; Glucose,Urine (UA) Negative (Negative); Ketones,Urine Trace (Negative); Leukocyte Esterase,Urine Negative (Negative); Nitrite,Urine Negative (Negative); PH, Urine 7.5 (5.0-8.0); Protein,Urine Negative (Negative); Urobilinogen,Urine <2.0 mg/dL (<2.0)
[2019-08-08] MEDS ORDERED: METOCLOPRAMIDE 5 MG/ML 2 ML VIAL IVP STA (14:16)
[2019-08-08] MEDS ORDERED: KETOROLAC 30 MG/ML 1 ML VIAL IVP STA (14:16)
[2019-08-08 14:45] VITALS: BP 105/48; PULSE 87; RESP 18
== END 2019-08-08 15:28 | disposition home or self-care (01) ==
LOC: EC 11:20
DX: R10.9 Unspecified abdominal pain (principal); R11.2 Nausea with vomiting, unspecified; K21.9 Gastro-esophageal reflux disease without esophagitis; F17.200 Nicotine dependence, unspecified, uncomplicated; Z79.899 Other long term (current) drug therapy; Z88.6 Allergy status to analgesic agent; Z88.8 Allergy status to other drugs, medicaments and biological substances
CPT/HCPCS: 36415; 80053; 82150; 83690; 85025; 81003; 74177; 99284; 96374; 96375 ×2; 96361 ×2; J2765; J2405; J1885; Q9967

== ENCOUNTER → 2019-10-06 | Outpatient (CLI) | payer MEDICARE, OTHER ==
--- NOTE | 2019-10-06 12:11 | XR ---
EXAMINATION TYPE: XR cervical spine comp DATE OF EXAM: 10/06/2019 TECHNIQUE: Frontal, lateral, oblique, swimmers, and open mouth view of the cervical spine are obtaine d. HISTORY: R51 Headache M13.0 Polyarthritis COMPARISON: None FINDINGS: The cervical spine is visualized in its entirety from C1 thru the top of T1 level. There i s minimal retrolisthesis of C3 on C4. Remainder the cervical spine retains alignment. No vertebral norman dy height loss of the cervical spine. Minimal multilevel uncovertebral hypertrophy. The pre-vertebral soft tissue appears within normal limits. The C1-C2 articulation is within normal limits on the ope n mouth view. The oblique images are within normal limits. IMPRESSION: No acute fracture is seen in the cervical spine. Very minimal retrolisthesis of C3 on C4 is likely on a degenerative basis. Minimal degenerative disc disease of the cervical spine.
== END | disposition home or self-care (01) ==
LOC: RADXRMAIN 11:21
PROVIDERS: ATTEND Psychiatry & Neurology Neurology
DX: M43.12 Spondylolisthesis, cervical region (principal); M50.31 Other cervical disc degeneration, high cervical region
CPT/HCPCS: 72050

== ENCOUNTER 2020-01-02 22:13 | Emergency (ER) | payer MEDICARE, OTHER ==
[2020-01-02 22:22] VITALS: RESP 18; TEMP 97.9
[2020-01-02] MEDS ORDERED: LORazepam 1 MG TAB PO STA (22:47)
--- NOTE | 2020-01-02 22:48 | ED ---
Psych HPI - General Source: patient Mode of arrival: ambulatory <Citlaly Richter - Last Filed: 01/03/20 00:06> <Kalee Angelah Gerard - Last Filed: 01/04/20 13:30> - General Chief Complaint: Psychiatric Symptoms Stated Complaint: Mental Health Time Seen by Provider: 01/02/20 22:24 - History of Present Illness Initial Comments: 49-year-old male patient presents to the emergency department today for evaluation of increased stress. Patient states that he broke his phone about 4 weeks ago. He does not currently have television or Internet. States that with the current coronavirus pandemic he is isolated to his home and has no interaction with anyone. States that this is causing him to become stressed out. He denies any anxiety, suicidal ideation, or homicidal ideation. Denies any hallucinations. Denies alcohol or drug use. States he does not need a psychiatric evaluation. States he is unsure why he came here but states he need ed to get out of his house and see what was happening in the world. Patient does have a public guardian states he has been trying to contact them for assistance in getting a new phone. Patient denies any recent rash, fever, chills, cough, shortness of breath, chest pain, abdominal pain, nausea, vomiting, diarrhea, constipation, back pain, numbness, tingling, dizziness, weakness, hematuria, dysuria, urinary urgency, urinary frequency, headache, visual changes, or any other complaints. (Citlaly Richter) - Related Data Home Medications Medication Instructions Recorded Confirmed Gabapentin [Neurontin] 300 mg PO TID 07/16/19 07/16/19 Omeprazole [PriLOSEC] 20 mg PO DAILY 07/16/19 07/16/19 Verapamil HCl [Verapamil ER] 120 mg PO DAILY 07/16/19 07/16/19 Previous Rx's Medication Instructions Recorded Ondansetron HCl [Zofran] 4 mg PO TID PRN #12 tablet 07/19/19 Ondansetron Odt [Zofran Odt] 4 mg PO Q8HR PRN #14 tab 08/08/19 Allergies Allergy/AdvReac Type Severity Reaction Status Date / Time aspirin AdvReac EARS RING Verified 08/08/19 06:13 diphenhydramine HCl AdvReac Hallucinati Verified 08/08/19 06:13 [From Benadryl] ons Review of Systems ROS Other: All systems not noted in ROS Statement are negative. <Citlaly Richter - Last Filed: 01/03/20 00:06> ROS Other: All systems not noted in ROS Statement are negative. <Kezia Angel Gerard - Last Filed: 01/04/20 13:30> ROS Statement: Those systems with pertinent positive or pertinent negative responses have been documented in the HPI. Past Medical History Past Medical History: GERD/Reflux, Osteoarthritis (OA), Seizure Disorder Additional Past Medical History / Comment(s): mitral valve prolapse, last seizure 1999, L inguinal hernia, pancreatitis in 2011 History of Any Multi-Drug Resistant Organisms: MRSA Date of last positivie culture/infection: 11/18/15 MDRO Source:: HEAD Past Surgical History: Orthopedic Surgery Additional Past Surgical History / Comment(s): left humerus ORIF with pins since removed, lanced lymph nodes from left arm Past Anesthesia/Blood Transfusion Reactions: No Reported Reaction Past Psychological History: ADD/ADHD, Anxiety, Depression, Panic Disorder Smoking Status: Former smoker Past Alcohol Use History: None Reported Past Drug Use History: Marijuana - Past Family History Father Family Medical History: Cancer Additional Family Medical History / Comment(s): from Hodgkins lymphoma. He also had prostate cancer. He at 60yrs. Mother Family Medical History: Cancer Additional Family Medical History / Comment(s): at age 57 from lung cancer. She was a smoker. Sister(s) History Unknown: Yes Additional Family Medical History / Comment(s): One sister with no major medical problems. Sister is payee for patient <Citlaly Richter - Last Filed: 01/03/20 00:06> General Exam Limitations: no limitations General appearance: alert, in no apparent distress, anxious, other (This is a well-developed, well-nourished adult male patient in no acute distress. Vital signs upon presentation are temperature 97.9F, pulse 1:30, respirations 18, blood pressure 153/101, pulse ox 98% on room air.) Respiratory exam: Present: normal lung sounds bilaterally. Absent: respiratory distress, wheezes, rales, rhonchi, stridor Cardiovascular Exam: Present: regular rate, normal rhythm, normal heart sounds. Absent: systolic murmur, diastolic murmur, rubs, gallop, clicks Neurological exam: Present: alert, oriented X3, CN II-XII intact Psychiatric exam: Present: anxious. Absent: homicidal ideation, suicidal ideation Skin exam: Present: warm, dry, intact, normal color. Absent: rash <Citlaly Richter - Last Filed: 01/03/20 00:06> Course Vital Signs 01/02/20 01/02/20 01/02/20 22:17 22:54 23:06 Temperature 97.9 F Pulse Rate 130 H 101 H Respiratory 18 18 Rate Blood Pressure 153/101 144/77 O2 Sat by Pulse 98 98 Oximetry 01/02/20 23:20 Temperature 97.9 F Pulse Rate Respiratory Rate Blood Pressure O2 Sat by Pulse Oximetry Medical Decision Making <Citlaly Richter - Last Filed: 01/03/20 00:06> <Kezia Angel - Last Filed: 01/04/20 13:30> - Medical Decision Making 49-year-old male patient presents to the emergency department today for evaluation of increased stress due to being isolated due to the armstrong virus pain.neck. He is currently without a phone, told vision, or Internet. He denies any current physical symptoms or concerns. He denies suicidal or homicidal ideation. Denies hallucinations. He refuses psychiatric evaluation. It is felt the patient is not currently a threat to himself or others so he will be discharged. We did speak to his public guardian who agrees with discharge. He was instructed to call them and leave a message regarding a new phone. Return parameters were discussed in detail. They verbalize understanding and agree with this plan. (Citlaly Richter) I was available for consultation in the emergency department. The history and physical exam were done by the midlevel provider. I was consulted for this patients care. I reviewed the case with the midlevel provider and based on their presentation of the patient, I agree with the assessment, medical decision making and plan of care as documented. Chart was dictated using [employer] dictation software. Attempts were made to correct any dictation errors however some typographical errors may persist. Patient was seen during a national state of emergency due to the Covid-19 pandemic. (Kezia Angel) Disposition Is patient prescribed a controlled substance at d/c from ED?: No Time of Disposition: 22:48 <Citlaly Richter - Last Filed: 01/03/20 00:06> <Kezia Angel - Last Filed: 01/04/20 13:30> Clinical Impression: Acute stress reaction Disposition: HOME SELF-CARE Condition: Good Instructions (If sedation given, give patient instructions): Stress (ED) Additional Instructions: Follow up with your primary care physician for recheck in 1-2 days. Return to the emergency department for any new, worsening, or concerning symptoms. Referrals: Alexandra Morris MD [Primary Care Provider] - 1-2 days
[2020-01-02 22:55] VITALS: PULSE 101
[2020-01-02 23:07] VITALS: BP 144/77
== END 2020-01-02 23:20 | disposition home or self-care (01) ==
LOC: EC 22:13
DX: F43.0 Acute stress reaction (principal); K21.9 Gastro-esophageal reflux disease without esophagitis; M19.90 Unspecified osteoarthritis, unspecified site; G40.909 Epilepsy, unspecified, not intractable, without status epilepticus; Z79.899 Other long term (current) drug therapy; Z88.6 Allergy status to analgesic agent; Z88.8 Allergy status to other drugs, medicaments and biological substances; Z87.19 Personal history of other diseases of the digestive system; Z87.891 Personal history of nicotine dependence; Z86.14 Personal history of Methicillin resistant Staphylococcus aureus infection
CPT/HCPCS: 99284

== ENCOUNTER 2020-01-07 20:09 | Emergency (ER) | payer MEDICARE, OTHER ==
[2020-01-07 20:18] VITALS: BP 152/76; PULSE 90; RESP 18; TEMP 98.2
== END 2020-01-07 20:41 ==
LOC: EC 20:09
DX: Z53.21 Procedure and treatment not carried out due to patient leaving prior to being seen by health care provider (principal); Z73.3 Stress, not elsewhere classified
CPT/HCPCS: 99499

== ENCOUNTER 2020-05-04 03:47 | Inpatient (IN) | payer MEDICARE, MEDICAID ==
[2020-05-04 04:45] LABS: Cocaine Screen,Urine Not Detected (NotDetected); Phencyclidine Screen,Urine Not Detected (NotDetected); Urn Cannabinoid Scrn Detected (NotDetected)
[2020-05-04 04:46] LABS: Amphetamine Screen,Urine Not Detected (NotDetected); Barbiturate Screen,Urine Not Detected (NotDetected); Benzodiazepines Screen,Urine Not Detected (NotDetected); Methadone Screen, Urine Not Detected (NotDetected); Opiate Screen,Urine Not Detected (NotDetected); Oxycodone Screen, Urine Not Detected (NotDetected); Tricyclic Antidepressant,Urine Not Detected (NotDetected)
--- NOTE | 2020-05-04 04:53 | ED ---
Psych HPI - General Chief Complaint: Psychiatric Symptoms Stated Complaint: Mental health Time Seen by Provider: 05/04/20 04:02 Source: patient Mode of arrival: ambulatory - History of Present Illness Initial Comments: Patient's 50-year-old man who presents to have psychiatric evaluation. He states that he is having racing thoughts and also having more difficulty with anger management. The patient states he has punched holes in the [place] he lives. He also is having thoughts of harming other people. MD Complaint: other -: week(s) Associated Psychiatric Symptoms: racing thoughts History of same: Yes Quality: getting worse Improves With: none Worsens With: none Associated Symptoms: insomnia - Related Data Home Medications Medication Instructions Recorded Confirmed Gabapentin [Neurontin] 300 mg PO TID 07/16/19 07/16/19 Omeprazole [PriLOSEC] 20 mg PO DAILY 07/16/19 07/16/19 Verapamil HCl [Verapamil ER] 120 mg PO DAILY 07/16/19 07/16/19 Previous Rx's Medication Instructions Recorded Ondansetron HCl [Zofran] 4 mg PO TID PRN #12 tablet 07/19/19 Ondansetron Odt [Zofran Odt] 4 mg PO Q8HR PRN #14 tab 08/08/19 Allergies Allergy/AdvReac Type Severity Reaction Status Date / Time aspirin AdvReac EARS RING Verified 05/04/20 03:54 diphenhydramine HCl AdvReac Hallucinati Verified 05/04/20 03:54 [From Benadryl] ons Review of Systems ROS Statement: Those systems with pertinent positive or pertinent negative responses have been documented in the HPI. ROS Other: All systems not noted in ROS Statement are negative. Constitutional: Denies: fever Respiratory: Denies: cough, dyspnea Cardiovascular: Denies: chest pain, palpitations Gastrointestinal: Denies: abdominal pain, vomiting, diarrhea Genitourinary: Denies: dysuria Musculoskeletal: Denies: back pain Skin: Denies: rash Neurological: Denies: headache, weakness Psychiatric: Reports: as per HPI, other Past Medical History Past Medical History: GERD/Reflux, Osteoarthritis (OA), Seizure Disorder Additional Past Medical History / Comment(s): mitral valve prolapse, last seizure 1999, L inguinal hernia, pancreatitis in 2011 History of Any Multi-Drug Resistant Organisms: MRSA Date of last positivie culture/infection: 11/18/15 MDRO Source:: HEAD Past Surgical History: Orthopedic Surgery Additional Past Surgical History / Comment(s): left humerus ORIF with pins since removed, lanced lymph nodes from left arm Past Anesthesia/Blood Transfusion Reactions: No Reported Reaction Past Psychological History: ADD/ADHD, Anxiety, Depression, Panic Disorder Smoking Status: Former smoker Past Alcohol Use History: Occasional Past Drug Use History: Marijuana - Past Family History Father Family Medical History: Cancer Additional Family Medical History / Comment(s): from Hodgkins lymphoma. He also had prostate cancer. He at 60yrs. Mother Family Medical History: Cancer Additional Family Medical History / Comment(s): at age 57 from lung cancer. She was a smoker. Sister(s) History Unknown: Yes Additional Family Medical History / Comment(s): One sister with no major medical problems. Sister is payee for patient General Exam Limitations: no limitations General appearance: alert, in no apparent distress Head exam: Present: atraumatic, normocephalic Eye exam: Present: normal appearance. Absent: scleral icterus, conjunctival injection ENT exam: Present: normal oropharynx Respiratory exam: Present: normal lung sounds bilaterally. Absent: respiratory distress, wheezes, rales, rhonchi, stridor Cardiovascular Exam: Present: regular rate, normal rhythm, normal heart sounds. Absent: systolic murmur, diastolic murmur, rubs, gallop GI/Abdominal exam: Present: soft. Absent: distended, tenderness, guarding, rebound, rigid Extremities exam: Present: normal inspection, normal capillary refill Back exam: Present: normal inspection. Absent: CVA tenderness (R), CVA tenderness (L) Neurological exam: Present: alert Psychiatric exam: Present: anxious, manic. Absent: depressed, flat affect, homicidal ideation, suicidal ideation Skin exam: Present: warm, dry, intact, normal color. Absent: rash Course Vital Signs 05/04/20 03:51 Temperature 98.7 F Pulse Rate 106 H Respiratory 20 Rate Blood Pressure 158/82 O2 Sat by Pulse 98 Oximetry Medical Decision Making - Lab Data Lab Results 05/04/20 Range/Units 04:16 Urine Opiates Screen Not Detected (NotDetected) Ur Oxycodone Screen Not Detected (NotDetected) Urine Methadone Screen Not Detected (NotDetected) Ur Propoxyphene Screen Not Detected (NotDetected) Ur Barbiturates Screen Not Detected (NotDetected) U Tricyclic Antidepress Not Detected (NotDetected) Ur Phencyclidine Scrn Not Detected (NotDetected) Ur Amphetamines Screen Not Detected (NotDetected) U Methamphetamines Scrn Not Detected (NotDetected) U Benzodiazepines Scrn Not Detected (NotDetected) Urine Cocaine Screen Not Detected (NotDetected) U Marijuana (THC) Screen Detected H (NotDetected) Disposition Clinical Impression: Mood disorder Disposition: ADMITTED IP TO THIS HOSP Condition: Fair Is patient prescribed a controlled substance at d/c from ED?: No Referrals: Alexandra Morris MD [Primary Care Provider] - 1-2 days
[2020-05-04] MEDS ORDERED: MAGNESIUM HYDROXIDE 2,400 MG/10 ML CUP PO PRN (06:14)
[2020-05-04] MEDS ORDERED: ZIPRASIDONE 20 MG VIAL IM PRN (06:14)
[2020-05-04] MEDS ORDERED: LORazepam 2 MG/ML INJ IM PRN (06:18)
[2020-05-04 06:52] LABS: Appearance,Urine Clear (Clear); Bilirubin,Urine Negative (Negative); Blood,Urine Negative (Negative); Color,Urine Light Yellow; Glucose,Urine (UA) Negative (Negative); Ketones,Urine Negative (Negative); Leukocyte Esterase,Urine Negative (Negative); Nitrite,Urine Negative (Negative); PH, Urine 5.5 (5.0-8.0); Protein,Urine Negative (Negative); Specific Gravity,Urine 1.005 (1.001-1.035); Urobilinogen,Urine <2.0 mg/dL (<2.0)
[2020-05-04 07:09] LABS: Basophils # (A) 0.1 k/uL (0-0.2); Basophils % (A) 1 %; Eosinophils # (A) 0.2 k/uL (0-0.7); Eosinophils % (A) 2 %; HCT 42.8 % (39.0-53.0); HGB 13.8 gm/dL (13.0-17.5); Lymphocytes # (A) 1.7 k/uL (1.0-4.8); Lymphocytes % (A) 17 %; MCH 32.3 pg (25.0-35.0); MCHC 32.3 g/dL (31.0-37.0); MCV 99.9 fL (80.0-100.0); Mean Platelet Volume 6.8; Monocytes # (A) 0.6 k/uL (0-1.0); Monocytes % (A) 6 %; Neutrophils # (A) 7.4 k/uL (1.3-7.7); Neutrophils % (A) 74 %; Platelet Count 269 k/uL (150-450); RBC 4.28 m/uL (4.30-5.90); RDW 12.8 % (11.5-15.5)
[2020-05-04 07:24] LABS: ALT 16 U/L (4-49); AST 27 U/L (17-59); African American GFR (CKD) >90 (>60 ml/min/1.73 sqM); Albumin 4.3 g/dL (3.5-5.0); Alkaline Phosphatase 57 U/L (38-126); Anion Gap 7 mmol/L; Bilirubin, Delta 0.3 mg/dL (0.0-0.2); Bilirubin,Unconjugated 0.2 mg/dL (0.0-1.1); Blood Urea Nitrogen 15 mg/dL (9-20); Calcium 9.8 mg/dL (8.4-10.2); Carbon Dioxide 27 mmol/L (22-30); Chloride 103 mmol/L (98-107); Cholesterol 251 mg/dL (<200); Glucose 76 mg/dL (74-99); HDL Cholesterol 51 mg/dL (40-60); LDL Cholesterol,Calculated 177 mg/dL (0-99); Non-African American GFR(CKD) 87 (>60 ml/min/1.73 sqM); Potassium 4.6 mmol/L (3.5-5.1); Sodium 137 mmol/L (137-145); Total Bilirubin 0.5 mg/dL (0.2-1.3); Total Protein 6.9 g/dL (6.3-8.2); Triglycerides 113 mg/dL (<150)
[2020-05-04] MEDS: ACETAMINOPHEN TAB 325 MG TAB PO PRN ×2 (09:31→18:17)
[2020-05-04] MEDS: PANTOPRAZOLE 40 MG TABLET PO SCH (09:31)
[2020-05-04] MEDS: GABAPENTIN 300 MG CAP PO SCH ×4 (09:31→22:24)
[2020-05-04 14:17] LABS: Hemoglobin A1C 5.4 % (4.0-6.0)
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
[2020-05-04] MEDS: LORazepam 1 MG TAB PO PRN (18:17)
--- NOTE | 2020-05-04 21:36 | P.CONS ---
History of Present Illness - History of Present Illness This is a pleasant 50 years old male with past medical history of seizure dis order, fibromyalgia, osteoarhritis , GERD. He was admitted to the mental health unit for more disorder. Medical consult was requested for medical management. Patient complains from generalized body aches including toes and fingers, shoulders, muscles and trunk for long-term and years however patient is mobile and walking freely with no difficulty, has no dyspnea, no coughing, no change in urine or bowel habits. No fever He is hemodynamically stable and attributes were unremarkable including CBC, BMP, liver enzymes, INR and urinalysis and urine drug screen. He denies smoking, alcohol or illicit drugs Review of Systems CONSTITUTIONAL: No fever, no malaise, no fatigue. HEENT: No recent visual problems or hearing problems. Denied any sore throat. CARDIOVASCULAR: No orthopnea, PND, no palpitations, no syncope. PULMONARY: No shortness of breath, no cough, no hemoptysis. GASTROINTESTINAL: No diarrhea, no nausea, no vomiting, no abdominal pain. Normoactive bowel sounds. NEUROLOGICAL: No headaches, no weakness, no numbness. HEMATOLOGICAL: Denies any bleeding or petechiae. GENITOURINARY: Denies any burning micturition, frequency, or urgency. MUSCULOSKELETAL/RHEUMATOLOGICAL: Denies any joint pain, swelling, or any muscle pain. ENDOCRINE: Denies any polyuria or polydipsia. Past Medical History Past Medical History: GERD/Reflux, Osteoarthritis (OA), Seizure Disorder Additional Past Medical History / Comment(s): mitral valve prolapse, last seizure 1999, L inguinal hernia, pancreatitis in 2011 History of Any Multi-Drug Resistant Organisms: MRSA Year Discovered:: 11/18/15 MDRO Source:: HEAD Past Surgical History: Orthopedic Surgery Additional Past Surgical History / Comment(s): left humerus ORIF with pins since removed, lanced lymph nodes from left arm Past Anesthesia/Blood Transfusion Reactions: No Reported Reaction Smoking Status: Former smoker - Past Family History Father Family Medical History: Cancer Additional Family Medical History / Comment(s): from Hodgkins lymphoma. He also had prostate cancer. He at 60yrs. Mother Family Medical History: Cancer Additional Family Medical History / Comment(s): at age 57 from lung cancer. She was a smoker. Sister(s) History Unknown: Yes Additional Family Medical History / Comment(s): One sister with no major medical problems. Sister is payee for patient Medications and Allergies Home Medications Medication Instructions Recorded Confirmed Type Gabapentin [Neurontin] 300 mg PO TID 07/16/19 05/04/20 History Omeprazole [PriLOSEC] 20 mg PO DAILY 07/16/19 05/04/20 History Verapamil HCl [Verapamil ER] 120 mg PO DAILY 07/16/19 05/04/20 History Ondansetron HCl [Zofran] 4 mg PO TID PRN #12 tablet 07/19/19 05/04/20 Rx Ondansetron Odt [Zofran Odt] 4 mg PO Q8HR PRN #14 tab 08/08/19 05/04/20 Rx Allergies Allergy/AdvReac Type Severity Reaction Status Date / Time aspirin AdvReac EARS RING Verified 05/04/20 06:19 diphenhydramine HCl AdvReac Hallucinati Verified 05/04/20 06:19 [From Benadryl] ons Physical Exam Vitals: Vital Signs Temp Pulse Pulse Resp BP BP Pulse Ox 05/04/20 05:54 98.0 F 84 14 142/73 100 05/04/20 03:51 98.7 F 106 H 20 158/82 98 Intake and Output 05/04/20 05/04/20 05/04/20 06:59 14:59 22:59 Other: Weight 61.348 kg GENERAL: The patient is alert and oriented x3, not in any acute distress. Well developed, well nourished. HEENT: Pupils are round and equally reacting to light. EOMI. No scleral icterus. No conjunctival pallor. Normocephalic, atraumatic. No pharyngeal erythema. No thyromegaly. CARDIOVASCULAR: S1 and S2 present. No murmurs, rubs, or gallops. PULMONARY: Chest is clear to auscultation, no wheezing or crackles. ABDOMEN: Soft, nontender, nondistended, normoactive bowel sounds. No palpable organomegaly. MUSCULOSKELETAL: No joint swelling or deformity. EXTREMITIES: No cyanosis, clubbing, or pedal edema. NEUROLOGICAL: Gross neurological examination did not reveal any focal deficits. SKIN: No rashes. No petechiae Results CBC & Chem 7: 05/04/20 06:32 05/04/20 06:32 Labs: Abnormal Lab Results - Last 24 Hours (Table) 05/04/20 05/04/20 05/04/20 Range/Units 04:16 06:32 06:32 RBC 4.28 L (4.30-5.90) m/uL Delta Bilirubin 0.3 H (0.0-0.2) mg/dL Cholesterol 251 H (<200) mg/dL LDL Cholesterol, Calc 177 H (0-99) mg/dL U Marijuana (THC) Screen Detected H (NotDetected) Assessment and Plan Assessment: Assessment and plan: Mood disorder and other psychiatric illnesses, management I team Fibromyalgia, continue with pain management, try to avoid narcotics GERD Seizure disorder Osteoarthritis We recommend patient to follow-up with his primary care doctor within 1 week after discharge, patient was instructed with the same Thank you for consulting us, we will see the patient on as needed basis. Please refer to contact us for any further question or clarification.
[2020-05-05 06:54] VITALS: RESP 16
[2020-05-05] MEDS: LORazepam 1 MG TAB PO PRN ×3 (09:00→23:31)
[2020-05-05] MEDS: GABAPENTIN 300 MG CAP PO SCH ×3 (09:00→21:50)
[2020-05-05] MEDS: ACETAMINOPHEN TAB 325 MG TAB PO PRN ×3 (09:01→20:46)
[2020-05-05] MEDS: PANTOPRAZOLE 40 MG TABLET PO SCH ×2 (09:13→11:06)
[2020-05-05] MEDS: MAG HYDROX/AL HYDROX/SIMETH 30 ML CUP PO PRN ×2 (11:06→20:47)
--- NOTE | 2020-05-05 11:47 | P.PN ---
Progress Note - Text Progress Note Date: 05/05/20 Interval history: Patient was seen taking part in group this morning and was directable and agr eeable to speak with sql report writer. Patient appeared to be more cooperative with sql report writer today however did complain of some irritability and ongoing pain. Patient was fairly preoccupied with pain and getting back to his regular dose of Neurontin 600 mg 3 times a day. Patient was agreeable to start Lamictal today to help with his irritability and mood stabilization. He claims that he is feeling depressed at this time. He states that he has been trying to go to groups. He states that he was able to sleep well last night and has a improving appetite. At this time patient denies any suicidal or homicidal ideations intent or plan. Denies any Auditory or visual hallucinations. Patient denies any side effects from the medications and has been compliant with meds. Mental status exam: General Appearance: Patient appears to be thin, stated age is alert, irritable at times however attempted to be cooperative. Poor hygiene and grooming Behavior: No agitated behavior. Patient is calm and directable irritable at times. Speech: Patient's speech is fluent and nonpressured. Mood/Affect: Mood is depressed, affect is congruent and irritable at times Suicidality/Homicidality: Patient denies having any suicidal or homicidal ideation intent or plan. Perceptions: Patient denies any auditory or visual hallucinations. Though content/process: Focused on his medications. Logical and goal oriented. Memory and concentration: AOX3, grossly intact for the purposes of this session Judgment and insight: Poor, improving mildly Assessment/Plan: Continue with current diagnosis. Patient continues to meet criteria for inpatient psychiatric admission for symptom stabilization and safety.Patient will be maintained on current psychotropic medication regimen, with the exception of increasing patient's Neurontin to 600 mg 3 times a day as this is his outpatient dose for pain. We'll also start patient on Lamictal 25 mg twice a day for irritability/mood stabilization. Monitor for medication compliance and for any psychotropic medication side effects. Will continue to monitor ongoing response to treatment. Encouraged participation in milieu.
[2020-05-05] MEDS: lamoTRIgine 25 MG TAB PO SCH ×2 (12:07→20:45)
[2020-05-06] MEDS: PANTOPRAZOLE 40 MG TABLET PO SCH (09:13)
[2020-05-06] MEDS: GABAPENTIN 300 MG CAP PO SCH ×3 (09:13→21:51)
[2020-05-06] MEDS: lamoTRIgine 25 MG TAB PO SCH ×2 (09:13→21:51)
[2020-05-06] MEDS: LORazepam 1 MG TAB PO PRN ×2 (09:13→16:18)
[2020-05-06] MEDS: MAG HYDROX/AL HYDROX/SIMETH 30 ML CUP PO PRN ×2 (10:57→18:54)
--- NOTE | 2020-05-06 11:09 | P.PN ---
Progress Note - Text Progress Note Date: 05/06/20 Interval history: Patient was seen after receiving his medications this morning and was directable and agreeable to speak with magazine writer. Patient appeared to be more cooperative with magazine writer today. He is continuing to speak about his pain and how it is mildly more manageable today as he has his regular dose of Neurontin back. He continues to claim that he does feel irritable at times and also continues to endorse depression. Injection Mold Technician did speak with patient about the medication options and patient is agreeable to start Cymbalta today. He states that he has been trying to go to groups and interact with other patients and finds that he is a good "listener to their problems". He states that he was able to sleep well last night and has a improving appetite. At this time patient denies any suicidal or homicidal ideations intent or plan. Denies any Auditory or visual hallucinations. Patient denies any side effects from the medications and has been compliant with meds. Mental status exam: General Appearance: Patient appears to be thin, stated age is alert, irritable at times however attempted to be cooperative. Poor hygiene and grooming Behavior: No agitated behavior. Patient is calm and directable irritable at times, mildly improving Speech: Patient's speech is fluent and nonpressured. Mood/Affect: Mood is depressed, affect is congruent and irritable at times, improving mildly Suicidality/Homicidality: Patient denies having any suicidal or homicidal ideation intent or plan. Perceptions: Patient denies any auditory or visual hallucinations. Though content/process: Focused on his medications. Logical and goal oriented. Memory and concentration: AOX3, grossly intact for the purposes of this session Judgment and insight: Poor, improving mildly Assessment/Plan: Continue with current diagnosis. Patient continues to meet criteria for inpatient psychiatric admission for symptom stabilization and safety.Patient will be maintained on current psychotropic medication regimen, with the exception of starting Cymbalta 30 mg daily for mood/anxiety/neuropathic pain. Consider increasing Lamictal tomorrow. Monitor for medication compliance and for any psychotropic medication side effects. Will continue to monitor ongoing response to treatment. Encouraged participation in milieu.
[2020-05-06] MEDS: DULoxetine HCL 30 MG CAPSULE.DR PO SCH (12:02)
[2020-05-07] MEDS: LORazepam 1 MG TAB PO PRN ×3 (06:53→23:04)
[2020-05-07] MEDS: DULoxetine HCL 30 MG CAPSULE.DR PO SCH (09:07)
[2020-05-07] MEDS: GABAPENTIN 300 MG CAP PO SCH (09:07)
[2020-05-07] MEDS: PANTOPRAZOLE 40 MG TABLET PO SCH (09:07)
[2020-05-07] MEDS: lamoTRIgine 25 MG TAB PO SCH ×2 (09:07→21:19)
[2020-05-07] MEDS ORDERED: CYCLOBENZAPRINE 5 MG TAB PO PRN (10:55)
[2020-05-07] MEDS: ONDANSETRON 4 MG TAB PO PRN (12:46)
--- NOTE | 2020-05-07 13:23 | P.PN ---
Progress Note - Text Progress Note Date: 05/07/20 Interval history: Patient was walking in [place] and agreed to follow me to office ,he stated that he suffering from pain and "No one helping me",rates pain 8/10, He states that he was able to sleep well last night he reports that his appetite is fair "I do not have THC and it is only think helping my appetite ,I always have nausea",patient was somatic preoccupied. At this time patient denies any suicidal or homicidal ideations intent or plan. Denies any Auditory or visual hallucinations. Patient denies any side effects from the medications and has been compliant with meds. Mental status exam: General Appearance: Patient appears to be thin, stated age is alert, irritable at times however attempted to be cooperative. Poor hygiene and grooming Behavior: No agitated behavior. Patient is calm and directable irritable at times. Speech: Patient's speech is fluent and nonpressured. Mood/Affect: Mood is depressed, affect is congruent and irritable at times Suicidality/Homicidality: Patient denies having any suicidal or homicidal ideation intent or plan. Perceptions: Patient denies any auditory or visual hallucinations. Though content/process: Focused on his medications. Logical and goal oriented. Memory and concentration: AOX3, grossly intact for the purposes of this session Judgment and insight: Poor, improving mildly Assessment/Plan: Continue with current diagnosis. Patient continues to meet criteria for inpatient psychiatric admission for symptom stabilization and s afety.Patient will be maintained on current psychotropic medication regimen, with the exception of increasing patient's Neurontin to 800 mg 3 times a day as this is his outpatient dose for pain.Increase Cymbalta ,add Zofran prn ,Flexeril prn, continue Lamictal 25 mg twice a day for irritability/mood stabilization. Monitor for medication compliance and for any psychotropic medication side effects. Will continue to monitor ongoing response to treatment. Encouraged participation in milieu.
[2020-05-07] MEDS: GABAPENTIN 400 MG CAP PO SCH ×2 (15:57→21:19)
[2020-05-07] MEDS: CYCLOBENZAPRINE 10 MG TAB PO PRN (23:17)
[2020-05-08] MEDS: GABAPENTIN 400 MG CAP PO SCH ×3 (09:02→21:54)
[2020-05-08] MEDS: DULoxetine HCL 60 MG CAPSULE.DR PO SCH (09:02)
[2020-05-08] MEDS: LORazepam 1 MG TAB PO PRN (09:02)
[2020-05-08] MEDS: lamoTRIgine 25 MG TAB PO SCH ×2 (09:02→21:54)
[2020-05-08] MEDS: PANTOPRAZOLE 40 MG TABLET PO SCH (09:02)
--- NOTE | 2020-05-08 12:55 | P.PN ---
Progress Note - Text Progress Note Date: 05/08/20 Interval history: Patient was walking in [place] and agreed to follow me to office , somatic preoc cupied.,stated that he requested PRN Zofran twice due to severe nausea,stated that his appetite is slightly improved,going to groups however he is still acting out at times ,childlike behavior ,using profanity but less than first day of admission At this time patient denies any suicidal or homicidal ideations intent or plan. Denies any Auditory or visual hallucinations. Patient denies any side effects from the medications and has been compliant with meds. Mental status exam: General Appearance: Patient appears to be thin, stated age is alert, irritable at times however attempted to be cooperative. Poor hygiene and grooming Behavior: No agitated behavior. Patient is calm and directable irritable at times. Speech: Patient's speech is fluent and nonpressured. Mood/Affect: Mood is depressed, affect is congruent and irritable at times Suicidality/Homicidality: Patient denies having any suicidal or homicidal ideation intent or plan. Perceptions: Patient denies any auditory or visual hallucinations. Though content/process: Focused on his medications. Logical and goal oriented. Memory and concentration: AOX3, grossly intact for the purposes of this session Judgment and insight: Poor, improving mildly Assessment/Plan: Continue with current diagnosis. Patient continues to meet criteria for inpatient psychiatric admission for symptom stabilization and safety.Patient will be maintained on current psychotropic medication regimen,with exception increasing Lamictal to stabilize his mood. Monitor for medication compliance and for any psychotropic medication side effects. Will continue to monitor ongoing response to treatment. Encouraged participation in milieu.
[2020-05-08] MEDS: ONDANSETRON 4 MG TAB PO PRN (13:00)
[2020-05-08] MEDS: CYCLOBENZAPRINE 10 MG TAB PO PRN (19:38)
[2020-05-09] MEDS: LORazepam 1 MG TAB PO PRN ×2 (04:46→14:49)
[2020-05-09] MEDS: PANTOPRAZOLE 40 MG TABLET PO SCH (09:08)
[2020-05-09] MEDS: lamoTRIgine 25 MG TAB PO SCH ×2 (09:08→21:03)
[2020-05-09] MEDS: DULoxetine HCL 60 MG CAPSULE.DR PO SCH (09:08)
[2020-05-09] MEDS: GABAPENTIN 400 MG CAP PO SCH ×3 (09:08→21:03)
--- NOTE | 2020-05-09 10:38 | P.PN ---
Progress Note - Text Progress Note Date: 05/09/20 Interval history: Patient was walking in [place] and agreed to follow me to office , somatic preo ccupied.,,stated that his appetite is slightly improved,going to groups however he is still acting out at times ,childlike behavior ,using profanity but less than first day of admission At this time patient denies any suicidal or homicidal ideations intent or plan. Denies any Auditory or visual hallucinations. Patient denies any side effects from the medications and has been compliant with meds. Mental status exam: General Appearance: Patient appears to be thin, stated age is alert, irritable at times however attempted to be cooperative. Poor hygiene and grooming Behavior: No agitated behavior. Patient is calm and directable irritable at times. Speech: Patient's speech is circumstantial but easy to redirect ,loud voice Mood/Affect: Mood is depressed, affect is congruent and irritable at times Suicidality/Homicidality: Patient denies having any suicidal or homicidal ideation intent or plan. Perceptions: Patient denies any auditory or visual hallucinations. Though content/process: Focused on his medications. Logical and goal oriented. Memory and concentration: AOX3, grossly intact for the purposes of this session Judgment and insight: Poor, improving mildly Assessment/Plan: Continue with current diagnosis. Patient continues to meet criteria for inpatient psychiatric admission for symptom stabilization and safety.Patient will be maintained on current psychotropic medication regimen,discussed with him compliance with after care and he verbalized understanding. Monitor for medication compliance and for any psychotropic medication side effects. Will continue to monitor ongoing response to treatment. Encouraged participation in milieu Anticipated discharge tomorrow
[2020-05-09] MEDS: CYCLOBENZAPRINE 10 MG TAB PO PRN ×2 (12:53→21:04)
[2020-05-09] MEDS: ONDANSETRON 4 MG TAB PO PRN (12:53)
[2020-05-09] MEDS: ACETAMINOPHEN TAB 325 MG TAB PO PRN (16:44)
[2020-05-10] MEDS: LORazepam 1 MG TAB PO PRN (06:20)
[2020-05-10 07:13] VITALS: BP 124/76; PULSE 90; TEMP 97.8
[2020-05-10] MEDS: DULoxetine HCL 60 MG CAPSULE.DR PO SCH (09:24)
[2020-05-10] MEDS: GABAPENTIN 400 MG CAP PO SCH (09:24)
[2020-05-10] MEDS: PANTOPRAZOLE 40 MG TABLET PO SCH (09:24)
[2020-05-10] MEDS: lamoTRIgine 25 MG TAB PO SCH (09:24)
--- NOTE | 2020-05-10 10:18 | DS ---
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 DISCHARGE DIAGNOSES: 1. Bipolar disorder II ,depressed 2. Cannabis use disorder. 3. Poor compliance with treatment. 4. Personality disorder. HISTORY OF PRESENT ILLNESS: The patient is 50 years, single male who has public guardian. He presented to the emergency room on voluntary basis complaining of having anger issue, racing thought, severely agitated and getting annoyed by everyone. Patient was focusing about his chronic pain and that no one is listening to him and everyone assumes that he is mentally ill and does not give him anything for his pain. For complete history and physical, please refer to my initial evaluation. HOSPITAL COURSE: Patient was seen by the medical doctor who stated that the patient has gastroesophageal reflex disease with chronic back pain, fibromyalgia, and osteoarthritis. He did recommend to continue the patient on his Zofran as needed and verapamil extended release in addition to the Prilosec and the gabapentin that at the time of admission it was 300 mg 3 times a day for his pain. Initially, patient was severely agitated and I did not see him on my own. homeworker was with me and he did require p.r.n. a couple of times. However, later he was more cooperative and easy to talk with him and he did agree that I will start him on Cymbalta for mood for depression in addition I will increase his gabapentin to 800 three times a day and use it for chronic pain and as mild mood stability. As the patient was still having some mood swing, I did add Lamictal 50 mg twice a day. Patient was able to tolerate this without having any side effect. Patient was taking part in the group. No aggressive behavior. No violent behavior. Very cooperative. However, he was still fairly preoccupied with his chronic pain and fibromyalgia. He stated that his depression is because of his chronic pain. However, the combination of gabapentin and Cymbalta he stated that it is helping him as the pain did drop from 10/10 to 5/10, 10 being the worst. The patient did not have any issues sleeping or appetite. He denied any suicidal or homicidal ideation, intent, or plan. He denied any hallucination. Denied any side effects from the medication and he has been compliant with medication. MENTAL STATUS EXAMINATION: At the time of the discharge, the patient is casually dressed, male who looks his stated age. Poor hygiene and grooming, but there is no agitation or irritability. Very calm and polite. Speech is coherent. Stated mood "much better." Affect is constricted. He denied having any suicidal or homicidal ideation, intent, or plan. He denied any hallucination. He was focusing about his pain and he did agree to follow up with his primary care physician. His memory and concentration are grossly intact. Insight and judgment are improving. DIAGNOSES: 1. Bipolar disorder II ,depressed 2. Cannabis use disorder. 3. Personality disorder. PLAN: Patient was referred to [facility] for followup. Patient was giving 1 week supply of Flexeril 10 mg 3 times a day as needed, Cymbalta 60 mg for 4 week supply, lamotrigine 50 mg twice a day as a mood stabilizer for 30 days, gabapentin 800 mg 3 times a day. I did give him 2 week supply. Patient to continue his Prilosec and verapamil and Zofran as needed. Patient has to follow up with his primary care physician, Dr. Renae Morris. Patient was instructed to avoid any illicit drug use including marijuana. Patient was instructed that if the symptom recur, he can come to the hospital. At that time, patient is not imminent to hurt himself or anyone else. ADDENDUM : patient was upset as I refused to give RX for Ativan stated that he will re-admit himself in couple of days as he has been taking PRN Ativan during this hospitalization ,I have lenghty discussion with him about addiction potential and drug interaction with Neurontin ,he verbalized understanding MMODL / IJN: [id number] / GIOVANI
== END 2020-05-10 14:00 | disposition home or self-care (01) | DRG 885 ==
LOC: EC 03:47 → 3MHU 05:35
PROVIDERS: ADMIT Psychiatry & Neurology Psychiatry; ATTEND Psychiatry & Neurology Psychiatry
DX: F31.81 Bipolar II disorder (principal); G47.00 Insomnia, unspecified; K21.9 Gastro-esophageal reflux disease without esophagitis; M19.90 Unspecified osteoarthritis, unspecified site; G40.909 Epilepsy, unspecified, not intractable, without status epilepticus; I34.1 Nonrheumatic mitral (valve) prolapse; F12.10 Cannabis abuse, uncomplicated; M79.7 Fibromyalgia; G89.29 Other chronic pain; F60.9 Personality disorder, unspecified; F41.0 Panic disorder [episodic paroxysmal anxiety]; Z79.899 Other long term (current) drug therapy; Z88.6 Allergy status to analgesic agent; Z88.8 Allergy status to other drugs, medicaments and biological substances; Z87.891 Personal history of nicotine dependence; Z86.14 Personal history of Methicillin resistant Staphylococcus aureus infection; Z98.890 Other specified postprocedural states; Z80.7 Family history of other malignant neoplasms of lymphoid, hematopoietic and related tissues; Z80.42 Family history of malignant neoplasm of prostate; Z80.1 Family history of malignant neoplasm of trachea, bronchus and lung; Z91.19 Patient's noncompliance with other medical treatment and regimen; Z91.410 Personal history of adult physical and sexual abuse; Z81.8 Family history of other mental and behavioral disorders
CPT/HCPCS: 80053; 80061; 80306; 81003; 82075; 82248; 83036; 84443; 85025; 99285

== ENCOUNTER 2020-05-16 20:50 | Inpatient (IN) | payer MEDICARE, MEDICAID ==
--- NOTE | 2020-05-16 21:19 | ED ---
Psych HPI - General Source: patient Mode of arrival: ambulatory <Jean Carlos Mcpherson - Last Filed: 05/16/20 23:09> <Rafal Murillo - Last Filed: 05/17/20 02:50> - General Chief Complaint: Psychiatric Symptoms Stated Complaint: Mental Health Time Seen by Provider: 05/16/20 21:19 - History of Present Illness Initial Comments: Patient 50-year-old male with previous psychiatric medical history presenting to emergency for psychiatric evaluation. Patient states recently was discharged from the psychiatric floor. Patient states he had an appointment to follow-up with outpatient psychiatry at [facility]. Patient states the point was today but he could not go because he is refusing to take public transportation. Patient states that people are judging him on the bus. Patient states he is also refusing to walk to the facility. He is reporting feeling overwhelmed and has racing thoughts. He denies any suicidal, homicidal thoughts or ideations. (Jean Carlos Mcpherson) - Related Data Home Medications Medication Instructions Recorded Confirmed Omeprazole [PriLOSEC] 20 mg PO DAILY 07/16/19 05/04/20 Verapamil HCl [Verapamil ER] 120 mg PO DAILY 07/16/19 05/04/20 Previous Rx's Medication Instructions Recorded Ondansetron Odt [Zofran ODT] 4 mg PO Q8HR PRN #14 tab 08/08/19 Cyclobenzaprine [Flexeril] 5 mg PO TID PRN 7 Days tab 05/10/20 DULoxetine HCL [Cymbalta] 60 mg PO DAILY 30 Days capsule. 05/10/20 Gabapentin [Neurontin] 800 mg PO TID 14 Days cap 05/10/20 lamoTRIgine [LaMICtal] 50 mg PO BID 30 Days tab 05/10/20 Allergies Allergy/AdvReac Type Severity Reaction Status Date / Time aspirin AdvReac EARS RING Verified 05/16/20 21:15 diphenhydramine HCl AdvReac Hallucinati Verified 05/16/20 21:15 [From Benadryl] ons Review of Systems ROS Other: All systems not noted in ROS Statement are negative. <Jean Carlos Mcpherson - Last Filed: 05/16/20 23:09> ROS Other: All systems not noted in ROS Statement are negative. <Rafal Murillo - Last Filed: 05/17/20 02:50> ROS Statement: Those systems with pertinent positive or pertinent negative responses have been documented in the HPI. Past Medical History Past Medical History: GERD/Reflux, Osteoarthritis (OA), Seizure Disorder Additional Past Medical History / Comment(s): mitral valve prolapse, last seizure 1999, L inguinal hernia, pancreatitis in 2011 History of Any Multi-Drug Resistant Organisms: MRSA Date of last positivie culture/infection: 11/18/15 MDRO Source:: HEAD Past Surgical History: Orthopedic Surgery Additional Past Surgical History / Comment(s): left humerus ORIF with pins since removed, lanced lymph nodes from left arm Past Anesthesia/Blood Transfusion Reactions: No Reported Reaction Past Psychological History: ADD/ADHD, Anxiety, Depression, Panic Disorder Smoking Status: Former smoker Past Alcohol Use History: Occasional Past Drug Use History: Marijuana - Past Family History Father Family Medical History: Cancer Additional Family Medical History / Comment(s): from Hodgkins lymphoma. He also had prostate cancer. He at 60yrs. Mother Family Medical History: Cancer Additional Family Medical History / Comment(s): at age 57 from lung cancer. She was a smoker. Sister(s) History Unknown: Yes Additional Family Medical History / Comment(s): One sister with no major medical problems. Sister is payee for patient <Jean Carlos Mcpherson - Last Filed: 05/16/20 23:09> General Exam Limitations: no limitations General appearance: alert, in no apparent distress, anxious Head exam: Present: atraumatic, normocephalic, normal inspection Eye exam: Present: normal appearance, PERRL, EOMI Pupils: Present: normal accommodation ENT exam: Present: normal exam, normal oropharynx, mucous membranes moist Neck exam: Present: normal inspection, full ROM. Absent: tenderness Respiratory exam: Present: normal lung sounds bilaterally. Absent: respiratory distress, wheezes Cardiovascular Exam: Present: regular rate, normal rhythm, normal heart sounds Extremities exam: Present: normal inspection, full ROM. Absent: tenderness Back exam: Present: normal inspection, full ROM. Absent: tenderness Neurological exam: Present: alert, oriented X3, normal gait Psychiatric exam: Present: normal affect, anxious Skin exam: Present: warm, dry, intact, normal color <Jean Carlos Mcpherson - Last Filed: 05/16/20 23:09> Course <Rafal Murillo - Last Filed: 05/17/20 02:50> Vital Signs 05/16/20 05/17/20 21:11 02:15 Temperature 98.8 F 98.1 F Pulse Rate 102 H 58 L Respiratory 20 16 Rate Blood Pressure 164/88 102/58 O2 Sat by Pulse 98 99 Oximetry - Reevaluation(s) Reevaluation #1: 05/17/20 02:49 Patient is medically clear for psychiatric evaluation (Rafal Murillo) Reevaluation #2: 05/17/20 02:49 Patient seen in vital by psychiatry (Rafal Murillo) Medical Decision Making <Jean Carlos Mcpherson - Last Filed: 05/16/20 23:09> <Rafal Murillo - Last Filed: 05/17/20 02:50> - Medical Decision Making Patient is a 50-year-old with history of anxiety and depression presenting to the emergency department for psychiatric evaluation. Patient recently discharged from the inpatient psychiatric floor and was supposed to follow with outpatient psychiatrist but did not do it today. Physical examination is unremarkable. Patient does appear to be slightly anxious and was given a Xanax. EPS evaluation pending. At this time, patient care will be signed off to . (Jean Carlos Mcpherson) 50 male seen and evaluated psychiatry, patient stable for discharge home, did sign safety plan (Rafal Murillo) - Lab Data Lab Results 05/16/20 Range/Units 22:53 Urine Opiates Screen Not Detected (NotDetected) Ur Oxycodone Screen Not Detected (NotDetected) Urine Methadone Screen Not Detected (NotDetected) Ur Propoxyphene Screen Not Detected (NotDetected) Ur Barbiturates Screen Not Detected (NotDetected) U Tricyclic Antidepress Not Detected (NotDetected) Ur Phencyclidine Scrn Not Detected (NotDetected) Ur Amphetamines Screen Not Detected (NotDetected) U Methamphetamines Scrn Not Detected (NotDetected) U Benzodiazepines Scrn Not Detected (NotDetected) Urine Cocaine Screen Not Detected (NotDetected) U Marijuana (THC) Screen Detected H (NotDetected) Disposition Is patient prescribed a controlled substance at d/c from ED?: No Time of Disposition: 23:11 <Jean Carlos Mcpherson - Last Filed: 05/16/20 23:09> Is patient prescribed a controlled substance at d/c from ED?: No <Rafal Murillo - Last Filed: 05/17/20 02:50> Clinical Impression: Adjustment reaction of adult life, Acute anxiety Disposition: HOME SELF-CARE Condition: Good Instructions (If sedation given, give patient instructions): Anxiety (ED) Referrals: Alexandra Morris MD [Primary Care Provider] - 1-2 days
[2020-05-16] MEDS ORDERED: ALPRAZolam 0.5 MG TAB PO STA (22:25)
[2020-05-16 23:13] LABS: Amphetamine Screen,Urine Not Detected (NotDetected); Barbiturate Screen,Urine Not Detected (NotDetected); Benzodiazepines Screen,Urine Not Detected (NotDetected); Cocaine Screen,Urine Not Detected (NotDetected); Methadone Screen, Urine Not Detected (NotDetected); Opiate Screen,Urine Not Detected (NotDetected); Oxycodone Screen, Urine Not Detected (NotDetected); Phencyclidine Screen,Urine Not Detected (NotDetected); Tricyclic Antidepressant,Urine Not Detected (NotDetected); Urn Cannabinoid Scrn Detected (NotDetected)
[2020-05-17] MEDS ORDERED: MAG HYDROX/AL HYDROX/SIMETH 30 ML CUP PO PRN (04:18)
[2020-05-17] MEDS ORDERED: MAGNESIUM HYDROXIDE 2,400 MG/10 ML CUP PO PRN (04:18)
[2020-05-17] MEDS: GABAPENTIN 400 MG CAP PO SCH ×3 (08:09→21:08)
[2020-05-17] MEDS: NICOTINE 14MG/24HR PATCH TRANSDERM SCH (08:09)
[2020-05-17] MEDS: DULoxetine HCL 60 MG CAPSULE.DR PO SCH (08:09)
[2020-05-17] MEDS: PANTOPRAZOLE 40 MG TABLET PO SCH ×2 (08:10→10:54)
[2020-05-17] MEDS ORDERED: ZIPRASIDONE 20 MG VIAL IM PRN ×3 (09:00→15:26)
[2020-05-17] MEDS ORDERED: lamoTRIgine 25 MG TAB PO SCH (09:00)
[2020-05-17] MEDS ORDERED: ZIPRASIDONE 20 MG VIAL IM ONE (11:10)
[2020-05-17] MEDS ORDERED: WATER FOR INJECTION, STERILE 10 ML IV ONE (11:10)
[2020-05-17] MEDS: hydrOXYzine pamoate 25 MG CAP PO PRN ×2 (11:22→17:25)
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
[2020-05-17] MEDS ORDERED: HALOPERIDOL LACTATE 5 MG/ML 1 ML VIAL IM PRN ×2 (15:26→15:27)
[2020-05-17] MEDS ORDERED: haloperidoL 5 MG TAB PO PRN (15:26)
[2020-05-17] MEDS: CYCLOBENZAPRINE 5 MG TAB PO PRN (16:25)
[2020-05-17] MEDS: OXcarbazepine 300 MG TAB PO SCH ×2 (16:25→21:08)
--- NOTE | 2020-05-17 17:34 | CONS ---
CONSULTATION DATE OF SERVICE: 05/17/2020 The patient refused to be seen today in consultation. MMODL / IJN: [id number] /
[2020-05-17] MEDS: ACETAMINOPHEN TAB 325 MG TAB PO PRN (19:08)
[2020-05-17] MEDS ORDERED: OXcarbazepine 300 MG TAB PO SCH (21:00)
[2020-05-18] MEDS: hydrOXYzine pamoate 25 MG CAP PO PRN ×2 (05:05→17:13)
[2020-05-18] MEDS: NICOTINE 14MG/24HR PATCH TRANSDERM SCH (08:56)
[2020-05-18] MEDS: GABAPENTIN 400 MG CAP PO SCH ×3 (08:58→21:43)
[2020-05-18] MEDS: OXcarbazepine 300 MG TAB PO SCH ×3 (08:58→21:43)
[2020-05-18] MEDS: DULoxetine HCL 60 MG CAPSULE.DR PO SCH (08:58)
[2020-05-18] MEDS: ACETAMINOPHEN TAB 325 MG TAB PO PRN ×2 (08:58→17:12)
--- NOTE | 2020-05-18 09:44 | P.PN ---
Progress Note - Text Progress Note Date: 05/18/20 I reviewed medical records ,did interview patient and case was discussed in treatment team Did require PRN IM [facility] yesterday at noon due to agitation and aggressive behavior Had PRN Vistaril last night Does participate in groups Interval History: Patient was walking in [place] and agreed to follow me to office ,he talked about his acting out episode during AT group and does not want to take responsibility ,no remorse ,blaming everyone for his behavior,stated that he had broken sleep last night ,stated that his anxiety is very high ,low frustration tolerance and easy annoyed "BY OTHER PEOPLE" Mental Status Exam: General Appearance: Patient appears to be stated age is alert, ,cooperative. Patient appears to have fair hygiene Behavior: Patient was seating calmly ,no agitation Speech: Patient's speech is spontaneous coherent ,increased in productivity Mood/Affect: Mood "anxious:" affect is labile Suicidality/Homicidality: denies any suicidal or homicidal ideation Perceptions: denies any hallucintion or delusional thinking Though content/process: circumstatial with loose of association Memory and concentration: grossly intact Judgment and insight: limited Assessment Bipolar II ,mixed ,Cannabis use disorder Anti-social PD Plan: -Patient continues to meet criteria for inpatient psychiatric admission for symptom stabilization and safety.,Continue current medications ,add Seroquel 50 mg HS setting boundaries on his behavior,encourage participation in groups,SW on board for post-discharge plan.
[2020-05-18] MEDS: PANTOPRAZOLE 40 MG TABLET PO SCH (10:48)
[2020-05-18] MEDS: CYCLOBENZAPRINE 5 MG TAB PO PRN ×2 (12:48→21:44)
[2020-05-18 13:08] LABS: Basophils % (A) 1 %; Eosinophils # (A) 0.1 k/uL (0-0.7); Eosinophils % (A) 1 %; HCT 45.3 % (39.0-53.0); HGB 14.8 gm/dL (13.0-17.5); Lymphocytes # (A) 1.6 k/uL (1.0-4.8); Lymphocytes % (A) 21 %; MCH 32.5 pg (25.0-35.0); MCHC 32.7 g/dL (31.0-37.0); MCV 99.7 fL (80.0-100.0); Mean Platelet Volume 6.4; Monocytes # (A) 0.6 k/uL (0-1.0); Monocytes % (A) 7 %; Neutrophils # (A) 5.3 k/uL (1.3-7.7); Neutrophils % (A) 68 %; Platelet Count 322 k/uL (150-450); RBC 4.55 m/uL (4.30-5.90); RDW 12.9 % (11.5-15.5); WBC 7.8 k/uL (3.8-10.6)
[2020-05-18 13:36] LABS: ALT 22 U/L (4-49); AST 31 U/L (17-59); African American GFR (CKD) >90 (>60 ml/min/1.73 sqM); Albumin 4.7 g/dL (3.5-5.0); Alkaline Phosphatase 61 U/L (38-126); Anion Gap 7 mmol/L; Bilirubin, Delta 0.3 mg/dL (0.0-0.2); Bilirubin,Unconjugated 0.1 mg/dL (0.0-1.1); Blood Urea Nitrogen 12 mg/dL (9-20); Calcium 9.8 mg/dL (8.4-10.2); Carbon Dioxide 29 mmol/L (22-30); Chloride 100 mmol/L (98-107); Cholesterol 248 mg/dL (<200); Glucose 103 mg/dL (74-99); HDL Cholesterol 43 mg/dL (40-60); LDL Cholesterol,Calculated 167 mg/dL (0-99); Non-African American GFR(CKD) >90 (>60 ml/min/1.73 sqM); Potassium 4.7 mmol/L (3.5-5.1); Sodium 136 mmol/L (137-145); Total Bilirubin 0.4 mg/dL (0.2-1.3); Total Protein 7.4 g/dL (6.3-8.2); Triglycerides 192 mg/dL (<150)
[2020-05-18] MEDS: QUEtiapine 50 MG TAB PO SCH (21:43)
[2020-05-19] MEDS: ACETAMINOPHEN TAB 325 MG TAB PO PRN ×3 (09:29→22:12)
[2020-05-19] MEDS: OXcarbazepine 300 MG TAB PO SCH ×3 (09:29→21:49)
[2020-05-19] MEDS: hydrOXYzine pamoate 25 MG CAP PO PRN ×2 (09:29→15:13)
[2020-05-19] MEDS: GABAPENTIN 400 MG CAP PO SCH ×3 (09:29→21:48)
[2020-05-19] MEDS: DULoxetine HCL 60 MG CAPSULE.DR PO SCH (09:29)
[2020-05-19] MEDS: PANTOPRAZOLE 40 MG TABLET PO SCH (09:29)
[2020-05-19] MEDS: CYCLOBENZAPRINE 5 MG TAB PO PRN ×2 (11:53→22:11)
--- NOTE | 2020-05-19 17:26 | P.PN ---
Progress Note - Text Progress Note Date: 05/19/20 Subjective: Patient was seen today as a cross coverage for Dr. Diehl. The patient was evaluated, chart reviewed, case discussed with the treatment team. Patient reports good but interrupted sleep because of his roommate last night, and appetite was reported as "fine ". Patient has been going to groups and other unit activities. The patient is compliant with his medications and denies any adverse reactions. Patient reports some anxiety was racing thoughts, but minimizes depression. Denies any suicidal or homicidal ideation. Denies any manic or psychotic symptoms. Reports having some pain swallowing food and relates that to history of fibromyalgia area Objective: Vitals has been reviewed. Mental status examination; Appearance: The patient appears stated age, adequately groomed and dressed, no specific features. Gait/posture: Normal gait, Normal arm swinging: No abnormal movements. Attitude and behavior: engaged, cooperative, fair eye contact. Motor activity: Normal psychomotor activity Speech: Normal rate, tone. Mood: Anxious, depressed Affect: Constricted Thought form: goal-directed, linear, coherent. Thought content: Non-delusional, denies suicidal thoughts, denies homicidal thoughts, denies intentions or plans. Perception: Denies any auditory or visual hallucinations Attention: No impairment. Orientation: Patient patient was fully oriented to time place person and situation. Insight: Patient has fair insight about his psychiatric disorder. Judgment: Patient has fair judgment about his psychiatric treatment. Assessment: Bipolar 2 disorder. Cannabis use disorder. Antisocial personality disorder Plan: Continue inpatient level of care due to need for further stabilization Precautions: Continue 15 minutes check for safety. Consider medical consultation if any acute medical issues arise. Provide the patient individual, group therapy, substance use disorder counseling to give better insight and learn coping skills. Medications: And Cymbalta 60 mg daily for depression and anxiety. Neurontin 800 mg 3 times a day before and anxiety. Trileptal 300 mg 3 times a day daily for mood stabilization. Seroquel 50 mg at bedtime to help with mood stabilization and insomnia. Continue as needed medications for psychiatric emergencies including psychosis, agitation and anxiety. Continue non-psychiatric medications for medical conditions as recommended by the medical team. Discharge patient to OUTPATIENT services upon a stabilization
[2020-05-19] MEDS: QUEtiapine 50 MG TAB PO SCH (21:49)
[2020-05-20] MEDS: ACETAMINOPHEN TAB 325 MG TAB PO PRN ×2 (07:36→16:44)
[2020-05-20] MEDS: OXcarbazepine 300 MG TAB PO SCH ×3 (07:37→21:23)
[2020-05-20] MEDS: GABAPENTIN 400 MG CAP PO SCH ×3 (07:37→21:23)
[2020-05-20] MEDS: DULoxetine HCL 60 MG CAPSULE.DR PO SCH (07:37)
[2020-05-20] MEDS: PANTOPRAZOLE 40 MG TABLET PO SCH (07:37)
[2020-05-20] MEDS: CYCLOBENZAPRINE 5 MG TAB PO PRN ×3 (09:03→23:26)
[2020-05-20] MEDS: ONDANSETRON 4 MG TAB PO PRN (11:35)
[2020-05-20 13:17] VITALS: BMI 19.7
--- NOTE | 2020-05-20 14:26 | P.PN ---
Progress Note - Text Progress Note Date: 05/20/20 Subjective: Patient was seen today as a cross coverage for Dr. Diehl. The patient was evaluated, chart reviewed, case discussed with the treatment team. Patient continues to report good sleep and fair appetite. He attends some groups, and he continues to take his psychiatric medications with no side effects reported. Continues to report some pain while swallowing which he relates to fibromyalgia. Denies feeling depressed, hopeless or suicidal. Denies any hallucinations, paranoid ideation or delusions. No manic symptoms reported or noticed. Today, he reports feeling more pain in his body which is related to fibromyalgia. He is currently on Neurontin, Tylenol as needed, and a muscle relaxant. Objective: Vitals has been reviewed. Mental status examination; Appearance: The patient appears stated age, adequately groomed and dressed, no specific features. Gait/posture: Normal gait, Normal arm swinging: No abnormal movements. Attitude and behavior: engaged, cooperative, fair eye contact. Motor activity: Normal psychomotor activity Speech: Normal rate, tone. Mood: Less depressed Affect: Constricted Thought form: goal-directed, linear, coherent. Thought content: Non-delusional, denies suicidal thoughts, denies homicidal thoughts, denies intentions or plans. Perception: Denies any auditory or visual hallucinations Attention: No impairment. Orientation: Patient patient was fully oriented to time place person and situation. Insight: Patient has fair insight about his psychiatric disorder. Judgment: Patient has fair judgment about his psychiatric treatment. Assessment: Bipolar 2 disorder. Cannabis use disorder. Antisocial personality disorder Plan: Continue inpatient level of care due to need for further stabilization Precautions: Continue 15 minutes check for safety. Consider medical consultation if any acute medical issues arise. Provide the patient individual, group therapy, substance use disorder counseling to give better insight and learn coping skills. Medications: And Cymbalta 60 mg daily for depression and anxiety. Neurontin 800 mg 3 times a day before and anxiety. Trileptal 300 mg 3 times a day daily for mood stabilization. Seroquel 50 mg at bedtime to help with mood stabilization and insomnia. Continue as needed medications for psychiatric emergencies including psychosis, agitation and anxiety. Continue non-psychiatric medications for medical conditions as recommended by the medical team. Discharge patient to OUTPATIENT services upon a stabilization
[2020-05-20] MEDS: hydrOXYzine pamoate 25 MG CAP PO PRN ×2 (16:19→21:24)
[2020-05-20] MEDS: QUEtiapine 50 MG TAB PO SCH (21:23)
--- NOTE | 2020-05-21 08:20 | P.PN ---
Progress Note - Text Progress Note Date: 05/21/20 I reviewed medical records ,did interview patient and case was discussed in treatment team No aggressive behavior on weekend Had PRN Vistaril last night Does participate in groups TODAY VITALS:Temp:97.6,P:67,R:18,BP:122/58 Interval History: Patient was walking in [place] and agreed to follow me to office ,he talked about his fibromyalgia and he had restless sleep last night due to pain,stated that he does not want to take Seroquel "I just took it one day and I had bad hungover next day",stated that he was able to contact his guardian so he can call landlord to fix his window "I do not want to talk to this landlord ,he is stubborn and has bad attitude',denies any appetite problem Mental Status Exam: General Appearance: Patient appears to be stated age is alert, ,cooperative. Patient appears to have fair hygiene Behavior: Patient was seating calmly ,no agitation Speech: Patient's speech is spontaneous coherent ,increased in productivity Mood/Affect: Mood "anxious:" affect is labile Suicidality/Homicidality: denies any suicidal or homicidal ideation Perceptions: denies any hallucintion or delusional thinking Though content/process: circumstatial with loose of association Memory and concentration: grossly intact Judgment and insight: limited Assessment Bipolar II ,mixed ,Cannabis use disorder Anti-social PD Plan: -Patient continues to meet criteria for inpatient psychiatric admission for symptom stabilization and safety.,Continue current medications ,d/c Seroquel ,setting boundaries on his behavior,encourage participation in groups,SW on board for post-discharge plan.
[2020-05-21] MEDS: GABAPENTIN 400 MG CAP PO SCH ×3 (09:13→21:55)
[2020-05-21] MEDS: DULoxetine HCL 60 MG CAPSULE.DR PO SCH (09:13)
[2020-05-21] MEDS: OXcarbazepine 300 MG TAB PO SCH ×3 (09:14→21:27)
[2020-05-21] MEDS: ACETAMINOPHEN TAB 325 MG TAB PO PRN ×2 (09:14→22:35)
[2020-05-21] MEDS: PANTOPRAZOLE 40 MG TABLET PO SCH (10:52)
[2020-05-21] MEDS: CYCLOBENZAPRINE 5 MG TAB PO PRN ×2 (12:13→22:35)
[2020-05-21] MEDS: ONDANSETRON 4 MG TAB PO PRN (15:08)
[2020-05-22] MEDS: hydrOXYzine pamoate 25 MG CAP PO PRN ×2 (06:47→19:19)
--- NOTE | 2020-05-22 09:08 | P.PN ---
Progress Note - Text Progress Note Date: 05/22/20 I reviewed medical records ,did interview patient and case was discussed in treatment team No aggressive behavior ,had PRN Zofran ,Flexeril and Vistaril over last 24 hours Does participate in groups Interval History: Patient was walking in [place] and agreed to follow me to office ,he talked about "Someone has to contact my guardian ,I do not feel ready to go home",he slept 7 hours,very demanding but easy to redirect,no appetite issue ,does interact with other,very somatic preoccupied and focussing about his fibromyalgia Mental Status Exam: General Appearance: Patient appears to be stated age is alert, ,cooperative. Patient appears to have fair hygiene Behavior: Patient was seating calmly ,no agitation Speech: Patient's speech is spontaneous coherent ,increased in productivity Mood/Affect: Mood "anxious:" affect is labile Suicidality/Homicidality: denies any suicidal or homicidal ideation Perceptions: denies any hallucintion or delusional thinking Though content/process: circumstatial with loose of association Memory and concentration: grossly intact Judgment and insight: limited Assessment Bipolar II ,mixed ,Cannabis use disorder Anti-social PD Plan: -Patient continues to meet criteria for inpatient psychiatric admission for symptom stabilization and safety.,Continue current medications ,,setting boundaries on his behavior,encourage participation in groups,SW on board for post-discharge plan.
[2020-05-22] MEDS: DULoxetine HCL 60 MG CAPSULE.DR PO SCH (09:44)
[2020-05-22] MEDS: OXcarbazepine 300 MG TAB PO SCH ×3 (09:44→21:24)
[2020-05-22] MEDS: GABAPENTIN 400 MG CAP PO SCH ×3 (09:44→21:24)
[2020-05-22] MEDS: PANTOPRAZOLE 40 MG TABLET PO SCH (12:01)
[2020-05-22] MEDS: ACETAMINOPHEN TAB 325 MG TAB PO PRN (16:34)
[2020-05-23 06:53] VITALS: BP 117/70; PULSE 72; RESP 16; TEMP 97.4
[2020-05-23] MEDS: ACETAMINOPHEN TAB 325 MG TAB PO PRN (08:51)
[2020-05-23] MEDS: GABAPENTIN 400 MG CAP PO SCH (08:52)
[2020-05-23] MEDS: DULoxetine HCL 60 MG CAPSULE.DR PO SCH (08:52)
[2020-05-23] MEDS: OXcarbazepine 300 MG TAB PO SCH (08:52)
[2020-05-23] MEDS: CYCLOBENZAPRINE 5 MG TAB PO PRN (09:10)
--- NOTE | 2020-05-23 11:04 | DS ---
DISCHARGE SUMMARY DATE OF ADMISSION: 05/16/2020 DATE OF DISCHARGE: 05/23/2020 IGNITION EXPERT: Dr. Néstor Ramirez for H and P and medical management. DISCHARGE DIAGNOSES: 1. Bipolar disorder type 2, mixed. 2. Cannabis use disorder. 3. Poor compliance with treatment. 4. Zero 5 personality disorder. HISTORY OF PRESENT ILLNESS: The patient is 50 years single male who has public guardian and he is currently on social security disability, who did present to the emergency room with feeling overwhelmed with anxiety, racing thoughts, and chronic pain. The patient was discharged from my care on May 10, but he did not follow up with the outpatient appointment at [facility]. He stated that he could not use public transportation and even he refused to walk to the facility, but he was able to come here to the emergency room complaining of having high anxiety, stated that he has been not showering for 1 week, isolating himself and not able to concentrate or function or focus because "having very bad attention deficit." For complete psych evaluation, please refer to my dictation on May 17, 2020. HOSPITAL COURSE: The patient was admitted on voluntary basis. He did sign medication consent. I did put him back on his medication for his chronic pain for fibromyalgia that including Cymbalta and Neurontin, Cymbalta 60 mg and Neurontin 800 three times a day and I told him that I will not give him any p.r.n. Ativan. If he is anxious, he will have Vistaril. Patient did get very agitated after I saw him for evaluation and he did require IM Vistaril and Geodon. During team treatment, I did discuss that we need to set boundary on his behavior as it seems to me that his more behavior and attention seeking. After this episode, patient was more compliant, easy to redirect and I did start him on mood stabilizer, Trileptal, and I titrated the dose to 300 three times a day. I did discuss with him to put him on Seroquel to help his sleep and even to help his mood. He took only 1 dose and he stated that he does not like it as "I have a very bad hangover." During one-to-one patient was very somatic and preoccupied about his fibromyalgia and chronic pain and that no physician can listen to him for this pain, so as I mentioned, Dr. Ramirez was consulted and he came on 05/17 but the patient refused to see him, stated "if I don't get something for my pain, why do I have to see him." Patient always complaining of having nausea and he did request to have p.r.n. Zofran. In addition he did ask to have Flexeril p.r.n. After his anger outburst on 05/17, patient was on even keel, still very demanding as he did more than once demanding us to contact his guardian because "I need to move to a different apartment." Our social work job titles did contact his public guardian, who stated that the patient has to be on waiting list to find low-income housing for him. For the last couple of days prior to his discharge, he was able to sleep between 5-6 hour without having any complaint. His appetite has been improving and he is eating all his meal. He was attending every group and since his first day of admission, he denied any suicidal or homicidal ideation, and he denied any auditory or visual hallucination. I did discuss with him compliance with the medication as prescribed and to abstain from marijuana as he has been using marijuana on a daily basis. Patient did verbalize understanding and his insight and judgment are improving. On the day of the discharge, patient denied any suicidal or homicidal ideation, intent, or plan. He denied any auditory or visual hallucination. Patient denied any access to gun or weapon. Denied any paranoia. He is still very somatic, preoccupied, especially with this fibromyalgia and chronic pain. He did agree to follow up with his primary care physician regarding medical management of his fibromyalgia. We were able to contact [facility] so they can secure a ride for him for his intake appointment at [facility] as his excuse that he cannot use public transportation. The patient was also counseled on the medication and the need of regular compliance and was encouraged to be compliant with followup outpatient for mental health and also for his primary care. MENTAL STATUS EXAMINATION: The patient appears older than stated age. Fair grooming. Alert, easy to redirect. There is no acute agitation. Speech is coherent. His voice is loud. At times, he gets circumstantial but easy to redirect to the topic. He reported that his mood is "anxious" but his affect is blunted. He denied having any suicidal or homicidal ideation, intent, or plan. He denied any auditory or visual hallucination. There is no evidence of delusional thinking. He is alert, oriented x3. Insight and judgment are improving with guarded prognosis due to his personality disorder and poor compliance. IMPRESSION: 1. Bipolar disorder type 2, poor compliance with outpatient. 2. Cannabis use disorder. 3. Personality disorder. 4. History of chronic pain, fibromyalgia, and gastroesophageal reflux disease. PLAN: Patient will be discharged today as he improved since his admission. Patient is not an imminent threat to hurt himself or other. Patient was discharged on Cymbalta 60 mg daily for pain, gabapentin 800 three times a day. I did give him only 2 weeks and he needs to follow up with his primary care physician. Flexeril 5 mg 3 times a day and give him 1 week supply with followup with his primary care physician. Trileptal 300 mg 3 times a day for 2 weeks. Patient to continue his Protonix prescribed by his primary care physician. Also, in addition, I did give him Vistaril 25 every 6 hours p.r.n. for anxiety. I had a lengthy discussion with him about habit-forming medication and to avoid any sedative hypnotic. Patient did verbalize understanding. We did contact the public guardian and [facility] to ensure that there is followup appointment. The patient will be discharged to [facility] outpatient. Prognosis guarded. MMCARLENE / JESUS: [id number] /
[2020-05-23] MEDS: PANTOPRAZOLE 40 MG TABLET PO SCH (12:05)
== END 2020-05-23 12:09 | disposition home or self-care (01) | DRG 885 ==
LOC: EC 20:50 → 3MHU 05-17 03:54
PROVIDERS: ADMIT Psychiatry & Neurology Psychiatry; ATTEND Psychiatry & Neurology Psychiatry
DX: F31.81 Bipolar II disorder (principal); M19.90 Unspecified osteoarthritis, unspecified site; K21.9 Gastro-esophageal reflux disease without esophagitis; F41.0 Panic disorder [episodic paroxysmal anxiety]; F43.20 Adjustment disorder, unspecified; G40.909 Epilepsy, unspecified, not intractable, without status epilepticus; M79.7 Fibromyalgia; G89.29 Other chronic pain; F90.9 Attention-deficit hyperactivity disorder, unspecified type; F12.10 Cannabis abuse, uncomplicated; F45.22 Body dysmorphic disorder; F60.2 Antisocial personality disorder; I34.1 Nonrheumatic mitral (valve) prolapse; Z79.899 Other long term (current) drug therapy; Z88.6 Allergy status to analgesic agent; Z88.8 Allergy status to other drugs, medicaments and biological substances; Z86.14 Personal history of Methicillin resistant Staphylococcus aureus infection; Z98.890 Other specified postprocedural states; Z80.1 Family history of malignant neoplasm of trachea, bronchus and lung; Z80.42 Family history of malignant neoplasm of prostate; Z80.7 Family history of other malignant neoplasms of lymphoid, hematopoietic and related tissues; Z87.891 Personal history of nicotine dependence; Z91.410 Personal history of adult physical and sexual abuse; Z81.8 Family history of other mental and behavioral disorders; Z91.19 Patient's noncompliance with other medical treatment and regimen; Z81.3 Family history of other psychoactive substance abuse and dependence
CPT/HCPCS: 80053; 80061; 80306; 82248; 84443; 85025; 99284

== ENCOUNTER 2021-08-19 10:06 | Emergency (ER) | payer MEDICARE, OTHER ==
[2021-08-19 10:15] VITALS: BP 186/153; PULSE 107; RESP 18; TEMP 97.6
[2021-08-19] MEDS ORDERED: SODIUM CHLORIDE 0.9% 1,000 ML IV STA (10:33)
[2021-08-19] MEDS ORDERED: ONDANSETRON 4 MG/2 ML VIAL IVP STA (10:33)
[2021-08-19] MEDS ORDERED: MORPHINE SULFATE 4 MG/ML SYRINGE IV STA (10:33)
--- NOTE | 2021-08-19 10:49 | ED ---
General Adult HPI - General Chief complaint: Nausea/Vomiting/Diarrhea Stated complaint: nausea, vomiting Time Seen by Provider: 08/19/21 10:08 Source: patient, RN notes reviewed, old records reviewed Mode of arrival: EMS Limitations: no limitations - History of Present Illness Initial comments: 51-year-old male presenting with chief complaint of nausea vomiting. History is limited due to active vomiting. He does report some mild abdominal discomfort. He apparently the patient had been at outside hospital over the past 2 days. History is limited, but patient states that this has happened to him multiple times in the past. No chest pain. No fever. - Related Data Home Medications Medication Instructions Recorded Confirmed Omeprazole [PriLOSEC] 20 mg PO DAILY 07/16/19 05/23/20 Verapamil HCl [Verapamil ER] 120 mg PO DAILY 07/16/19 05/23/20 Previous Rx's Medication Instructions Recorded Ondansetron Odt [Zofran ODT] 4 mg PO Q8HR PRN #14 tab 08/08/19 Cyclobenzaprine [Flexeril] 5 mg PO TID PRN 7 Days tab 05/23/20 DULoxetine HCL [Cymbalta] 60 mg PO DAILY 30 Days capsule. 05/23/20 Gabapentin [Neurontin] 800 mg PO TID 14 Days cap 05/23/20 OXcarbazepine [Trileptal] 300 mg PO TID 30 Days tab 05/23/20 hydrOXYzine pamoate [Vistaril] 25 mg PO Q6HR PRN #30 cap 05/23/20 Allergies Allergy/AdvReac Type Severity Reaction Status Date / Time aspirin AdvReac EARS RING Verified 08/19/21 10:15 diphenhydramine HCl AdvReac Hallucinati Verified 08/19/21 10:15 [From Benadryl] ons Review of Systems ROS Statement: Those systems with pertinent positive or pertinent negative responses have been documented in the HPI. ROS Other: All systems not noted in ROS Statement are negative. Past Medical History Past Medical History: GERD/Reflux, Osteoarthritis (OA), Seizure Disorder Additional Past Medical History / Comment(s): mitral valve prolapse, last seizure 1999, L inguinal hernia, pancreatitis in 2011 History of Any Multi-Drug Resistant Organisms: MRSA Date of last positivie culture/infection: 11/18/15 MDRO Source:: HEAD Past Surgical History: Orthopedic Surgery Additional Past Surgical History / Comment(s): left humerus ORIF with pins since removed, lanced lymph nodes from left arm Past Anesthesia/Blood Transfusion Reactions: No Reported Reaction Past Psychological History: ADD/ADHD, Anxiety, Depression, Panic Disorder Smoking Status: Former smoker Past Alcohol Use History: None Reported Past Drug Use History: Marijuana - Past Family History Father Family Medical History: Cancer Additional Family Medical History / Comment(s): from Hodgkins lymphoma. He also had prostate cancer. He at 60yrs. Mother Family Medical History: Cancer Additional Family Medical History / Comment(s): at age 57 from lung cancer. She was a smoker. Sister(s) History Unknown: Yes Additional Family Medical History / Comment(s): One sister with no major medical problems. Sister is payee for patient General Exam Limitations: no limitations General appearance: alert, in distress Head exam: Present: atraumatic, normocephalic Eye exam: Present: normal appearance, PERRL ENT exam: Present: mucous membranes dry Neck exam: Present: normal inspection. Absent: tenderness, meningismus Respiratory exam: Present: normal lung sounds bilaterally. Absent: respiratory distress, wheezes Cardiovascular Exam: Present: normal rhythm, tachycardia GI/Abdominal exam: Present: soft. Absent: distended, tenderness, guarding Neurological exam: Present: alert, oriented X3, CN II-XII intact. Absent: motor sensory deficit Psychiatric exam: Present: anxious Skin exam: Present: warm, dry, intact. Absent: cyanosis, diaphoretic Course Vital Signs 08/19/21 10:08 Temperature 97.6 F Pulse Rate 107 H Respiratory 18 Rate Blood Pressure 186/153 O2 Sat by Pulse 98 Oximetry EKG Findings - EKG Comments: EKG Findings:: EKG: Sinus tachycardia, rate of 121, CO interval 126, QRS duration 82, QTC [address] segment elevation. Tremor artifact. Medical Decision Making - Medical Decision Making 51-year-old male with nausea vomiting and abdominal discomfort. Patient given symptom treatment while workup was initiated. He has normal CBC, normal CMP. I did review the medical record from [facility] where he was seen with the same symptoms 2 days ago. He had an x-ray at that time. CT was offered but not performed. CT performed today while the emergency department which shows some fluid levels within the bowel. No acute findings. Patient has a normal CBC, normal CMP, 2+ ketones in the urine. After fluids and symptomatic treatment the patient is feeling much better. Symptoms have all. I did advise return parameters. He will try to maintain oral hydration. - Lab Data Result diagrams: 08/19/21 10:14 08/19/21 10:14 Lab Results 08/19/21 08/19/21 08/19/21 Range/Units 10:14 10:14 10:14 WBC 9.6 (3.8-10.6) k/uL RBC 5.17 (4.30-5.90) m/uL Hgb 16.2 (13.0-17.5) gm/dL Hct 48.7 (39.0-53.0) % MCV 94.2 (80.0-100.0) fL MCH 31.3 (25.0-35.0) pg MCHC 33.2 (31.0-37.0) g/dL RDW 13.3 (11.5-15.5) % Plt Count 484 H (150-450) k/uL MPV 6.6 Neutrophils % 59 % Lymphocytes % 28 % Monocytes % 8 % Eosinophils % 1 % Basophils % 1 % Neutrophils # 5.7 (1.3-7.7) k/uL Lymphocytes # 2.6 (1.0-4.8) k/uL Monocytes # 0.8 (0-1.0) k/uL Eosinophils # 0.1 (0-0.7) k/uL Basophils # 0.1 (0-0.2) k/uL Sodium 135 L (137-145) mmol/L Potassium 4.0 (3.5-5.1) mmol/L Chloride 99 (98-107) mmol/L Carbon Dioxide 16 L (22-30) mmol/L Anion Gap 20 mmol/L BUN 16 (9-20) mg/dL Creatinine 1.09 (0.66-1.25) mg/dL Est GFR (CKD-EPI)AfAm >90 (>60 ml/min/1.73 sqM) Est GFR (CKD-EPI)NonAf 78 (>60 ml/min/1.73 sqM) Glucose 137 H (74-99) mg/dL Calcium 9.9 (8.4-10.2) mg/dL Total Bilirubin 0.6 (0.2-1.3) mg/dL AST 41 (17-59) U/L ALT 32 (4-49) U/L Alkaline Phosphatase 104 (38-126) U/L Troponin I 0.014 (0.000-0.034) ng/mL Total Protein 7.9 (6.3-8.2) g/dL Albumin 4.7 (3.5-5.0) g/dL Lipase 107 (23-300) U/L Urine Color Urine Appearance (Clear) Urine pH (5.0-8.0) Ur Specific [place] (1.001-1.035) Urine Protein (Negative) Urine Glucose (UA) (Negative) Urine Ketones (Negative) Urine Blood (Negative) Urine Nitrite (Negative) Urine Bilirubin (Negative) Urine Urobilinogen (<2.0) mg/dL Ur Leukocyte Esterase (Negative) 08/19/21 Range/Units 12:37 WBC (3.8-10.6) k/uL RBC (4.30-5.90) m/uL Hgb (13.0-17.5) gm/dL Hct (39.0-53.0) % MCV (80.0-100.0) fL MCH (25.0-35.0) pg MCHC (31.0-37.0) g/dL RDW (11.5-15.5) % Plt Count (150-450) k/uL MPV Neutrophils % % Lymphocytes % % Monocytes % % Eosinophils % % Basophils % % Neutrophils # (1.3-7.7) k/uL Lymphocytes # (1.0-4.8) k/uL Monocytes # (0-1.0) k/uL Eosinophils # (0-0.7) k/uL Basophils # (0-0.2) k/uL Sodium (137-145) mmol/L Potassium (3.5-5.1) mmol/L Chloride (98-107) mmol/L Carbon Dioxide (22-30) mmol/L Anion Gap mmol/L BUN (9-20) mg/dL Creatinine (0.66-1.25) mg/dL Est GFR (CKD-EPI)AfAm (>60 ml/min/1.73 sqM) Est GFR (CKD-EPI)NonAf (>60 ml/min/1.73 sqM) Glucose (74-99) mg/dL Calcium (8.4-10.2) mg/dL Total Bilirubin (0.2-1.3) mg/dL AST (17-59) U/L ALT (4-49) U/L Alkaline Phosphatase (38-126) U/L Troponin I (0.000-0.034) ng/mL Total Protein (6.3-8.2) g/dL Albumin (3.5-5.0) g/dL Lipase (23-300) U/L Urine Color Yellow Urine Appearance Clear (Clear) Urine pH 6.5 (5.0-8.0) Ur Specific [place] 1.022 (1.001-1.035) Urine Protein Negative (Negative) Urine Glucose (UA) Negative (Negative) Urine Ketones 2+ H (Negative) Urine Blood Negative (Negative) Urine Nitrite Negative (Negative) Urine Bilirubin Negative (Negative) Urine Urobilinogen <2.0 (<2.0) mg/dL Ur Leukocyte Esterase Negative (Negative) Disposition Clinical Impression: Nausea & vomiting Disposition: HOME SELF-CARE Condition: Fair Instructions (If sedation given, give patient instructions): Acute Nausea and Vomiting (ED) Is patient prescribed a controlled substance at d/c from ED?: No Referrals: Luz Elena Quinteros MD [Primary Care Provider] - 1-2 days Time of Disposition: 13:47
[2021-08-19 11:21] LABS: Chloride 99 mmol/L (98-107)
[2021-08-19 11:23] LABS: AST 41 U/L (17-59); African American GFR (CKD) >90 (>60 ml/min/1.73 sqM); Albumin 4.7 g/dL (3.5-5.0); Alkaline Phosphatase 104 U/L (38-126); Anion Gap 20 mmol/L; Blood Urea Nitrogen 16 mg/dL (9-20); Calcium 9.9 mg/dL (8.4-10.2); Carbon Dioxide 16 mmol/L (22-30); Glucose 137 mg/dL (74-99); Lipase 107 U/L (23-300); Non-African American GFR(CKD) 78 (>60 ml/min/1.73 sqM); Sodium 135 mmol/L (137-145); Total Bilirubin 0.6 mg/dL (0.2-1.3); Total Protein 7.9 g/dL (6.3-8.2)
[2021-08-19 11:30] LABS: Basophils # (A) 0.1 k/uL (0-0.2); Basophils % (A) 1 %; Eosinophils # (A) 0.1 k/uL (0-0.7); Eosinophils % (A) 1 %; HCT 48.7 % (39.0-53.0); HGB 16.2 gm/dL (13.0-17.5); Lymphocytes # (A) 2.6 k/uL (1.0-4.8); Lymphocytes % (A) 28 %; MCH 31.3 pg (25.0-35.0); MCHC 33.2 g/dL (31.0-37.0); MCV 94.2 fL (80.0-100.0); Mean Platelet Volume 6.6; Monocytes # (A) 0.8 k/uL (0-1.0); Monocytes % (A) 8 %; Neutrophils # (A) 5.7 k/uL (1.3-7.7); Neutrophils % (A) 59 %; Platelet Count 484 k/uL (150-450); RBC 5.17 m/uL (4.30-5.90); RDW 13.3 % (11.5-15.5); WBC 9.6 k/uL (3.8-10.6)
[2021-08-19 11:32] LABS: ALT 32 U/L (4-49)
[2021-08-19] MEDS ORDERED: MAG HYDROX/AL HYDROX/SIMETH 30 ML, HYOSCYAMINE ELIXIR 10 ML, LIDOCAINE VISCOUS 2% 10 ML PO STA ×3 (11:52)
[2021-08-19] MEDS ORDERED: PANTOPRAZOLE 40 MG/10 ML VIAL IVP STA (11:52)
--- NOTE | 2021-08-19 11:56 | XR ---
EXAMINATION TYPE: XR KUB DATE OF EXAM: 08/19/2021 Comparison: None Clinical History: 51-year-old male pain Findings: Mild scattered stool. Lung bases are clear. Supine imaging limited for assessment of free air. No dilated small bowel loops. No suspicious calcifications. Impression: Mild stool burden. Nonobstructive bowel gas pattern.
--- NOTE | 2021-08-19 12:49 | CT ---
EXAMINATION TYPE: CT abdomen pelvis w con DATE OF EXAM: 08/19/2021 COMPARISON: 08/08/2019 HISTORY: 51-year-old male abdominal pain, nausea and vomiting TECHNIQUE: Contiguous axial scanning of the abdomen and pelvis following administration of 100 ml Iso krupa 300 IV contrast. Delayed images through the kidneys and coronal/sagittal reconstructions perform ed. CT DLP: 928 mGycm Automated exposure control for dose reduction was used. FINDINGS: Heart normal size without pericardial effusion. Lung bases clear without pleural effusion. A couple tiny hypodense lesions within the liver too small for accurate CT characterization measuring up to 6 mm, unchanged from 2019 symphysis in a couple benign cyst. No biliary ductal dilatation. Portal venous system is patent. Gallbladder, adrenal glands, left kidney, and pancreas within normal limits. Small hiatal hernia. Mild fold thickening suggested along the gastric fundus and body. Some scattered fluid-filled small bowel loops in the mid abdomen and with stool within the cecum. No dilated small bowel, free fluid, or free air. No mesenteric or retroperitoneal lymphadenopathy. Mild to moderate overall stool burden. Mildly redundant sigmoid colon. No pericolonic inflammatory ch chad. Normal appendix. Bladder distended. Prostate gland measures 3.7 cm wide. No abnormal fluid collection in the pelvis or pelvic lymphadenopathy. Bones: Stable bone islands within the right iliac bone. Left L5 pars defect unchanged from 2019. IMPRESSION: 1. SOME PROMINENT FLUID-FILLED SMALL BOWEL LOOPS IN THE MID ABDOMEN AND LIQUID STOOL IN THE CECUM. TH ERE IS ALSO SOME MILD FOLD THICKENING ALONG THE GASTRIC FUNDUS AND BODY. CONSIDER A GASTROENTERITIS. 2. SMALL HIATAL HERNIA. 3. LEFT L5 PARS DEFECT, UNCHANGED FROM 2019.
[2021-08-19 13:02] LABS: Appearance,Urine Clear (Clear); Bilirubin,Urine Negative (Negative); Blood,Urine Negative (Negative); Color,Urine Yellow; Glucose,Urine (UA) Negative (Negative); Ketones,Urine 2+ (Negative); Leukocyte Esterase,Urine Negative (Negative); Nitrite,Urine Negative (Negative); PH, Urine 6.5 (5.0-8.0); Protein,Urine Negative (Negative); Specific Gravity,Urine 1.022 (1.001-1.035); Urobilinogen,Urine <2.0 mg/dL (<2.0)
== END 2021-08-19 14:26 | disposition home or self-care (01) ==
LOC: SUPCPDRO 10:06 → EC 10:06
DX: R11.2 Nausea with vomiting, unspecified (principal); K21.9 Gastro-esophageal reflux disease without esophagitis; M19.90 Unspecified osteoarthritis, unspecified site; G40.909 Epilepsy, unspecified, not intractable, without status epilepticus; F32.A Depression, unspecified; F41.9 Anxiety disorder, unspecified; F12.90 Cannabis use, unspecified, uncomplicated; Z87.891 Personal history of nicotine dependence; Z79.899 Other long term (current) drug therapy; Z88.6 Allergy status to analgesic agent
CPT/HCPCS: 36415; 93005; 80053; 83690; 84484; 85025; 81003; 74018; 74177; 99285; 96374; 96375 ×2; J2270; J2405; C9113; Q9967

== ENCOUNTER 2021-08-30 08:19 | Inpatient (IN) | payer MEDICARE, OTHER ==
[2021-08-30] MEDS ORDERED: ONDANSETRON 4 MG/2 ML VIAL IVP STA (08:44)
[2021-08-30] MEDS ORDERED: SODIUM CHLORIDE 0.9% 1,000 ML IV STA (08:44)
[2021-08-30] MEDS ORDERED: FAMOTIDINE 20 MG/2 ML VIAL IV STA (08:45)
[2021-08-30] MEDS ORDERED: LORazepam 2 MG/ML INJ IV STA (08:45)
--- NOTE | 2021-08-30 08:48 | ED ---
General Adult HPI - General Chief complaint: Abdominal Pain Stated complaint: abd pain Time Seen by Provider: 08/30/21 08:21 Source: patient, EMS, RN notes reviewed Mode of arrival: EMS Limitations: no limitations - History of Present Illness Initial comments: Patient is a pleasant 51-year-old male presenting to the emergency department with indigestion. Patient states he gets this frequently, at least several times per year. Patient has nausea and decreased appetite. Patient has been vomiting some however not in the past several hours. No constipation or diarrhea. Patient has mild abdominal discomfort. Patient omits to feeling anxious regarding his symptoms which is also a chronic problem for him. - Related Data Home Medications Medication Instructions Recorded Confirmed Omeprazole [PriLOSEC] 20 mg PO DAILY 07/16/19 05/23/20 Verapamil HCl [Verapamil ER] 120 mg PO DAILY 07/16/19 05/23/20 Previous Rx's Medication Instructions Recorded Ondansetron Odt [Zofran ODT] 4 mg PO Q8HR PRN #14 tab 08/08/19 Cyclobenzaprine [Flexeril] 5 mg PO TID PRN 7 Days tab 05/23/20 DULoxetine HCL [Cymbalta] 60 mg PO DAILY 30 Days capsule. 05/23/20 Gabapentin [Neurontin] 800 mg PO TID 14 Days cap 05/23/20 OXcarbazepine [Trileptal] 300 mg PO TID 30 Days tab 05/23/20 hydrOXYzine pamoate [Vistaril] 25 mg PO Q6HR PRN #30 cap 05/23/20 Allergies Allergy/AdvReac Type Severity Reaction Status Date / Time aspirin AdvReac EARS RING Verified 08/30/21 00:58 diphenhydramine HCl AdvReac Hallucinati Verified 08/30/21 00:58 [From Benadryl] ons Review of Systems ROS Statement: Those systems with pertinent positive or pertinent negative responses have been documented in the HPI. ROS Other: All systems not noted in ROS Statement are negative. Constitutional: Denies: fever Eyes: Denies: eye pain ENT: Denies: ear pain Respiratory: Denies: cough Cardiovascular: Denies: chest pain Endocrine: Denies: fatigue Gastrointestinal: Reports: as per HPI Genitourinary: Denies: dysuria Musculoskeletal: Denies: back pain Skin: Denies: rash Neurological: Denies: weakness Past Medical History Past Medical History: GERD/Reflux, Osteoarthritis (OA), Seizure Disorder Additional Past Medical History / Comment(s): mitral valve prolapse, last seizure 1999, L inguinal hernia, pancreatitis in 2011 History of Any Multi-Drug Resistant Organisms: MRSA Date of last positivie culture/infection: 11/18/15 MDRO Source:: HEAD Past Surgical History: Orthopedic Surgery Additional Past Surgical History / Comment(s): left humerus ORIF with pins since removed, lanced lymph nodes from left arm Past Anesthesia/Blood Transfusion Reactions: No Reported Reaction Past Psychological History: ADD/ADHD, Anxiety, Depression, Panic Disorder Smoking Status: Former smoker Past Alcohol Use History: None Reported Past Drug Use History: Marijuana - Past Family History Father Family Medical History: Cancer Additional Family Medical History / Comment(s): from Hodgkins lymphoma. He also had prostate cancer. He at 60yrs. Mother Family Medical History: Cancer Additional Family Medical History / Comment(s): at age 57 from lung cancer. She was a smoker. Sister(s) History Unknown: Yes Additional Family Medical History / Comment(s): One sister with no major medical problems. Sister is payee for patient General Exam Limitations: no limitations General appearance: alert, in no apparent distress Head exam: Present: normocephalic Eye exam: Present: normal appearance ENT exam: Present: normal oropharynx Neck exam: Present: normal inspection Respiratory exam: Present: normal lung sounds bilaterally Cardiovascular Exam: Present: regular rate, normal rhythm Expanded Peripheral pulses: 2+: Radial (R), Radial (L), Posterior Tibialis (R), Posterior Tibialis (L), Dorsalis Pedis (R), Dorsalis Pedis (L) GI/Abdominal exam: Present: soft, normal bowel sounds. Absent: distended, tenderness, guarding, rebound, rigid, pulsatile mass Extremities exam: Present: normal inspection. Absent: pedal edema, calf tenderness Neurological exam: Present: alert Psychiatric exam: Present: normal affect, normal mood Skin exam: Present: normal color Course Vital Signs 08/30/21 08/30/21 08:26 10:30 Temperature 98.2 F Pulse Rate 107 H 66 Respiratory 18 18 Rate Blood Pressure 154/83 134/69 O2 Sat by Pulse 100 99 Oximetry EKG Findings - EKG Comments: EKG Findings:: Sinus rhythm with a rate of 64. Premature 3 present. VT 134. QRS 88. QT 396. QTc 408. Normal axis. Normal QRS. No acute ST change. Medical Decision Making - Medical Decision Making Patient reevaluated and feeling somewhat better. Troponin is not quite negative and patient will be held for observation. Dr. Ramirez has been paged for admission covering Dr. Quinteros. Patient updated. - Lab Data Result diagrams: 08/30/21 09:35 08/30/21 09:35 Lab Results 08/30/21 08/30/21 08/30/21 Range/Units 09:35 09:35 09:35 WBC 7.2 (3.8-10.6) k/uL RBC 4.46 (4.30-5.90) m/uL Hgb 13.7 (13.0-17.5) gm/dL Hct 41.9 (39.0-53.0) % MCV 93.9 (80.0-100.0) fL MCH 30.8 (25.0-35.0) pg MCHC 32.8 (31.0-37.0) g/dL RDW 13.2 (11.5-15.5) % Plt Count 379 (150-450) k/uL MPV 6.5 Neutrophils % 67 % Lymphocytes % 20 % Monocytes % 8 % Eosinophils % 2 % Basophils % 1 % Neutrophils # 4.8 (1.3-7.7) k/uL Lymphocytes # 1.5 (1.0-4.8) k/uL Monocytes # 0.6 (0-1.0) k/uL Eosinophils # 0.2 (0-0.7) k/uL Basophils # 0.0 (0-0.2) k/uL PT 10.8 (9.0-12.0) sec INR 1.0 (<1.2) APTT 24.1 (22.0-30.0) sec Sodium 137 (137-145) mmol/L Potassium 4.4 (3.5-5.1) mmol/L Chloride 106 (98-107) mmol/L Carbon Dioxide 22 (22-30) mmol/L Anion Gap 9 mmol/L BUN 9 (9-20) mg/dL Creatinine 0.95 (0.66-1.25) mg/dL Est GFR (CKD-EPI)AfAm >90 (>60 ml/min/1.73 sqM) Est GFR (CKD-EPI)NonAf >90 (>60 ml/min/1.73 sqM) Glucose 115 H (74-99) mg/dL Calcium 9.1 (8.4-10.2) mg/dL Total Bilirubin 0.5 (0.2-1.3) mg/dL AST 32 (17-59) U/L ALT 22 (4-49) U/L Alkaline Phosphatase 86 (38-126) U/L Troponin I (0.000-0.034) ng/mL Total Protein 7.4 (6.3-8.2) g/dL Albumin 4.3 (3.5-5.0) g/dL Amylase 49 (30-110) U/L Lipase 106 (23-300) U/L 08/30/21 Range/Units 09:35 WBC (3.8-10.6) k/uL RBC (4.30-5.90) m/uL Hgb (13.0-17.5) gm/dL Hct (39.0-53.0) % MCV (80.0-100.0) fL MCH (25.0-35.0) pg MCHC (31.0-37.0) g/dL RDW (11.5-15.5) % Plt Count (150-450) k/uL MPV Neutrophils % % Lymphocytes % % Monocytes % % Eosinophils % % Basophils % % Neutrophils # (1.3-7.7) k/uL Lymphocytes # (1.0-4.8) k/uL Monocytes # (0-1.0) k/uL Eosinophils # (0-0.7) k/uL Basophils # (0-0.2) k/uL PT (9.0-12.0) sec INR (<1.2) APTT (22.0-30.0) sec Sodium (137-145) mmol/L Potassium (3.5-5.1) mmol/L Chloride (98-107) mmol/L Carbon Dioxide (22-30) mmol/L Anion Gap mmol/L BUN (9-20) mg/dL Creatinine (0.66-1.25) mg/dL Est GFR (CKD-EPI)AfAm (>60 ml/min/1.73 sqM) Est GFR (CKD-EPI)NonAf (>60 ml/min/1.73 sqM) Glucose (74-99) mg/dL Calcium (8.4-10.2) mg/dL Total Bilirubin (0.2-1.3) mg/dL AST (17-59) U/L ALT (4-49) U/L Alkaline Phosphatase (38-126) U/L Troponin I 0.047 H* (0.000-0.034) ng/mL Total Protein (6.3-8.2) g/dL Albumin (3.5-5.0) g/dL Amylase (30-110) U/L Lipase (23-300) U/L Disposition Clinical Impression: Nausea & vomiting Disposition: ADMITTED IP TO THIS HOSP Is patient prescribed a controlled substance at d/c from ED?: No Referrals: Luz Elena Quinteros MD [Primary Care Provider] - 1-2 days Decision Time: 11:05
[2021-08-30 09:43] LABS: Basophils % (A) 1 %; Eosinophils # (A) 0.2 k/uL (0-0.7); Eosinophils % (A) 2 %; HCT 41.9 % (39.0-53.0); HGB 13.7 gm/dL (13.0-17.5); Lymphocytes # (A) 1.5 k/uL (1.0-4.8); Lymphocytes % (A) 20 %; MCH 30.8 pg (25.0-35.0); MCHC 32.8 g/dL (31.0-37.0); MCV 93.9 fL (80.0-100.0); Mean Platelet Volume 6.5; Monocytes # (A) 0.6 k/uL (0-1.0); Monocytes % (A) 8 %; Neutrophils # (A) 4.8 k/uL (1.3-7.7); Neutrophils % (A) 67 %; Platelet Count 379 k/uL (150-450); RBC 4.46 m/uL (4.30-5.90); RDW 13.2 % (11.5-15.5); WBC 7.2 k/uL (3.8-10.6)
[2021-08-30 10:00] LABS: ALT 22 U/L (4-49); AST 32 U/L (17-59); African American GFR (CKD) >90 (>60 ml/min/1.73 sqM); Albumin 4.3 g/dL (3.5-5.0); Alkaline Phosphatase 86 U/L (38-126); Amylase 49 U/L (30-110); Anion Gap 9 mmol/L; Blood Urea Nitrogen 9 mg/dL (9-20); Calcium 9.1 mg/dL (8.4-10.2); Carbon Dioxide 22 mmol/L (22-30); Chloride 106 mmol/L (98-107); Glucose 115 mg/dL (74-99); Lipase 106 U/L (23-300); Non-African American GFR(CKD) >90 (>60 ml/min/1.73 sqM); Potassium 4.4 mmol/L (3.5-5.1); Sodium 137 mmol/L (137-145); Total Bilirubin 0.5 mg/dL (0.2-1.3); Total Protein 7.4 g/dL (6.3-8.2)
[2021-08-30 10:02] LABS: Partial Thromboplastin Time 24.1 sec (22.0-30.0); Prothrombin Time 10.8 sec (9.0-12.0)
[2021-08-30] MEDS ORDERED: NALOXONE 0.4 MG/ML 1 ML VIAL IV PRN (11:05)
[2021-08-30] MEDS ORDERED: ONDANSETRON 4 MG/2 ML VIAL IVP PRN (11:05)
[2021-08-30] MEDS: SODIUM CHLORIDE 0.9% 1,000 ML IV SCH (11:21)
--- NOTE | 2021-08-30 14:52 | XR ---
EXAMINATION TYPE: XR chest 1V portable DATE OF EXAM: 08/30/2021 HISTORY: Shortness of breath. COMPARISON: 02/13/2019 TECHNIQUE: Single view of the chest is submitted. FINDINGS: Demonstrated are scattered senescent parenchymal change. There is no evidence for focal infiltrate. The heart is stable. Hilar and mediastinal structures are within normal limits. Degenerative changes are seen of the dorsal spine. IMPRESSION: 1. Chronic changes without evidence for acute pulmonary disease.
[2021-08-30] MEDS: hydrOXYzine pamoate 25 MG CAP PO PRN (17:20)
[2021-08-30] MEDS: PANTOPRAZOLE 40 MG TABLET PO SCH (17:26)
[2021-08-30] MEDS: GABAPENTIN 400 MG CAP PO SCH ×2 (17:27→20:36)
[2021-08-30] MEDS: DULoxetine HCL 60 MG CAPSULE.DR PO SCH (20:36)
--- NOTE | 2021-08-30 21:34 | P.HPIM ---
History of Present Illness H&P Date: 08/30/21 Chief Complaint: nausea Patient is a 51-year-old male with a known history of GERD, mitral valve prolapse and seizure disorder, ADD/ADHD, anxiety depression and panic disorder and previous history of smoking and marijuana use presents to ER with complaints of nausea and vomiting and epigastric abdominal pain since yesterday evening. Patient has been having decreased appetite. Denies any cough or sputum production. No fever no chills. Denies any radiation of the pain. No shortness of breath. Chest x-ray showed chronic changes without evidence for acute pulmonary disease. EKG showed sinus rhythm with PVCs. Laboratory pressure WBC 7.2 hemoglobin 13.7 and platelets 379 sodium 137 potassium 4.4 chloride 106 BUN 9 and creatinine 0.95 blood sugar is 115 Liver enzymes are not elevated Troponin 0 0.047, 0.043 and 0.033 Amylase 49 and lipase 106 and coronavirus PCR not detected. Review of Systems Constitutional: Patient denies any fever or chills . No generalized weakness or weight loss. Abdomen: Patient does have nausea and episodes of vomiting at home. abdominal discomfort. No diarrhea.. Cardiovascular: Patient denies any chest pain or short of breath no palpitations. Respiratory: patient denied any cough or sputum production. No shortness of breath Neurologic: Patient denied any numbness or tingling headache. Musculoskeletal: Patient denies any complaints of joint swelling or deformity. Skin: Negative Psychiatric: Negative Endocrine: No heat or cold intolerance. No recent weight gain. Genitourinary: No dysuria or hematuria. All other 14 point ROS negative except the above Past Medical History Past Medical History: GERD/Reflux, Osteoarthritis (OA), Seizure Disorder Additional Past Medical History / Comment(s): mitral valve prolapse, last seizure 1999, L inguinal hernia, pancreatitis in 2011 History of Any Multi-Drug Resistant Organisms: MRSA Date of last positivie culture/infection: 11/18/15 MDRO Source:: HEAD Past Surgical History: Orthopedic Surgery Additional Past Surgical History / Comment(s): left humerus ORIF with pins since removed, lanced lymph nodes from left arm Past Anesthesia/Blood Transfusion Reactions: No Reported Reaction Past Psychological History: ADD/ADHD, Anxiety, Depression, Panic Disorder Smoking Status: Former smoker Past Alcohol Use History: None Reported Past Drug Use History: Marijuana - Past Family History Father Family Medical History: Cancer Additional Family Medical History / Comment(s): from Hodgkins lymphoma. He also had prostate cancer. He at 60yrs. Mother Family Medical History: Cancer Additional Family Medical History / Comment(s): at age 57 from lung cancer. She was a smoker. Sister(s) History Unknown: Yes Additional Family Medical History / Comment(s): One sister with no major medical problems. Sister is payee for patient Medications and Allergies Home Medications Medication Instructions Recorded Confirmed Type DULoxetine HCL [Cymbalta] 60 mg PO BID 08/30/21 08/30/21 History Gabapentin 800 mg PO TID 08/30/21 08/30/21 History Meloxicam [Mobic] 15 mg PO DAILY 08/30/21 08/30/21 History Omeprazole 40 mg PO DAILY 08/30/21 08/30/21 History hydrOXYzine pamoate [Vistaril] 50 mg PO TID PRN 08/30/21 08/30/21 History Allergies Allergy/AdvReac Type Severity Reaction Status Date / Time aspirin AdvReac EARS RING Verified 08/30/21 00:58 diphenhydramine HCl AdvReac Hallucinati Verified 08/30/21 00:58 [From Benadryl] ons Physical Exam Vitals: Vital Signs Temp Pulse Resp BP Pulse Ox 08/30/21 10:30 66 18 134/69 99 08/30/21 08:26 98.2 F 107 H 18 154/83 100 Intake and Output 08/29/21 08/30/21 08/30/21 22:59 06:59 14:59 Other: Weight 68.039 kg PHYSICAL EXAMINATION: Patient is lying in the bed comfortably, no acute distress, awake alert and oriented.. HEENT: Normocephalic. Neck is supple. Pupils reactive. Nostrils clear. Oral cavity is moist. Neck reveals no JVD, carotid bruits, or thyromegaly. CHEST EXAMINATION: Trachea is central. Symmetrical expansion. Lung robles clear to auscultation and percussion. CARDIAC: Normal S1, S2 with no gallops. No murmurs ABDOMEN: Soft. Bowel sounds normal. No organomegaly. No abdominal bruits. Extremities: reveal no edema. No clubbing or cyanosis Neurologically awake, alert, oriented x3 with well-coordinated movements. No focal deficits noted Skin: No rash or skin lesions. Psychiatric: Cooperative. Nonsuicidal Musculoskeletal: No joint swelling or deformity. Normal range of motion. Results CBC & Chem 7: 08/30/21 09:35 08/30/21 09:35 Labs: Abnormal Lab Results - Last 24 Hours (Table) 08/30/21 08/30/21 Range/Units 09:35 09:35 Glucose 115 H (74-99) mg/dL Troponin I 0.047 H* (0.000-0.034) ng/mL Thrombosis Risk Factor Assmnt - DVT/VTE Prophylaxis DVT/VTE Prophylaxis: Pharmacologic Prophylaxis ordered Assessment and Plan Assessment: Intractable nausea/vomiting and epigastric discomfort. Mild elevated troponin level. Possible NSTEMI cannot be excluded. GERD Osteoarthritis Seizure disorder History of mitral valve prolapse ADD/ADHD There is less depression and panic disorder Previous history of smoking History of marijuana use GI and DVT prophylaxis with heparin subcu Plan: Patient will be continued on symptomatic management for nausea and vomiting. Continue with IV hydration. Follow-up serial EKG and troponin level. Troponin level is trending down at this time. Cardiology was consulted for evaluation. Continue with home medications and follow-up closely.
[2021-08-30] MEDS: HEPARIN SODIUM,PORCINE/PF 5,000 UNIT/0.5 ML SYRINGE SQ SCH (23:10)
[2021-08-31] MEDS: SODIUM CHLORIDE 0.9% 1,000 ML IV SCH (05:51)
[2021-08-31] MEDS: PANTOPRAZOLE 40 MG TABLET PO SCH (05:51)
--- NOTE | 2021-08-31 07:03 | XR ---
EXAMINATION TYPE: XR chest 1V DATE OF EXAM: 08/31/2021 6:29 AM COMPARISON:Chest radiograph from one day prior. CLINICAL INDICATION:Male, 51 years old with history of cardiac eval; TECHNIQUE: Frontal view of the chest. FINDINGS: Lungs/Pleura: There is flattening of the diaphragm with increased lucency of the lungs. No evidence o f pneumothorax, pleural effusion or focal consolidation. Pulmonary vascularity: Unremarkable. Heart/mediastinum: Cardiomediastinal silhouette is unremarkable. Musculoskeletal: No acute osseous pathology. IMPRESSION: Chronic changes without acute pulmonary process. No significant change from prior.
[2021-08-31] MEDS ORDERED: PANTOPRAZOLE 40 MG/10 ML VIAL IV SCH (09:00)
[2021-08-31] MEDS: GABAPENTIN 400 MG CAP PO SCH ×3 (09:47→19:50)
[2021-08-31] MEDS: DULoxetine HCL 60 MG CAPSULE.DR PO SCH ×2 (09:48→19:50)
[2021-08-31] MEDS: HEPARIN SODIUM,PORCINE/PF 5,000 UNIT/0.5 ML SYRINGE SQ SCH ×2 (09:48→16:43)
--- NOTE | 2021-08-31 10:14 | P.CRDCN ---
History of Present Illness History of present illness: HISTORY OF PRESENTING ILLNESS This is a pleasant 51-year-old with past medical history significant for her myalgia, arthritis, anxiety who presents with episode of mid epigastric burning sensation radiating into his chest with associated nausea and diaphoresis which started yesterday. Patient states he somewhat attributed this to anxiety however states he knew that he could not get out of bed and therefore came to emergency department. He was found to have minimally elevated troponins and EKG unrevealing. He admits he has had a number of episodes similar to this in the past and normally attributes that to anxiety. He also has other episodes where he gets chest discomfort. He denies any clear correlation with exercise. He does not smoke, no alcohol, uses marijuana, states he has family history of coronary artery disease however unsure of who. Denies any history of hyperte nsion however blood pressures been occasion the 130s however predominantly 140s up to 170s systolic. Denies any further epigastric pain or nausea. REVIEW OF SYSTEMS At the time of my exam: CONSTITUTIONAL: Denies fever or chills. CARDIOVASCULAR: +chest pain, no shortness of breath, orthopnea, PND or palpitations. RESPIRATORY: Denies cough. GASTROINTESTINAL: Denies abdominal pain, diarrhea, constipation, +nausea, no vomiting. MUSCULOSKELETAL: Denies myalgias. NEUROLOGIC: Denies numbness, tingling or weakness. ENDOCRINE: Denies fatigue, weight change, polydipsia or polyurina. GENITOURINARY: Denies burning, hematuria or urgency with micturation. HEMATOLOGIC: Denies history of anemia or bleeding. PHYSICAL EXAMINATION Vital signs reviewed. CONSTITUTIONAL: No apparent distress. HEENT: Head is normocephalic. Pupils are equal, round. Sclerae anicteric. Mucous membranes of the mouth are moist. No JVD. No carotid bruit. CHEST EXAMINATION: Lungs are clear to auscultation. No chest wall tenderness is noted on palpation or with deep breathing. HEART EXAMINATION: Regular rate and rhythm. S1, S2 heard. No murmurs, gallops or rub. ABDOMEN: Soft, nontender. Positive bowel sounds. EXTREMITIES: 2+ peripheral pulses, no lower extremity edema and no calf tenderness. NEUROLOGIC EXAMINATION: Patient is awake, alert and oriented x3. ASSESSMENT 1. Elevated troponin, rule out type I NSTEMI mechanism with some epigastric pain and nausea 2. Hypertension 3. Nausea, epigastric pain radiating in the chest 4. Fibromyalgia PLAN Check 2-D echo as well as Lexiscan stress test on Thursday. Symptoms are not typical however minimally elevated troponin and appears he has been having off-and-on symptoms for some time concerning for more unstable angina. Continue aspirin. We will add Toprol given elevated blood pressures well. Further recommendations to follow. Past Medical History Past Medical History: GERD/Reflux, Osteoarthritis (OA), Seizure Disorder Additional Past Medical History / Comment(s): mitral valve prolapse, last seizure 1999, L inguinal hernia, pancreatitis in 2011 History of Any Multi-Drug Resistant Organisms: MRSA Date of last positivie culture/infection: 11/18/15 MDRO Source:: HEAD Past Surgical History: Orthopedic Surgery Additional Past Surgical History / Comment(s): left humerus ORIF with pins since removed, lanced lymph nodes from left arm Past Anesthesia/Blood Transfusion Reactions: No Reported Reaction Past Psychological History: ADD/ADHD, Anxiety, Depression, Panic Disorder Smoking Status: Former smoker Past Alcohol Use History: None Reported Past Drug Use History: Marijuana - Past Family History Father Family Medical History: Cancer Additional Family Medical History / Comment(s): from Hodgkins lymphoma. He also had prostate cancer. He at 60yrs. Mother Family Medical History: Cancer Additional Family Medical History / Comment(s): at age 57 from lung cancer. She was a smoker. Sister(s) History Unknown: Yes Additional Family Medical History / Comment(s): One sister with no major medical problems. Sister is payee for patient Medications and Allergies Home Medications Medication Instructions Recorded Confirmed Type DULoxetine HCL [Cymbalta] 60 mg PO BID 08/30/21 08/30/21 History Gabapentin 800 mg PO TID 08/30/21 08/30/21 History Meloxicam [Mobic] 15 mg PO DAILY 08/30/21 08/30/21 History Omeprazole 40 mg PO DAILY 08/30/21 08/30/21 History hydrOXYzine pamoate [Vistaril] 50 mg PO TID PRN 08/30/21 08/30/21 History Allergies Allergy/AdvReac Type Severity Reaction Status Date / Time aspirin AdvReac EARS RING Verified 08/30/21 00:58 diphenhydramine HCl AdvReac Hallucinati Verified 08/30/21 00:58 [From Amber] ons Physical Exam Vitals: Vital Signs Temp Pulse Pulse Resp BP BP Pulse Ox 08/31/21 08:00 97.7 F 78 18 172/97 99 08/31/21 04:00 98.2 F 76 18 151/88 95 08/31/21 02:00 72 18 08/31/21 00:00 98 F 70 18 156/50 95 08/30/21 20:00 97.8 F 72 18 161/98 96 08/30/21 17:18 93 18 134/63 96 08/30/21 15:00 98.3 F 73 18 145/66 98 08/30/21 13:00 80 18 148/73 96 08/30/21 10:30 66 18 134/69 99 Intake and Output 08/30/21 08/31/21 08/31/21 22:59 06:59 14:59 Intake Total 240 495 Balance 240 495 Intake: Intake, IV Titration 375 Amount Sodium Chloride 0.9% 1, 375 000 ml @ 75 mls/hr IV . [id number] [facility] Rx#:[id number] Oral 240 120 Other: # Voids 2 Results 08/30/21 09:35 08/30/21 09:35 Cardiac Enzymes 08/30/21 08/30/21 08/30/21 Range/Units 09:35 12:21 16:08 Troponin I 0.047 H* 0.043 H* 0.033 (0.000-0.034) ng/mL Current Medications Generic Name Dose Route Start Last Admin Trade Name Freq PRN Reason Stop Dose Admin Duloxetine HCl 60 mg 08/30/21 21:00 08/31/21 09:48 Duloxetine Hcl 60 Mg Capsule.Dr PO 60 mg BID HUA Administration Gabapentin 800 mg 08/30/21 16:00 08/31/21 09:47 Gabapentin 400 Mg Cap PO 800 mg TID HUA Administration Heparin Sodium (Porcine) 5,000 unit 08/31/21 00:00 08/31/21 09:48 Heparin Sodium,Porcine/Pf 5,000 Unit/0.5 Ml Syringe SQ 5,000 unit Q8HR [facility]UA Administration Hydroxyzine Pamoate 50 mg 08/30/21 15:20 08/30/21 17:20 Hydroxyzine Pamoate 25 Mg Cap PO 50 mg TID PRN Administration Anxiety Sodium Chloride 1,000 mls @ 75 mls/hr 08/30/21 11:15 08/31/21 05:51 Saline 0.9% IV Not Given .[id number] [facility] Naloxone HCl 0.2 mg 08/30/21 11:05 Naloxone 0.4 Mg/Ml 1 Ml Vial IV Q2M PRN Opioid Reversal Ondansetron HCl 4 mg 08/30/21 11:05 08/30/21 17:19 Ondansetron 4 Mg/2 Ml Vial IVP 4 mg Q8HR PRN Administration Nausea And Vomiting Pantoprazole Sodium 40 mg 08/30/21 15:30 08/31/21 05:51 Pantoprazole 40 Mg Tablet PO 40 mg DAILY@0730 [facility] Administration Intake and Output 08/30/21 08/31/21 08/31/21 22:59 06:59 14:59 Intake Total 240 495 Balance 240 495 Intake: Intake, IV Titration 375 Amount Sodium Chloride 0.9% 1, 375 000 ml @ 75 mls/hr IV . [id number] [facility] Rx#:[id number] Oral 240 120 Other: # Voids 2 08/30/21 09:35 08/30/21 09:35
[2021-08-31] MEDS: ASPIRIN 81 MG PO SCH (11:17)
[2021-08-31] MEDS: METOPROLOL SUCCINATE (ER) 25 MG TAB.ER.24H PO SCH (11:17)
[2021-08-31] MEDS: hydrOXYzine pamoate 25 MG CAP PO PRN (16:41)
[2021-08-31] MEDS ORDERED: LORazepam 2 MG/ML INJ IV STA (17:16)
[2021-08-31] MEDS ORDERED: ACETAMINOPHEN TAB 325 MG TAB PO PRN (17:18)
[2021-08-31 17:27] LABS: Chol/HDL Ratio 5.23 Ratio; LDL Cholesterol,Calculated 171.5 mg/dL (0.0-131.0); VLDL Calculation 16.06 mg/dL (5.00-40.00)
--- NOTE | 2021-08-31 23:03 | P.PN ---
Subjective Progress Note Date: 08/31/21 Patient is a 51-year-old male with a known history of GERD, mitral valve prolapse and seizure disorder, ADD/ADHD, anxiety depression and panic disorder and previous history of smoking and marijuana use presents to ER with complaints of nausea and vomiting and epigastric abdominal pain since yesterday evening. Patient has been having decreased appetite. Denies any cough or sputum production. No fever no chills. Denies any radiation of the pain. No shortness of breath. Chest x-ray showed chronic changes without evidence for acute pulmonary disease. EKG showed sinus rhythm with PVCs. Laboratory pressure WBC 7.2 hemoglobin 13.7 and platelets 379 sodium 137 potassium 4.4 chloride 106 BUN 9 and creatinine 0.95 blood sugar is 115 Liver enzymes are not elevated Troponin 0 0.047, 0.043 and 0.033 Amylase 49 and lipase 106 and coronavirus PCR not detected. 08/31/2021 Patient is currently sitting in the chair comfortably. Awake alert and oriented x3. No complaints of chest pain or shortness breath. Nausea vomiting resolved and patient is able to tolerate oral diet today. Otherwise patient became anxious in the afternoon requiring Ativan dose. Patient will be continued on Cymbalta and pain management. Cardiology has seen the patient and recommends stress test on Thursday. Laboratory showed troponin trending down to 0.033. REVIEW OF SYSTEMS CONSTITUTIONAL: Denies fever or chills. CARDIOVASCULAR: Denies chest pain, shortness of breath, orthopnea, PND or palpitations. RESPIRATORY: Denies cough. GASTROINTESTINAL: Denies abdominal pain, diarrhea, constipation, nausea or vomiting. MUSCULOSKELETAL: Denies myalgias. NEUROLOGIC: Denies numbness, tingling or weakness. ENDOCRINE: Denies fatigue, weight change, polydipsia or polyurina. GENITOURINARY: Denies burning, hematuria or urgency with micturation. HEMATOLOGIC: Denies history of anemia or bleeding. Current medications reviewed. Objective - Vital Signs Vital signs: Vital Signs Temp 98.0 F 08/31/21 16:00 Pulse 70 08/31/21 16:00 Resp 18 08/31/21 16:00 BP 148/89 08/31/21 16:00 Pulse Ox 98 08/31/21 16:00 Intake & Output 08/31/21 08/31/21 09/01/21 06:59 18:59 06:59 Intake Total 735 Output Total 200 Balance 735 -200 Weight 75.5 kg Intake: Intake, IV Titration 375 Amount Sodium Chloride 0.9% 1, 375 000 ml @ 75 mls/hr IV . [id number] [facility] Rx#:[id number] Oral 360 Output: Urine 200 Other: # Voids 2 1 - Exam PHYSICAL EXAMINATION: Patient is lying in the bed comfortably, no acute distress, awake alert and oriented.. HEENT: Normocephalic. Neck is supple. Pupils reactive. Nostrils clear. Oral cavity is moist. Neck reveals no JVD, carotid bruits, or thyromegaly. CHEST EXAMINATION: Trachea is central. Symmetrical expansion. Lung robles clear to auscultation and percussion. CARDIAC: Normal S1, S2 with no gallops. No murmurs ABDOMEN: Soft. Bowel sounds normal. No organomegaly. No abdominal bruits. Extremities: reveal no edema. No clubbing or cyanosis Neurologically awake, alert, oriented x3 with well-coordinated movements. No focal deficits noted Skin: No rash or skin lesions. Psychiatric: Cooperative. Nonsuicidal Musculoskeletal: No joint swelling or deformity. Normal range of motion. - Labs CBC & Chem 7: 08/30/21 09:35 08/30/21 09:35 Labs: Abnormal Lab Results - Last 24 Hours (Table) 08/30/21 Range/Units 09:35 Cholesterol 232.00 H (0.00-200.00) mg/dL LDL Cholesterol, Calc 171.5 H (0.0-131.0) mg/dL Assessment and Plan Assessment: Intractable nausea/vomiting and epigastric discomfort. Mild elevated troponin level. Possible NSTEMI cannot be excluded. GERD Osteoarthritis Seizure disorder History of mitral valve prolapse ADD/ADHD There is less depression and panic disorder Previous history of smoking History of marijuana use GI and DVT prophylaxis with heparin subcu Plan: Patient will be continued on symptomatic management for nausea and vomiting. Continue with IV hydration. Follow-up serial EKG and troponin level. Troponin level is trending down at this time. Cardiology is following. .Stress test on Thursday. Continue with home medications and follow-up closely. Time with Patient: Greater than 30
[2021-09-01] MEDS: SODIUM CHLORIDE 0.9% 1,000 ML IV SCH ×3 (00:49→22:05)
[2021-09-01] MEDS: HEPARIN SODIUM,PORCINE/PF 5,000 UNIT/0.5 ML SYRINGE SQ SCH ×3 (00:49→17:59)
[2021-09-01] MEDS: PANTOPRAZOLE 40 MG TABLET PO SCH (06:32)
[2021-09-01 09:01] LABS: Basophils # (A) 0.1 k/uL (0-0.2); Basophils % (A) 1 %; Eosinophils # (A) 0.2 k/uL (0-0.7); Eosinophils % (A) 3 %; HCT 46.6 % (39.0-53.0); HGB 15.1 gm/dL (13.0-17.5); Lymphocytes # (A) 1.9 k/uL (1.0-4.8); Lymphocytes % (A) 32 %; MCHC 32.4 g/dL (31.0-37.0); MCV 95.6 fL (80.0-100.0); Mean Platelet Volume 6.6; Monocytes # (A) 0.5 k/uL (0-1.0); Monocytes % (A) 9 %; Neutrophils # (A) 3.1 k/uL (1.3-7.7); Neutrophils % (A) 53 %; Platelet Count 356 k/uL (150-450); RBC 4.88 m/uL (4.30-5.90); RDW 12.7 % (11.5-15.5); WBC 5.8 k/uL (3.8-10.6)
[2021-09-01 09:13] LABS: African American GFR (CKD) >90 (>60 ml/min/1.73 sqM); Anion Gap 7 mmol/L; Blood Urea Nitrogen 15 mg/dL (9-20); Carbon Dioxide 24 mmol/L (22-30); Chloride 103 mmol/L (98-107); Glucose 96 mg/dL (74-99); Non-African American GFR(CKD) >90 (>60 ml/min/1.73 sqM); Sodium 134 mmol/L (137-145)
[2021-09-01] MEDS: DULoxetine HCL 60 MG CAPSULE.DR PO SCH ×2 (09:32→20:53)
[2021-09-01] MEDS: METOPROLOL SUCCINATE (ER) 25 MG TAB.ER.24H PO SCH (09:32)
[2021-09-01] MEDS: ASPIRIN 81 MG PO SCH (09:32)
[2021-09-01] MEDS: GABAPENTIN 400 MG CAP PO SCH ×3 (09:32→20:53)
[2021-09-01 09:34] LABS: Potassium 4.4 mmol/L (3.5-5.1)
--- NOTE | 2021-09-01 09:58 | P.PN ---
Subjective HISTORY OF PRESENTING ILLNESS This is a pleasant 51-year-old with past medical history significant for her myalgia, arthritis, anxiety who presents with episode of mid epigastric burning sensation radiating into his chest with associated nausea and diaphoresis which started yesterday. Patient states he somewhat attributed this to anxiety however states he knew that he could not get out of bed and therefore came to emergency department. He was found to have minimally elevated troponins and EKG unrevealing. He admits he has had a number of episodes similar to this in the past and normally attributes that to anxiety. He also has other episodes where he gets chest discomfort. He denies any clear correlation with exercise. He does not smoke, no alcohol, uses marijuana, states he has family history of coronary artery disease however unsure of who. Denies any history of hypertension however blood pressures been occasion the 130s however predominantly 140s up to 170s systolic. Denies any further epigastric pain or nausea. 1/2 Patient seen and examined. Patient denies any further episodes of nausea, upset stomach or vomiting. States overall he is feeling fairly well however not quite himself. Has been able walk on the halls however no significant chest pain or dyspnea. LDL noted to be in the 170s. PHYSICAL EXAMINATION Vital signs reviewed. CONSTITUTIONAL: No apparent distress. HEENT: Head is normocephalic. Pupils are equal, round. Sclerae anicteric. Mucous membranes of the mouth are moist. No JVD. No carotid bruit. CHEST EXAMINATION: Lungs are clear to auscultation. No chest wall tenderness is noted on palpation or with deep breathing. HEART EXAMINATION: Regular rate and rhythm. S1, S2 heard. No murmurs, gallops or rub. ABDOMEN: Soft, nontender. Positive bowel sounds. EXTREMITIES: 2+ peripheral pulses, no lower extremity edema and no calf tenderness. NEUROLOGIC EXAMINATION: Patient is awake, alert and oriented x3. ASSESSMENT 1. Elevated troponin, rule out type I NSTEMI mechanism with some epigastric p ain and nausea 2. Hypertension 3. Nausea, epigastric pain radiating in the chest 4. Fibromyalgia 5. HLD PLAN Await 2-D echo as well as Lexiscan stress test on Thursday. Symptoms are not typical however minimally elevated troponin and appears he has been having off-and-on symptoms for some time concerning for more unstable angina. Continue aspirin. Continue Toprol given elevated blood pressures well. Add Lipitor given elevated LDL. Further recommendations to follow. Objective - Vital Signs Vital signs: Vital Signs Temp 97.6 F 09/01/21 08:00 Pulse 76 09/01/21 08:00 Resp 18 09/01/21 08:00 BP 139/73 09/01/21 08:00 Pulse Ox 100 09/01/21 08:00 Intake & Output 08/31/21 09/01/21 09/01/21 18:59 06:59 18:59 Output Total 200 Balance -200 Weight 75.5 kg Output: Urine 200 Other: # Voids 1 1 - Labs CBC & Chem 7: 09/01/21 08:36 09/01/21 08:36 Labs: Abnormal Lab Results - Last 24 Hours (Table) 08/30/21 09/01/21 Range/Units 09:35 08:36 Sodium 134 L (137-145) mmol/L Cholesterol 232.00 H (0.00-200.00) mg/dL LDL Cholesterol, Calc 171.5 H (0.0-131.0) mg/dL
[2021-09-01] MEDS: hydrOXYzine pamoate 25 MG CAP PO PRN ×2 (12:51→20:56)
[2021-09-01] MEDS: LORazepam 1 MG TAB PO PRN (14:39)
[2021-09-01] MEDS ORDERED: ATORVASTATIN 40 MG TAB PO SCH (21:00)
--- NOTE | 2021-09-02 01:17 | P.PN ---
Subjective Progress Note Date: 09/01/21 Patient is a 51-year-old male with a known history of GERD, mitral valve prolapse and seizure disorder, ADD/ADHD, anxiety depression and panic disorder and previous history of smoking and marijuana use presents to ER with complaints of nausea and vomiting and epigastric abdominal pain since yesterday evening. Patient has been having decreased appetite. Denies any cough or sputum production. No fever no chills. Denies any radiation of the pain. No shortness of breath. Chest x-ray showed chronic changes without evidence for acute pulmonary disease. EKG showed sinus rhythm with PVCs. Laboratory pressure WBC 7.2 hemoglobin 13.7 and platelets 379 sodium 137 potassium 4.4 chloride 106 BUN 9 and creatinine 0.95 blood sugar is 115 Liver enzymes are not elevated Troponin 0 0.047, 0.043 and 0.033 Amylase 49 and lipase 106 and coronavirus PCR not detected. 08/31/2021 Patient is currently sitting in the chair comfortably. Awake alert and oriented x3. No complaints of chest pain or shortness breath. Nausea vomiting resolved and patient is able to tolerate oral diet today. Otherwise patient became anxious in the afternoon requiring Ativan dose. Patient will be continued on Cymbalta and pain management. Cardiology has seen the patient and recommends stress test on Thursday. Laboratory showed troponin trending down to 0.033. 09/01/2021 Patient is currently resting in bed. Awake alert and oriented x3. Less anxious today. No nausea vomiting abdominal pain or diarrhea. Stress test tomorrow. REVIEW OF SYSTEMS CONSTITUTIONAL: Denies fever or chills. CARDIOVASCULAR: Denies chest pain, shortness of breath, orthopnea, PND or palpitations. RESPIRATORY: Denies cough. GASTROINTESTINAL: Denies abdominal pain, diarrhea, constipation, nausea or vomiting. MUSCULOSKELETAL: Denies myalgias. NEUROLOGIC: Denies numbness, tingling or weakness. ENDOCRINE: Denies fatigue, weight change, polydipsia or polyurina. GENITOURINARY: Denies burning, hematuria or urgency with micturation. HEMATOLOGIC: Denies history of anemia or bleeding. Current medications reviewed. Objective - Vital Signs Vital signs: Vital Signs Temp 97.6 F 09/01/21 08:00 Pulse 64 09/01/21 12:00 Resp 18 09/01/21 12:00 BP 160/84 09/01/21 12:00 Pulse Ox 99 09/01/21 12:00 Intake & Output 08/31/21 09/01/21 09/01/21 18:59 06:59 18:59 Intake Total 305 Output Total 200 Balance -200 305 Weight 75.5 kg Intake: Oral 305 Output: Urine 200 Other: # Voids 1 1 2 - Exam PHYSICAL EXAMINATION: Patient is lying in the bed comfortably, no acute distress, awake alert and oriented.. HEENT: Normocephalic. Neck is supple. Pupils reactive. Nostrils clear. Oral cavity is moist. Neck reveals no JVD, carotid bruits, or thyromegaly. CHEST EXAMINATION: Trachea is central. Symmetrical expansion. Lung robles clear to auscultation and percussion. CARDIAC: Normal S1, S2 with no gallops. No murmurs ABDOMEN: Soft. Bowel sounds normal. No organomegaly. No abdominal bruits. Extremities: reveal no edema. No clubbing or cyanosis Neurologically awake, alert, oriented x3 with well-coordinated movements. No focal deficits noted Skin: No rash or skin lesions. Psychiatric: Cooperative. Nonsuicidal Musculoskeletal: No joint swelling or deformity. Normal range of motion. - Labs CBC & Chem 7: 09/01/21 08:36 09/01/21 08:36 Labs: Abnormal Lab Results - Last 24 Hours (Table) 08/30/21 09/01/21 Range/Units 09:35 08:36 Sodium 134 L (137-145) mmol/L Cholesterol 232.00 H (0.00-200.00) mg/dL LDL Cholesterol, Calc 171.5 H (0.0-131.0) mg/dL Assessment and Plan Assessment: Intractable nausea/vomiting and epigastric discomfort. Mild elevated troponin level. Possible NSTEMI cannot be excluded. Hyperlipidemia with LDL 171 GERD Osteoarthritis Seizure disorder History of mitral valve prolapse ADD/ADHD There is less depression and panic disorder Previous history of smoking History of marijuana use GI and DVT prophylaxis with heparin subcu Plan: Patient will be continued on symptomatic management for nausea and vomiting. Continue with IV hydration. Follow-up serial EKG and troponin level. Troponin level is trending down at this time. Cardiology is following. .Stress test on Thursday. Continue with home medications and follow-up closely.
[2021-09-02] MEDS: HEPARIN SODIUM,PORCINE/PF 5,000 UNIT/0.5 ML SYRINGE SQ SCH ×3 (01:25→16:49)
[2021-09-02] MEDS: SODIUM CHLORIDE 0.9% 1,000 ML IV SCH (06:09)
[2021-09-02] MEDS: PANTOPRAZOLE 40 MG TABLET PO SCH (06:47)
[2021-09-02] MEDS ORDERED: AMINOPHYLLINE 500 MG/20 ML VIAL IV PRN (08:49)
[2021-09-02] MEDS ORDERED: CAFFEINE CITRATE 60 MG/3 ML VIAL IV PRN (08:49)
[2021-09-02] MEDS ORDERED: REGADENOSON 0.4 MG/5 ML SYRINGE IV PRN (08:49)
[2021-09-02] MEDS: ASPIRIN 81 MG PO SCH (09:08)
[2021-09-02] MEDS: DULoxetine HCL 60 MG CAPSULE.DR PO SCH (09:08)
[2021-09-02] MEDS: GABAPENTIN 400 MG CAP PO SCH ×2 (09:08→16:49)
[2021-09-02] MEDS: hydrOXYzine pamoate 25 MG CAP PO PRN ×2 (10:45→16:49)
[2021-09-02 11:34] VITALS: RESP 18; TEMP 97.7
[2021-09-02] MEDS ORDERED: AMINOPHYLLINE 500 MG/20 ML VIAL IV ONE (11:45)
--- NOTE | 2021-09-02 12:03 | P.STRESS ---
- Stress Test Note Stress Test Results/Findings: Exam Performed: NM stress lexiscan cardiolite Exam Date: 09/02/21 Reason for Exam: CP Height: 5 ft 10 in Weight: 75.5 kg Protocol: LEXISCAN CARDIOLITE Stage: NA Duration of Exercise: NA Resting Heart Rate: 52 Resting Blood Pressure: 143/87 Maximum Achieved Heart Rate: 111 Maximum Achieved Blood Pressure: 169/102 85% PMHR: 144 100% PMHR: 169 METS: NA Technologist Comment: Stress Test Results/Findings: At baseline EKG showed normal sinus rhythm, normal axis, no significant ST or T wave abnormalities, minimal J-point elevation in the inferior leads. Patient recieved IV infusion of Lexiscan 0.4mg and at peak infusion EKG showed no significant change from baseline. Conclusions: 1. Normal EKG response to Lexiscan infusion 2. Nuclear imaging to be reported separately.
--- NOTE | 2021-09-02 12:33 | P.PN ---
Subjective Progress Note Date: 09/02/21 HISTORY OF PRESENT ILLNESS: This is a pleasant 51-year-old with past medical history significant for her myalgia, arthritis, anxiety who presents with episode of mid epigastric burning sensation radiating into his chest with associated nausea and diaphoresis which started yesterday. Patient states he somewhat attributed this to anxiety however states he knew that he could not get out of bed and therefore came to emergency department. He was found to have minimally elevated troponins and EKG unrevealing. He admits he has had a number of episodes similar to this in the past and normally attributes that to anxiety. He also has other episodes where he gets chest discomfort. He denies any clear correlation with exercise. He does not smoke, no alcohol, uses marijuana, states he has family history of coronary artery disease however unsure of who. Denies any history of hypertension however blood pressures been occasion the 130s however predominantly 140s up to 170s systolic. Denies any further epigastric pain or nausea. 09/01 Patient seen and examined. Patient denies any further episodes of nausea, upset stomach or vomiting. States overall he is feeling fairly well however not quite himself. Has been able walk on the halls however no significant chest pain or dyspnea. LDL noted to be in the 170s. 09/02/2021 Patient examined at the bedside this morning. He denies chest pain or pressure. Denies shortness of breath. Vital signs stable. PHYSICAL EXAM: VITAL SIGNS: Reviewed. GENERAL: Well-developed in no acute distress. NECK: Supple. No JVD or thyromegaly LUNGS: Respirations even and unlabored. Lungs essentially clear to auscultation bilaterally. HEART: Regular rate and rhythm. S1 and S2 heard. EXTREMITIES: Normal range of motion. No clubbing or cyanosis. Peripheral pulses intact. No lower extremity edema ASSESSMENT: 1. Elevated troponin, rule out type I NSTEMI mechanism with some epigastric pain and nausea 2. Hypertension 3. Nausea, epigastric pain radiating in the chest 4. Fibromyalgia 5. HLD PLAN: Continue current cardiac medications 2D echo ordered. Await results. Will obtain Mayra scan stress test today. Await results. Anticipate discharge home this afternoon pending echo and mayra scan results. Nurse practitioner note has been reviewed by physician. Signing provider agrees with the documented findings, assessment, and plan of care. Objective - Vital Signs Vital signs: Vital Signs Temp 98.0 F 09/02/21 00:00 Pulse 65 09/02/21 04:00 Resp 16 09/02/21 04:00 BP 121/74 09/02/21 04:00 Pulse Ox 97 09/02/21 04:00 Intake & Output 09/01/21 09/02/21 09/02/21 18:59 06:59 18:59 Intake Total 542 960 Balance 542 960 Intake: Oral 542 960 Other: # Voids 2 2 - Labs CBC & Chem 7: 09/01/21 08:36 09/01/21 08:36
[2021-09-02] MEDS: METOPROLOL SUCCINATE (ER) 25 MG TAB.ER.24H PO SCH (12:46)
--- NOTE | 2021-09-02 13:11 | NM ---
EXAMINATION TYPE: NM stress lexiscan cardiolite DATE OF EXAM: 09/02/2021 COMPARISON: NONE HISTORY: History of hypertension and tobacco use along with family history of heart attack presents w ith chest pain, palpitations, and difficulty in breathing. TECHNIQUE: After the intravenous administration of 9.5 mCi Tc 99m Sestamibi - Cardiolite resting SPE CT images acquired 45 minutes post injection. The patient received 0.4mg Lexiscan, 26.6 mCi Tc 99m Sestamibi - Stress images obtained [address] injection FINDINGS: Review of stress and rest SPECT images demonstrates no distinct perfusion abnormality. Gated analysi s shows normal wall motion with an estimated left ventricular ejection fraction of 56 %. IMPRESSION: No scintigraphic evidence for reversible ischemia.
[2021-09-02 13:22] VITALS: BP 153/109; PULSE 82
[2021-09-02] MEDS: LORazepam 1 MG TAB PO PRN (16:52)
--- NOTE | 2021-09-03 08:51 | ECHOS ---
Stress Test Results/Findings: Exam Performed: NM stress lexiscan cardiolite Exam Date: 09/02/21 Reason for Exam: CP Height: 5 ft 10 in Weight: 75.5 kg Protocol: LEXISCAN CARDIOLITE Stage: NA Duration of Exercise: NA Resting Heart Rate: 52 Resting Blood Pressure: 143/87 Maximum Achieved Heart Rate: 111 Maximum Achieved Blood Pressure: 169/102 85% PMHR: 144 100% PMHR: 169 METS: NA Technologist Comment: Stress Test Results/Findings: At baseline EKG showed normal sinus rhythm, normal axis, no significant ST or T wave abnormalities, minimal J-point elevation in the inferior leads. Patient received IV infusion of Lexiscan 0.4mg and at peak infusion EKG showed no significant change from baseline. Conclusions: 1. Normal EKG response to Lexiscan infusion 2. Nuclear imaging to be reported separately. MTDD
--- NOTE | 2021-09-04 12:16 | ECHOF ---
Referral Reason:re: LV function MEASUREMENTS -------- HEIGHT: 177.8 cm WEIGHT: 68.0 kg BP: 161/83 RVIDd: 3.4 cm (< 3.3) IVSd: 1.2 cm (0.6 - 1.1) LVIDd: 3.8 cm (3.9 - 5.3) LVPWd: 1.0 cm (0.6 - 1.1) IVSs: 1.7 cm LVIDs: 1.8 cm LVPWs: 1.9 cm LAESV Index (A-L): 35.21 ml/m Ao Diam: 2.9 cm (2.0 - 3.7) AV Cusp: 2.3 cm (1.5 - 2.6) LA Diam: 3.4 cm (2.7 - 3.8) MV EXCURSION: 23.080 mm (> 18.000) MV EF SLOPE: 49 mm/s (70 - 150) EPSS: 0.4 cm MV E Marcial: 0.80 m/s MV DecT: 206 ms MV A Marcial: 0.71 m/s MV E/A Ratio: 1.13 RAP: 5.00 mmHg RVSP: 30.55 mmHg FINDINGS -------- Sinus rhythm. This was a technically adequate study. The left ventricular size is normal. There is mild concentric left ventricular hypertrophy. Overa ll left ventricular systolic function is normal with, an EF between 55 - 60 %. The diastolic fillin g pattern is normal for the age of the patient 9.63. The right ventricle is mildly enlarged. LA is moderately dilated 34-39 ml/m2 The right atrial size is normal. Interatrial and interventricular septum intact. The aortic valve is trileaflet and appears structurally normal. There is no evidence of aortic regu rgitation. There is no evidence of aortic stenosis. Mild mitral regurgitation is present. Mild tricuspid regurgitation present. There is no evidence of pulmonary hypertension. The right v entricular systolic pressure, as measured by Doppler, is 30.55mmHg. There is no pulmonic regurgitation present. The aortic root size is normal. Normal inferior vena cava with normal inspiratory collapse consistent with estimated right atrial pre ssure of 5 mmHg. There is no pericardial effusion. CONCLUSIONS -------- 1. The left ventricular size is normal. 2. There is mild concentric left ventricular hypertrophy. 3. Overall left ventricular systolic function is normal with, an EF between 55 - 60 %. 4. The diastolic filling pattern is normal for the age of the patient 9.63 5. The right ventricle is mildly enlarged. 6. LA is moderately dilated 34-39 ml/m2 7. Mild mitral regurgitation is present. 8. Mild tricuspid regurgitation present. BLOOD BANK BUSINESS MANAGER: Gris Barrios RDCS
--- NOTE | 2021-09-05 06:45 | CDI ---
Documentation Clarification Form Date: 09/05/21 From: Terra Higgins Admit Date: 09/02/2021 10:49:00 AM Patient Name: Kuldeep Gotti Visit Number: [id number] Discharge Date: 09/02/2021 05:56:00 PM ATTENTION: The Clinical Documentation Specialists (CDI) and [employer] Coding Staff appreciate your assistance in clarifying documentation. Please respond to the clarification below the line at the bottom and electronically sign. The CDI & [employer] Coding staff will review the response and follow-up if needed. Please note: Queries are made part of the Legal Health Record. If you have any questions, please contact the author of this message via ITS. Dr. Bharati Lopez, Your patient has troponin level(s) of: 0.047, 0.043, 0.033. Please clarify if there is an additional diagnosis and/or clinical significance related to this value. Patient history/risk factors: HLD, HTN, epilepsy, fibromyalgia Clinical indicators: Presents to ER with complaints of nausea and vomiting and epigastric abdominal pain since yesterday evening. Consult: Elevated troponin, rule out type I NSTEMI mechanism with some epigastric pain and nausea. Stress test: Normal EKG response to Lexiscan infusion, No distinct perfusion abnormality. EKG: Sinus rhythm w premature supraventricular complexes and premature ventricular complexes or fusion complexes. Per ED-Rate 64, Premature 3 present.WY 134, QRS 88.QT 396.QTc 408.Normal axis. Normal QRS. No acute ST change. Treatment: 2-D Echo, Stress test Is there an additional diagnosis and/or clinical significance related to the above lab result/information? [ x ] NSTEMI type 1 [ ] Type 2 W[place] due to (specify cause ____) [ ] Non-ischemic myocardial injury [ ] Troponemia, not clinically significant [ ] Other, please specify [ ] Unable to determine MTDD
--- NOTE | 2021-09-23 14:59 | P.DS ---
Providers Date of admission: 09/02/21 10:49 Expected date of discharge: 09/02/21 Attending physician: Js Ramirez Consults: 08/30/21 11:06 Consult Physician Routine Consulting Provider: Jude Mendoza Consult Reason/Comments: cardiac eval and tx Do you want consulting provider notified?: Yes Primary care physician: Aldair Schmitz [facility] Course: Discharge diagnosis Intractable nausea/vomiting and epigastric discomfort. Mild elevated troponin level. Possible NSTEMI. seen by Cardiology. negative stress test. Hyperlipidemia with LDL 171 GERD Osteoarthritis Seizure disorder History of mitral valve prolapse ADD/ADHD There is less depression and panic disorder Previous history of smoking History of marijuana use GI and DVT prophylaxis with heparin subcu Hospital course Patient is a 51-year-old male with a known history of GERD, mitral valve prolapse and seizure disorder, ADD/ADHD, anxiety depression and panic disorder and previous history of smoking and marijuana use presents to ER with complaints of nausea and vomiting and epigastric abdominal pain since yesterday evening. Patient has been having decreased appetite. Denies any cough or sputum production. No fever no chills. Denies any radiation of the pain. No shortness of breath. Chest x-ray showed chronic changes without evidence for acute pulmonary disease. EKG showed sinus rhythm with PVCs. Laboratory pressure WBC 7.2 hemoglobin 13.7 and platelets 379 sodium 137 potassium 4.4 chloride 106 BUN 9 and creatinine 0.95 blood sugar is 115 Liver enzymes are not elevated Troponin 0 0.047, 0.043 and 0.033 Amylase 49 and lipase 106 and coronavirus PCR not detected. 08/31/2021 Patient is currently sitting in the chair comfortably. Awake alert and oriented x3. No complaints of chest pain or shortness breath. Nausea vomiting resolved and patient is able to tolerate oral diet today. Otherwise patient became anxious in the afternoon requiring Ativan dose. Patient will be continued on Cymbalta and pain management. Cardiology has seen the patient and recommends stress test on Thursday. Laboratory showed troponin trending down to 0.033. 09/01/2021 Patient is currently resting in bed. Awake alert and oriented x3. Less anxious today. No nausea vomiting abdominal pain or diarrhea. Stress test tomorrow. 09/02/21 Patient is currently resting. Awake alert and oriented x3. No complaints of chest pain or shortness breath. No other acute overnight issues. Lexiscan stress test today. Showed an EKG response to Lexiscan infusion and nuclear medicine showed no reversible ischemia. Patient is cleared from cardiology standpoint and is being discharged home today. Primary care physician in the clinic. Patient is symptomatic and is being discharged home today. Blood pressure fairly controlled. PHYSICAL EXAMINATION: Patient is lying in the bed comfortably, no acute distress, awake alert and oriented.. HEENT: Normocephalic. Neck is supple. Pupils reactive. Nostrils clear. Oral ca vity is moist. Neck reveals no JVD, carotid bruits, or thyromegaly. CHEST EXAMINATION: Trachea is central. Symmetrical expansion. Lung robles clear to auscultation and percussion. CARDIAC: Normal S1, S2 with no gallops. No murmurs ABDOMEN: Soft. Bowel sounds normal. No organomegaly. No abdominal bruits. Extremities: reveal no edema. No clubbing or cyanosis Neurologically awake, alert, oriented x3 with well-coordinated movements. No focal deficits noted Skin: No rash or skin lesions. Psychiatric: Cooperative. Nonsuicidal Musculoskeletal: No joint swelling or deformity. Normal range of motion. Vital signs: Vital Signs Temp 98.0 F 09/02/21 00:00 Pulse 65 09/02/21 04:00 Resp 16 09/02/21 04:00 BP 121/74 09/02/21 04:00 Pulse Ox 97 09/02/21 04:00 Intake & Output 09/01/21 09/02/21 09/02/21 18:59 06:59 18:59 Intake Total 542 960 Balance 542 960 Intake: Oral 542 960 Other: # Voids 2 2 Patient Condition at Discharge: Stable Plan - Discharge Summary Discharge Rx Participant: No New Discharge Prescriptions: New Aspirin 81 mg PO DAILY #30 tab Atorvastatin [Lipitor] 40 mg PO HS #30 tab Metoprolol Succinate (ER) [Toprol XL] 25 mg PO DAILY #30 Continue hydrOXYzine pamoate [Vistaril] 50 mg PO TID PRN PRN Reason: Anxiety Gabapentin 800 mg PO TID Omeprazole 40 mg PO DAILY DULoxetine HCL [Cymbalta] 60 mg PO BID Discontinued Meloxicam [Mobic] 15 mg PO DAILY No Action Ondansetron Odt [Zofran ODT] 4 mg PO Q8HR PRN #10 tab PRN Reason: Nausea Discharge Medication List DULoxetine HCL [Cymbalta] 60 mg PO BID 08/30/21 [History] Gabapentin 800 mg PO TID 08/30/21 [History] Omeprazole 40 mg PO DAILY 08/30/21 [History] hydrOXYzine pamoate [Vistaril] 50 mg PO TID PRN 08/30/21 [History] Aspirin 81 mg PO DAILY #30 tab 09/02/21 [Rx] Atorvastatin [Lipitor] 40 mg PO HS #30 tab 09/02/21 [Rx] Metoprolol Succinate (ER) [Toprol XL] 25 mg PO DAILY #30 09/02/21 [Rx] Ondansetron Odt [Zofran ODT] 4 mg PO Q8HR PRN #10 tab 09/03/21 [Rx] Follow up Appointment(s)/Referral(s): Luz Elena Quinteros MD [Primary Care Provider] - 09/05/21 9:40 am Patient Instructions/Handouts: Cardiac Stress Test (DC) Discharge Disposition: HOME SELF-CARE
== END 2021-09-02 17:56 | disposition home or self-care (01) | DRG 282 ==
LOC: EC 08:19 → 3SCARD 11:05 → OBSVTOIN 09-02 10:49
PROVIDERS: ADMIT Hospitalist; ATTEND Hospitalist
DX: I21.4 Non-ST elevation (NSTEMI) myocardial infarction (principal); E78.5 Hyperlipidemia, unspecified; Z20.822 Contact with and (suspected) exposure to COVID-19; G40.909 Epilepsy, unspecified, not intractable, without status epilepticus; I10 Essential (primary) hypertension; M79.7 Fibromyalgia; F90.9 Attention-deficit hyperactivity disorder, unspecified type; F41.0 Panic disorder [episodic paroxysmal anxiety]; F41.8 Other specified anxiety disorders; I49.3 Ventricular premature depolarization; K21.9 Gastro-esophageal reflux disease without esophagitis; M19.90 Unspecified osteoarthritis, unspecified site; I34.1 Nonrheumatic mitral (valve) prolapse; Z79.1 Long term (current) use of non-steroidal anti-inflammatories (NSAID); Z79.899 Other long term (current) drug therapy; Z87.891 Personal history of nicotine dependence; Z86.14 Personal history of Methicillin resistant Staphylococcus aureus infection; Z87.19 Personal history of other diseases of the digestive system; Z87.81 Personal history of (healed) traumatic fracture; Z98.890 Other specified postprocedural states; Z88.6 Allergy status to analgesic agent; Z88.8 Allergy status to other drugs, medicaments and biological substances; Z80.7 Family history of other malignant neoplasms of lymphoid, hematopoietic and related tissues; Z80.42 Family history of malignant neoplasm of prostate; Z80.1 Family history of malignant neoplasm of trachea, bronchus and lung; Z81.2 Family history of tobacco abuse and dependence; Z82.49 Family history of ischemic heart disease and other diseases of the circulatory system
CPT/HCPCS: 36415; 71045; 78452; 80048; 80053; 80061; 82150; 83690; 84484; 85025; 85610; 85730; 87635; 93005; 93017; 93306; 96374; 96375; 99285

== ENCOUNTER 2021-09-02 21:48 | Emergency (ER) | payer MEDICARE, OTHER ==
[2021-09-02] MEDS ORDERED: SODIUM CHLORIDE 0.9% 1,000 ML IV ONE (23:54)
[2021-09-02] MEDS ORDERED: METOCLOPRAMIDE 5 MG/ML 2 ML VIAL IVP STA (23:54)
[2021-09-03] MEDS ORDERED: LORazepam 2 MG/ML INJ IV STA (00:30)
[2021-09-03] MEDS ORDERED: ONDANSETRON ODT 4 MG TAB PO STA ×2 (00:34→00:36)
[2021-09-03] MEDS ORDERED: LORazepam 1 MG TAB PO STA ×2 (00:34→00:35)
[2021-09-03 01:18] LABS: Basophils # (A) 0.1 k/uL (0-0.2); Basophils % (A) 1 %; Eosinophils # (A) 0.3 k/uL (0-0.7); Eosinophils % (A) 2 %; HGB 16.1 gm/dL (13.0-17.5); Lymphocytes # (A) 2.4 k/uL (1.0-4.8); Lymphocytes % (A) 15 %; MCH 30.5 pg (25.0-35.0); MCHC 33.5 g/dL (31.0-37.0); MCV 91.1 fL (80.0-100.0); Mean Platelet Volume 6.8; Monocytes # (A) 0.9 k/uL (0-1.0); Monocytes % (A) 5 %; Neutrophils # (A) 12.6 k/uL (1.3-7.7); Neutrophils % (A) 76 %; Platelet Count 451 k/uL (150-450); RBC 5.28 m/uL (4.30-5.90); RDW 12.6 % (11.5-15.5); WBC 16.5 k/uL (3.8-10.6)
[2021-09-03 01:27] LABS: African American GFR (CKD) 89 (>60 ml/min/1.73 sqM); Alcohol <10 mg/dL; Anion Gap 17 mmol/L; Blood Urea Nitrogen 18 mg/dL (9-20); Calcium 11.3 mg/dL (8.4-10.2); Carbon Dioxide 17 mmol/L (22-30); Chloride 100 mmol/L (98-107); Glucose 134 mg/dL (74-99); Non-African American GFR(CKD) 77 (>60 ml/min/1.73 sqM); Sodium 134 mmol/L (137-145)
--- NOTE | 2021-09-03 02:45 | ED ---
General Adult HPI - General Chief complaint: Shortness of Breath Stated complaint: hypertension Time Seen by Provider: 09/02/21 23:33 Source: patient, EMS Mode of arrival: EMS Limitations: no limitations - History of Present Illness Initial comments: Patient's 51-year-old man who presents with complaint of nausea and vomiting. He is also having severe anxiety related to this. Currently denying abdominal pain. Has not noted fever or chills. Some cough nonproductive. -: hour(s) Severity scale (1-10): 1 Quality: burning Consistency: constant Improves with: none Worsens with: none Associated Symptoms: nausea/vomiting Treatments Prior to Arrival: none - Related Data Home Medications Medication Instructions Recorded Confirmed DULoxetine HCL [Cymbalta] 60 mg PO BID 08/30/21 08/30/21 Gabapentin 800 mg PO TID 08/30/21 08/30/21 Omeprazole 40 mg PO DAILY 08/30/21 08/30/21 hydrOXYzine pamoate [Vistaril] 50 mg PO TID PRN 08/30/21 08/30/21 Previous Rx's Medication Instructions Recorded Aspirin 81 mg PO DAILY #30 tab 09/02/21 Atorvastatin [Lipitor] 40 mg PO HS #30 tab 09/02/21 Metoprolol Succinate (ER) [Toprol 25 mg PO DAILY #30 09/02/21 XL] Ondansetron Odt [Zofran ODT] 4 mg PO Q8HR PRN #10 tab 09/03/21 Allergies Allergy/AdvReac Type Severity Reaction Status Date / Time aspirin AdvReac EARS RING Verified 09/02/21 23:26 diphenhydramine HCl AdvReac Hallucinati Verified 09/02/21 23:26 [From Benadryl] ons antipychotics AdvReac Intermediate Chest Pain Uncoded 09/02/21 23:26 Review of Systems ROS Statement: Those systems with pertinent positive or pertinent negative responses have been documented in the HPI. ROS Other: All systems not noted in ROS Statement are negative. Constitutional: Denies: fever, chills, weakness Respiratory: Reports: cough. Denies: dyspnea Cardiovascular: Denies: chest pain, palpitations, edema Gastrointestinal: Reports: nausea, vomiting. Denies: diarrhea, hematemesis, melena, hematochezia Genitourinary: Denies: dysuria, frequency Musculoskeletal: Denies: back pain Skin: Denies: rash Neurological: Denies: headache, weakness Psychiatric: Reports: anxiety Past Medical History Past Medical History: GERD/Reflux, Osteoarthritis (OA), Seizure Disorder Additional Past Medical History / Comment(s): mitral valve prolapse, last seizure 1999, L inguinal hernia, pancreatitis in 2011 History of Any Multi-Drug Resistant Organisms: MRSA Date of last positivie culture/infection: 11/18/15 MDRO Source:: HEAD Past Surgical History: Orthopedic Surgery Additional Past Surgical History / Comment(s): left humerus ORIF with pins since removed, lanced lymph nodes from left arm Past Anesthesia/Blood Transfusion Reactions: No Reported Reaction Past Psychological History: ADD/ADHD, Anxiety, Depression, Panic Disorder Smoking Status: Former smoker Past Alcohol Use History: None Reported Past Drug Use History: Marijuana - Past Family History Father Family Medical History: Cancer Additional Family Medical History / Comment(s): from Hodgkins lymphoma. He also had prostate cancer. He at 60yrs. Mother Family Medical History: Cancer Additional Family Medical History / Comment(s): at age 57 from lung cancer. She was a smoker. Sister(s) History Unknown: Yes Additional Family Medical History / Comment(s): One sister with no major medical problems. Sister is payee for patient General Exam Limitations: no limitations General appearance: alert, in no apparent distress Head exam: Present: atraumatic, normocephalic Eye exam: Present: normal appearance. Absent: scleral icterus, conjunctival injection ENT exam: Present: mucous membranes dry Neck exam: Present: normal inspection Respiratory exam: Present: normal lung sounds bilaterally. Absent: respiratory distress, wheezes, rales, rhonchi, stridor Cardiovascular Exam: Present: regular rate, normal rhythm, normal heart sounds. Absent: systolic murmur, diastolic murmur, rubs, gallop GI/Abdominal exam: Present: soft. Absent: distended, tenderness, guarding, rebound, rigid, mass Extremities exam: Present: normal inspection, normal capillary refill. Absent: pedal edema, calf tenderness Back exam: Present: normal inspection. Absent: CVA tenderness (R), CVA tenderness (L) Neurological exam: Present: alert Psychiatric exam: Present: anxious Skin exam: Present: warm, dry, intact, normal color. Absent: rash Course Vital Signs 09/02/21 09/03/21 09/03/21 23:19 00:05 03:17 Temperature 97.9 F 98.4 F Pulse Rate 125 H 86 Respiratory 24 34 H 18 Rate Blood Pressure 159/82 138/66 O2 Sat by Pulse 100 97 Oximetry Medical Decision Making - Lab Data Result diagrams: 09/03/21 01:05 09/03/21 01:05 Lab Results 09/03/21 09/03/21 09/03/21 Range/Units 01:05 01:05 01:05 WBC 16.5 H (3.8-10.6) k/uL RBC 5.28 (4.30-5.90) m/uL Hgb 16.1 (13.0-17.5) gm/dL Hct 48.0 (39.0-53.0) % MCV 91.1 (80.0-100.0) fL MCH 30.5 (25.0-35.0) pg MCHC 33.5 (31.0-37.0) g/dL RDW 12.6 (11.5-15.5) % Plt Count 451 H (150-450) k/uL MPV 6.8 Neutrophils % 76 % Lymphocytes % 15 % Monocytes % 5 % Eosinophils % 2 % Basophils % 1 % Neutrophils # 12.6 H (1.3-7.7) k/uL Lymphocytes # 2.4 (1.0-4.8) k/uL Monocytes # 0.9 (0-1.0) k/uL Eosinophils # 0.3 (0-0.7) k/uL Basophils # 0.1 (0-0.2) k/uL Sodium 134 L (137-145) mmol/L Potassium 5.0 (3.5-5.1) mmol/L Chloride 100 (98-107) mmol/L Carbon Dioxide 17 L (22-30) mmol/L Anion Gap 17 mmol/L BUN 18 (9-20) mg/dL Creatinine 1.11 (0.66-1.25) mg/dL Est GFR (CKD-EPI)AfAm 89 (>60 ml/min/1.73 sqM) Est GFR (CKD-EPI)NonAf 77 (>60 ml/min/1.73 sqM) Glucose 134 H (74-99) mg/dL Calcium 11.3 H (8.4-10.2) mg/dL Serum Alcohol <10 mg/dL Coronavirus (PCR) Not Detected (Not Detectd) Disposition Clinical Impression: Vomiting Disposition: HOME SELF-CARE Condition: Good Instructions (If sedation given, give patient instructions): Acute Nausea and Vomiting (ED) Prescriptions: Ondansetron Odt [Zofran ODT] 4 mg PO Q8HR PRN #10 tab PRN Reason: Nausea Is patient prescribed a controlled substance at d/c from ED?: No Referrals: Luz Elena Quinteros MD [Primary Care Provider] - 1-2 days
[2021-09-03] MEDS ORDERED: TRIMETHOBENZAMIDE 100 MG/ML 2 ML VIAL IM STA (03:01)
[2021-09-03 03:19] VITALS: BP 138/66; PULSE 86; RESP 18; TEMP 98.4
== END 2021-09-03 03:55 | disposition home or self-care (01) ==
LOC: EC 21:48
DX: R11.2 Nausea with vomiting, unspecified (principal); K21.9 Gastro-esophageal reflux disease without esophagitis; M19.90 Unspecified osteoarthritis, unspecified site; F41.9 Anxiety disorder, unspecified; F90.9 Attention-deficit hyperactivity disorder, unspecified type; F32.A Depression, unspecified; F12.90 Cannabis use, unspecified, uncomplicated; Z20.822 Contact with and (suspected) exposure to COVID-19; Z79.82 Long term (current) use of aspirin; Z88.1 Allergy status to other antibiotic agents; Z87.891 Personal history of nicotine dependence
CPT/HCPCS: 99284; 96374; 96375; 96372; 36415; 80048; 85025; 87635; G0480; J2060; J2765; J3250; 80320

== ENCOUNTER 2023-12-12 11:16 | Emergency (ER) | payer MEDICARE, OTHER ==
--- NOTE | 2023-12-12 11:58 | ED ---
Skin/Abscess/FB HPI - General Source: patient, RN notes reviewed Mode of arrival: ambulatory Limitations: no limitations <Ellie Gray - Last Filed: 12/12/23 11:56> - General Source: patient, RN notes reviewed Limitations: no limitations <Tyler Flores - Last Filed: 12/12/23 12:43> - General Chief complaint: Skin/Abscess/Foreign Body Stated complaint: Finger infection Time Seen by Provider: 12/12/23 11:30 - History of Present Illness Initial comments: Quick Note-this is a 53-year-old male with a chief complaint of right hand third digit pain and swelling. Patient states about 2 weeks ago he had a hangnail on his right middle finger. Over the past week he has noticed some increasing redness and purulent formation to the middle finger. He denies fevers, chills, body aches. (Ellie Gray) Patient is a pleasant 53-year-old male presenting to the emergency department with concern for a wound to his right middle finger. Patient states this started around a week ago and slowly progressively has worsened. Patient only has mild discomfort. No fever. No other area of involvement. No history of similar symptoms previously. (Tyler Flores) - Related Data Home Medications Medication Instructions Recorded Confirmed DULoxetine HCL [Cymbalta] 60 mg PO BID 08/30/21 08/30/21 Gabapentin 800 mg PO TID 08/30/21 08/30/21 Omeprazole 40 mg PO DAILY 08/30/21 08/30/21 hydrOXYzine pamoate [Vistaril] 50 mg PO TID PRN 08/30/21 08/30/21 Previous Rx's Medication Instructions Recorded Aspirin 81 mg PO DAILY #30 tab 09/02/21 Atorvastatin [Lipitor] 40 mg PO HS #30 tab 09/02/21 Metoprolol Succinate (ER) [Toprol 25 mg PO DAILY #30 09/02/21 XL] Ondansetron Odt [Zofran ODT] 4 mg PO Q8HR PRN #10 tab 09/03/21 Allergies Allergy/AdvReac Type Severity Reaction Status Date / Time aspirin AdvReac EARS RING Verified 12/12/23 11:43 diphenhydramine HCl AdvReac Hallucinati Verified 12/12/23 11:43 [From Benadryl] ons antipychotics AdvReac Intermediate Chest Pain Uncoded 12/12/23 11:43 Review of Systems ROS Other: All systems not noted in ROS Statement are negative. <Ellie Gray - Last Filed: 12/12/23 11:56> ROS Other: All systems not noted in ROS Statement are negative. Constitutional: Denies: fever, chills Eyes: Denies: eye pain ENT: Denies: ear pain Musculoskeletal: Denies: back pain Skin: Reports: as per HPI <Tyler Flores - Last Filed: 12/12/23 12:43> ROS Statement: Those systems with pertinent positive or pertinent negative responses have been documented in the HPI. Past Medical History Past Medical History: GERD/Reflux, Osteoarthritis (OA), Seizure Disorder Additional Past Medical History / Comment(s): mitral valve prolapse, last seizure 1999, L inguinal hernia, pancreatitis in 2011 History of Any Multi-Drug Resistant Organisms: MRSA Date of last positivie culture/infection: 11/18/15 MDRO Source:: HEAD Past Surgical History: Orthopedic Surgery Additional Past Surgical History / Comment(s): left humerus ORIF with pins since removed, lanced lymph nodes from left arm Past Anesthesia/Blood Transfusion Reactions: No Reported Reaction Past Psychological History: ADD/ADHD, Anxiety, Depression, Panic Disorder Smoking Status: Former smoker Past Alcohol Use History: None Reported Past Drug Use History: Marijuana - Past Family History Father Family Medical History: Cancer Additional Family Medical History / Comment(s): from Hodgkins lymphoma. He also had prostate cancer. He at 60yrs. Mother Family Medical History: Cancer Additional Family Medical History / Comment(s): at age 57 from lung cancer. She was a smoker. Sister(s) History Unknown: Yes Additional Family Medical History / Comment(s): One sister with no major medical problems. Sister is payee for patient <Ellie Gray - Last Filed: 12/12/23 11:56> General Exam Limitations: no limitations <Ellie Gray - Last Filed: 12/12/23 11:56> Limitations: no limitations General appearance: alert, in no apparent distress Head exam: Present: normocephalic Eye exam: Present: normal appearance Respiratory exam: Present: normal lung sounds bilaterally Cardiovascular Exam: Present: regular rate, normal rhythm Extremities exam: Present: other (Right middle finger with paronychia on the ulnar side) Neurological exam: Present: alert Psychiatric exam: Present: normal affect, normal mood Skin exam: Present: other (Right middle finger paronychia) <Tyler Flores - Last Filed: 12/12/23 12:43> - General Exam Comments Initial Comments: Visual Physical Exam Vital signs reviewed General: Well-appearing, nontoxic, no acute distress. Head: Normocephalic, atraumatic Eyes: PERRLA, EOMI ENT: Airway patent Chest: Nonlabored breathing Skin: No visual rash, normal skin tone Neuro: Alert and oriented 3 Musculoskeletal: No gross abnormalities (Ellie Gray) Course Vital Signs 12/12/23 11:38 Temperature 97.8 F Pulse Rate 91 Respiratory 18 Rate Blood Pressure 130/86 O2 Sat by Pulse 99 Oximetry Procedures - Incision & Drainage Consent Obtained: verbal consent Site: hand Size (cm): 2 Sterile Field Used?: Yes Scalpel Used: #11 I&D Drainage Obtained: Pus Culture Obtained?: Yes Patient Tolerated Procedure: well, no complications - Nerve Block Consent Obtained: verbal consent Local Anesthetic Used: Lidocaine 1% Side: right Nerve Blocks: digital Complications: none Patient Tolerated Procedure: well, no complications <Tyler Flores - Last Filed: 12/12/23 12:43> Medical Decision Making <Ellie Gray - Last Filed: 12/12/23 11:56> <Tyler Flores - Last Filed: 12/12/23 12:43> - Medical Decision Making I completed the quick note portion of this chart signed Ellie Gray PA-C (Ellie Gray) Was pt. sent in by a medical professional or institution ([facility]HE[facility] Tellez, SERIALS LIBRARIAN, urgent care, hospital, or half-way...) When possible be specific @ -No Did you speak to anyone other than the patient for history (EMS, parent, family, police, friend...)? What history was obtained from this source @ -No Did you review nursing and triage notes (agree or disagree)? Why? @ -I reviewed and agree with nursing and triage notes Were old charts reviewed (outside hosp., previous admission, EMS record, old EKG, old radiological studies, urgent care reports/EKG's, half-way records)? Report findings @ -No old charts were reviewed Differential Diagnosis (chest pain, altered mental status, abdominal pain women, abdominal pain men, vaginal bleeding, weakness, fever, dyspnea, syncope, headache, dizziness, GI bleed, back pain, seizure, CVA, palpatations, mental health, musculoskeletal)? @ -Differential Musculoskeletal Muscular strain, contusion, ligament sprain, fracture, arthritis, septic arthritis, bursitis, cellulitis, muscle spasm, nerve compression, DVT, arterial occlusion, herpes zoster, electrolyte abnormality, tumor.... This is not meant to be in all inclusive list EKG interpreted by me (3pts min.). @ -As above X-rays interpreted by me (1pt min.). @ -None done CT interpreted by me (1pt min.). @ -None done U/S interpreted by me (1pt. min.). @ -None done What testing was considered but not performed or refused? (CT, X-rays, U/S, labs)? Why? @ -None What meds were considered but not given or refused? Why? @ -None Did you discuss the management of the patient with other professionals (professionals i.e. , PA, SERIALS LIBRARIAN, lab, RT, psych nurse, professor of social work, raschel knitting machine operator, teacher, safety security officer, transplant case manager)? Give summary @ -No Was smoking cessation discussed for >3mins.? @ -No Was critical care preformed (if so, how long)? @ -No Were there social determinants of health that impacted care today? How? (Homelessness, low income, unemployed, alcoholism, drug addiction, transportation, low edu. Level, literacy, decrease access to med. care, long-term, rehab)? @ -No Was there de-escalation of care discussed even if they declined (Discuss DNR or withdrawal of care, Hospice)? DNR status @ -No What co-morbidities impacted this encounter? (DM, HTN, Smoking, COPD, CAD, Cancer, CVA, ARF, Chemo, Hep., AIDS, mental health diagnosis, sleep apnea, morbid obesity)? @ -None Was patient admitted / discharged? Hospital course, mention meds given and route, prescriptions, significant lab abnormalities, going to OR and other pertinent info. @ -I&D done. Patient will be placed on antibiotics. Culture sent. Patient refuses all antibiotics other than amoxicillin secondary to history of stomach problems. Patient was advised against this however he refuses. Patient will be prescribed amoxicillin and is aware that there could be resistance and further problems. Culture is sent that should help with potential problems. Undiagnosed new problem with uncertain prognosis? @ -No Drug Therapy requiring intensive monitoring for toxicity (Heparin, Nitro, Insulin, Cardizem)? @ -No Were any procedures done? @ -I&D paronychia Diagnosis/symptom? @ -Paronychia right middle finger Acute, or Chronic, or Acute on Chronic? @ -Acute Uncomplicated (without systemic symptoms) or Complicated (systemic symptoms)? @ -Default Side effects of treatment? @ -No Exacerbation, Progression, or Severe Exacerbation? @ -No Poses a threat to life or bodily function? How? (Chest pain, USA, PA, pneumonia, PE, COPD, DKA, ARF, appy, cholecystitis, CVA, Diverticulitis, Homicidal, Suicidal, threat to staff... and all critical care pts) @ -No (Tyler Flores) Disposition <Ellie Gray - Last Filed: 12/12/23 11:56> Is patient prescribed a controlled substance at d/c from ED?: No Time of Disposition: 12:43 <Tyler Flores - Last Filed: 12/12/23 12:43> Clinical Impression: Paronychia Disposition: HOME SELF-CARE Condition: Stable Instructions (If sedation given, give patient instructions): Abscess Incision and Drainage (DC), Paronychia (ED) Additional Instructions: Please do follow-up with your primary care physician in the next couple of days for recheck. Return for increased pain or swelling, drainage, uncontrolled bleeding, fever, redness streaking up the hand or arm, worsening symptoms or any other concerns. Prescription has been sent to pharmacy. Please have your primary care physician check up on culture results to ensure antibiotic is working. Referrals: Luz Elena Quinteros MD [Primary Care Provider] - 1-2 days Denver Duong MD [STAFF PHYSICIAN] - 1-2 days
[2023-12-12 11:59] VITALS: RESP 18
[2023-12-12] MEDS: LIDOCAINE 1% INJ 10MG/ML (20 ML MDV) SQ ONE (12:20)
[2023-12-12 13:15] VITALS: BP 126/80; PULSE 86; TEMP 98
== END 2023-12-12 13:03 | disposition home or self-care (01) ==
LOC: EC 11:16
DX: L03.011 Cellulitis of right finger (principal); F12.90 Cannabis use, unspecified, uncomplicated; Z87.891 Personal history of nicotine dependence; Z88.8 Allergy status to other drugs, medicaments and biological substances
CPT/HCPCS: 87070; 87205; 26010; 99282; J2001; 87077; 87186

== ENCOUNTER 2025-03-15 14:21 | Emergency (ER) | payer MEDICARE, OTHER ==
[2025-03-15] MEDS: DIPH,PERTUS(ACELL)TETVAC-LF 0.5 ML VIAL IM ONE (14:49)
--- NOTE | 2025-03-15 15:02 | ED ---
Upper Extremity HPI - General Chief Complaint: Extremity Injury, Upper Stated Complaint: R thumb pain Time Seen by Provider: 03/15/25 14:36 Source: patient, RN notes reviewed Mode of arrival: ambulatory Limitations: no limitations - History of Present Illness Initial Comments: 54-year-old male presents emergency department complaint of right thumb pain. Patient states that window that was propped open came down slamming into his thumb. Caused a superficial abrasion, laceration and thumb pain. He is concerned he may be fractured he is unsure when his last tetanus was patient denies any paresthesias no other complaints. - Related Data Home Medications Medication Instructions Recorded Confirmed Gabapentin 800 mg PO QID 08/30/21 01/21/24 Omeprazole 40 mg PO DAILY 08/30/21 01/21/24 Meclizine [Antivert] 25 mg PO DAILY PRN 01/21/24 01/21/24 Melatonin 1 tab PO HS PRN 01/21/24 01/21/24 Previous Rx's Medication Instructions Recorded Ondansetron Odt [Zofran ODT] 4 mg PO Q8HR PRN #10 tab 09/03/21 Allergies Allergy/AdvReac Type Severity Reaction Status Date / Time aspirin AdvReac EARS RING Verified 03/15/25 14:28 diphenhydramine HCl AdvReac Hallucinati Verified 03/15/25 14:28 [From Benadryl] ons antipychotics AdvReac Intermediate Chest Pain Uncoded 01/22/24 07:43 Review of Systems ROS Statement: Those systems with pertinent positive or pertinent negative responses have been documented in the HPI. ROS Other: All systems not noted in ROS Statement are negative. Past Medical History Past Medical History: GERD/Reflux, Osteoarthritis (OA), Seizure Disorder Additional Past Medical History / Comment(s): mitral valve prolapse, last seizure 1999, L inguinal hernia, pancreatitis in 2011 History of Any Multi-Drug Resistant Organisms: MRSA Date of last positivie culture/infection: 11/18/15 MDRO Source:: HEAD Past Surgical History: Orthopedic Surgery Additional Past Surgical History / Comment(s): left humerus ORIF with pins since removed, lanced lymph nodes from left arm Past Anesthesia/Blood Transfusion Reactions: No Reported Reaction Past Psychological History: ADD/ADHD, Anxiety, Depression, Panic Disorder Smoking Status: Former smoker - Past Family History Father Family Medical History: Cancer Additional Family Medical History / Comment(s): from Hodgkins lymphoma. He also had prostate cancer. He at 60yrs. Mother Family Medical History: Cancer Additional Family Medical History / Comment(s): at age 57 from lung cancer. She was a smoker. Sister(s) History Unknown: Yes Additional Family Medical History / Comment(s): One sister with no major medical problems. Sister is payee for patient General Exam Limitations: no limitations General appearance: alert, in no apparent distress Head exam: Present: atraumatic, normocephalic, normal inspection Eye exam: Present: normal appearance, PERRL, EOMI. Absent: scleral icterus, conjunctival injection, periorbital swelling Respiratory exam: Present: normal lung sounds bilaterally. Absent: respiratory distress, wheezes, rales, rhonchi, stridor Cardiovascular Exam: Present: regular rate, normal rhythm, normal heart sounds. Absent: systolic murmur, diastolic murmur, rubs, gallop, clicks Extremities exam: Present: other (Right thumb there is small abrasion superficial no deep lacerations there is moderate tenderness ecchymosis and swelling noted) Course Vital Signs 03/15/25 14:26 Temperature 97.8 F Pulse Rate 71 Respiratory 16 Rate Blood Pressure 165/72 O2 Sat by Pulse 99 Oximetry Medical Decision Making - Medical Decision Making Was pt. sent in by a medical professional or institution (FARHEEN Tellez, SENIOR CHEMICAL PROCESS ENGINEER, urgent care, hospital, or [facility]...) When possible be specific @ -No Did you speak to anyone other than the patient for history (EMS, parent, family, police, friend...)? What history was obtained from this source @ -No Did you review nursing and triage notes (agree or disagree)? Why? @ -I reviewed and agree with nursing and triage notes Were old charts reviewed (outside hosp., previous admission, EMS record, old EKG, old radiological studies, urgent care reports/EKG's, [facility] records)? Report findings @ -No old charts were reviewed Differential Diagnosis (chest pain, altered mental status, abdominal pain women, abdominal pain men, vaginal bleeding, weakness, fever, dyspnea, syncope, headache, dizziness, GI bleed, back pain, seizure, CVA, palpatations, mental he alth, musculoskeletal)? @ -Thumb abrasion, contusion, thumb fracture EKG interpreted by me (3pts min.). @ -None X-rays interpreted by me (1pt min.). @No acute fracture CT interpreted by me (1pt min.). @ -None done U/S interpreted by me (1pt. min.). @ -None done What testing was considered but not performed or refused? (CT, X-rays, U/S, labs)? Why? @ -None What meds were considered but not given or refused? Why? @ -None Did you discuss the management of the patient with other professionals (professionals i.e. , PA, SENIOR CHEMICAL PROCESS ENGINEER, lab, RT, psych nurse, executive secretary social welfare, attorney lawyer, teacher, staff command and control officer, case management specialist)? Give summary @ -No Was smoking cessation discussed for >3mins.? @ -No Was critical care preformed (if so, how long)? @ -No Were there social determinants of health that impacted care today? How? (Homelessness, low income, unemployed, alcoholism, drug addiction, transportation, low edu. Level, literacy, decrease access to med. care, fdc, rehab)? @ -No Was there de-escalation of care discussed even if they declined (Discuss DNR or withdrawal of care, Hospice)? DNR status @ -No What co-morbidities impacted this encounter? (DM, HTN, Smoking, COPD, CAD, Cancer, CVA, ARF, Chemo, Hep., AIDS, mental health diagnosis, sleep apnea, morbid obesity)? @ -None Was patient admitted / discharged? Hospital course, mention meds given and route, prescriptions, significant lab abnormalities, going to OR and other pertinent info. @ -Discharge patient has a right thumb abrasion requiring no closure, patient has thumb contusion without fracture. Patient is discharged in stable condition Undiagnosed new problem with uncertain prognosis? @ -No Drug Therapy requiring intensive monitoring for toxicity (Heparin, Nitro, Insulin, Cardizem)? @ -No Were any procedures done? @ -No Diagnosis/symptom? @ -Thumb contusion, abrasion Acute, or Chronic, or Acute on Chronic? @ -Acute Uncomplicated (without systemic symptoms) or Complicated (systemic symptoms)? @ -Uncomplicated Side effects of treatment? @ -No Exacerbation, Progression, or Severe Exacerbation? @ -No Poses a threat to life or bodily function? How? (Chest pain, USA, IA, pneumonia, PE, COPD, DKA, ARF, appy, cholecystitis, CVA, Diverticulitis, Homicidal, Suicidal, threat to staff... and all critical care pts) @ -No Disposition Clinical Impression: Contusion of right thumb, Abrasion of right thumb Disposition: HOME SELF-CARE Condition: Stable Instructions (If sedation given, give patient instructions): Contusion in Adults (ED) Additional Instructions: Please return to the Emergency Department if symptoms worsen or any other concerns. Is patient prescribed a controlled substance at d/c from ED?: No Referrals: Hayden Tabares MD [Primary Care Provider] - 1-2 days Time of Disposition: 15:02
--- NOTE | 2025-03-15 15:11 | XR ---
EXAMINATION TYPE: XR finger RT DATE OF EXAM: 03/15/2025 3:06 PM COMPARISON: None CLINICAL INDICATION: Male, 54 years old with history of thumb pain, trauma; PHH, pain TECHNIQUE: 3 views coned-down right thumb FINDINGS: No acute fracture, subluxation, dislocation is seen. No retained radiopaque foreign body. IMPRESSION: No acute osseous abnormality seen; imaging coned down onto the right thumb. [facility], , 03/15/2025 3:08 PM
[2025-03-15 15:43] VITALS: BP 158/74; PULSE 68; RESP 18; TEMP 97.6
== END 2025-03-15 15:43 | disposition home or self-care (01) ==
LOC: EC 14:21
DX: S60.011A Contusion of right thumb without damage to nail, initial encounter (principal); Z87.891 Personal history of nicotine dependence; Z88.6 Allergy status to analgesic agent; Z88.8 Allergy status to other drugs, medicaments and biological substances; Z23 Encounter for immunization; W23.1XXA Caught, crushed, jammed, or pinched between stationary objects, initial encounter
CPT/HCPCS: 90471; 90715; 99283